=== PATIENT | male | born 1990 | race Caucasian/White ===

== ENCOUNTER 2017-11-30 13:38 | Emergency (ER) | payer SELFPAY ==
[2017-11-30 15:09] LABS: Bicarbonate 28 mEq/L (21-31); Glucose Level 90 mg/dL (65-120); Potassium 3.9 mEq/L (3.6-5.0); Sodium Level 139 mEq/L (135-145)
[2017-11-30 15:12] LABS: Protime INR 1.08
[2017-11-30 15:15] LABS: ALT/SGPT 19 IU/L (10-60); AST/SGOT 21 IU/L (10-42); Albumin 4.6 g/dL (3.2-5.5); Alkaline Phosphatase 84 IU/L (42-121); BUN Blood Urea Nitrogen 9 mg/dL (6-20); Bilirubin Direct 0.2 mg/dL (0-0.2); Bilirubin Total 0.8 mg/dL (0.3-1.2)
[2017-11-30 15:20] LABS: Absolute Lymphocytes (CBC) 2.3 K/uL (0.7-4.9); Absolute Monocytes 0.8 K/uL (0.1-1.3); Absolute Neutrophil 5.1 K/uL (1.8-8.0); Basophils % 0.8 % (0-1.3); Eosinophils % 0.9 % (0-4.4); Hematocrit 46.5 % (39.6-49.0); Lymphocytes % 27.8 % (15.3-44.8); MCH 30.9 pg (27.0-35.0); Monocytes % 9.4 % (3.3-12.3); RBC Red Blood Cell Count 5.11 M/uL (4.33-5.43)
[2017-11-30 15:26] LABS: Barbiturates NEGATIVE; Benzodiazepines NEGATIVE; Cocaine NEGATIVE; Opiates NEGATIVE; Phencyclidine NEGATIVE; THC Cannibis POSITIVE
[2017-11-30 15:27] LABS: METHAMPHETAM POSITIVE
[2017-11-30 15:27] LABS: Alcohol Serum/Plasma < 10 mg/dl; Salicylates Level < 4.0 mg/dl (<30)
[2017-11-30 15:34] LABS: Urine Blood NEGATIVE (NEG); Urine Glucose NEGATIVE (NEG); Urine Protein 1+ (NEG); Urine Specific Gravity 1.015 (1.005-1.030); Urine pH 7.5 (5.0-7.0)
--- NOTE | 2017-11-30 15:57 | EDPHYS ---
Physician Documentation [facility] Name: Kana Galdamez Age: 27 yrs Sex: Male : 1990 Arrival Date: 11/30/2017 Time: 13:42 Bed 18 Private MD: ED Physician Johnny Amaya HPI: 11/30 15:18 This 27 yrs old Male presents to ER via EMS with complaints of Suicidal pm1 Ideation. 15:18 The patient presents to the emergency department with depression, over work, inability pm1 to find a job, suicide ideation, but the patient has no formulated plan. Past psychiatric history: Prior diagnosis: bipolar disorder, ADD, Psychiatric medications include: unable to afford his medications for the past 3 months: Seroquel 400 mg PO BID , Adderall ? mg once daily, Trazodone 50 mg PO HS, Depakote ? mg PO BID, Primary psychiatric physician: the patient does not have a primary psychiatric physician, the patient has had a prior suicide gesture, Hanging attempt and found unresponsive 1 year ago, the patient has a previous inpatient psychiatric history. Associated signs and symptoms: Pertinent positives; depression, suicide ideation, Pertinent negatives: abdominal pain, chest pain, hallucinations, homicidal ideation, paranoia, substance abuse. The patient has experienced similar episodes in the past, multiple times. The patient has not recently seen a physician. Historical: - Allergies: 14:04 NKA; iw - PMHx: 14:04 ADD/ADHD; Asthma; Bipolar disorder; Depression; HEARING IMPAIRED; iw - PSHx: 12/01 02:17 Unable to obtain; ak1 - Immunization history:: Adult Immunizations unknown. - Social history:: Smoking status: Patient/guardian denies using tobacco. ROS: 11/30 16:00 Constitutional: Negative for fever, chills, and weight loss, Eyes: Negative for injury, pm1 pain, redness, and discharge, ENT: Negative for injury, pain, and discharge, Neck: Negative for injury, pain, and swelling, Cardiovascular: Negative for chest pain, palpitations, and edema, Respiratory: Negative for shortness of breath, cough, wheezing, and pleuritic chest pain, Abdomen/GI: Negative for abdominal pain, nausea, vomiting, diarrhea, and constipation, Back: Negative for injury and pain, : Negative for injury, bleeding, discharge, and swelling, MS/Extremity: Negative for injury and deformity, Skin: Negative for injury, rash, and discoloration, Neuro: Negative for headache, weakness, numbness, tingling, and seizure. Psych: Positive for depression, suicidal ideation, Negative for alcohol dependence, auditory hallucinations, visual hallucinations, homicidal ideation. Exam: 16:00 Constitutional: This is a well developed, well nourished patient who is awake, alert, pm1 and in no acute distress. Head/Face: Normocephalic, atraumatic. Eyes: Pupils equal round and reactive to light, extra-ocular motions intact. Lids and lashes normal. Conjunctiva and sclera are non-icteric and not injected. Cornea within normal limits. Periorbital areas with no swelling, redness, or edema. ENT: Nares patent. No nasal discharge, no septal abnormalities noted. Tympanic membranes are normal and external auditory canals are clear. Oropharynx with no redness, swelling, or masses, exudates, or evidence of obstruction, uvula midline. Mucous membranes moist. Neck: Trachea midline, no thyromegaly or masses palpated, and no cervical lymphadenopathy. Supple, full range of motion without nuchal rigidity, or vertebral point tenderness. No Meningismus. Chest/axilla: Normal chest wall appearance and motion. Nontender with no deformity. No lesions are appreciated. Cardiovascular: Regular rate and rhythm with a normal S1 and S2. No gallops, murmurs, or rubs. Normal PMI, no JVD. No pulse deficits. Respiratory: Lungs have equal breath sounds bilaterally, clear to auscultation and percussion. No rales, rhonchi or wheezes noted. No increased work of breathing, no retractions or nasal flaring. Abdomen/GI: Soft, non-tender, with normal bowel sounds. No distension or tympany. No guarding or rebound. No evidence of tenderness throughout. Back: No spinal tenderness. No costovertebral tenderness. Full range of motion. Skin: Warm, dry with normal turgor. Normal color with no rashes, no lesions, and no evidence of cellulitis. MS/ Extremity: Pulses equal, no cyanosis. Neurovascular intact. Full, normal range of motion. 16:00 Neuro: Orientation: is normal, Motor: is normal, moves all fours. 16:00 Psych: Behavior/mood is cooperative, depressed, Affect is animated, Oriented to person, place, time, Patient having thoughts of suicide. Denies suicidal plan. Delusions/hallucinations are not present. Vital Signs: 14:25 BP 128 / 73; Pulse 77; Resp 18; Temp 97.8(T); Pulse Ox 100% ; Pain 0/10; tt1 15:30 BP 118 / 69; Pulse 76; Resp 16; Pulse Ox 100% on R/A; kr2 16:27 BP 116 / 65; Pulse 82; Resp 16; Pulse Ox 100% on R/A; lk1 17:30 BP 107 / 64; Pulse 79; Resp 16; Pulse Ox 100% on R/A; lk1 18:28 BP 114 / 51; Pulse 69; Resp 18; Pulse Ox 100% on R/A; Pain 0/10; lk1 20:30 BP 111 / 62; Pulse 70; Resp 16; Pulse Ox 100% on R/A; lk1 12/01 00:21 BP 109 / 62; Pulse 67; Resp 16; Pulse Ox 99% on R/A; Pain 0/10; lk1 08:32 BP 112 / 68; Pulse 72; Resp 16 S; Pulse Ox 97% on R/A; jl7 13:16 BP 122 / 62; Pulse 70; Resp 14; Pulse Ox 100% on R/A; mh5 17:45 BP 118 / 78; Pulse 72; Resp 15; Pulse Ox 100% on R/A; mh5 21:31 BP 117 / 70; Pulse 67; Pulse Ox 100% ; fv 23:00 fv 12/02 04:25 fv 08:30 BP 111 / 66; Pulse 70; Resp 16; Pulse Ox 100% on R/A; rb1 12:30 BP 103 / 70; Pulse 78; Resp 16; Pulse Ox 100% on R/A; rb1 12/01 23:00 Patient sleeping fv 12/02 04:25 patient sleeping fv MDM: 11/30 13:52 Patient medically screened. pm1 15:55 Data reviewed: vital signs. Data interpreted: Pulse oximetry: on room air is 100 %. pm1 Interpretation: normal. Counseling: I had a detailed discussion with the patient and/or guardian regarding: the historical points, exam findings, and any diagnostic results supporting the discharge/admit diagnosis, the need to transfer to another facility, [facility] does not immediately have the required specialist. 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 While he has been in the ER he has been looking for a job through his friends and family. 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 Tomorrow he has a computer job that was secured through his brother that starts at 0630 tomorrow. The patient would like to be released so that he can go to work today. He was depressed that he did not have a job, but now that he has two jobs lined up, he is excited to go to work and make some money. He denies any current suicidal ideation and has no plans of hurting himself or others. 11/30 13:45 Order name: Acetaminophen; Complete Time: 15:38 pm11/30 13:45 Order name: Basic Metabolic Panel; Complete Time: 15:38 pm11/30 13:45 Order name: CBC with Diff; Complete Time: 16:32 pm11/30 13:45 Order name: ETOH Level; Complete Time: 15:38 pm11/30 13:45 Order name: Hepatic Function; Complete Time: 15:38 pm11/30 13:45 Order name: PT-INR; Complete Time: 15:38 pm11/30 13:45 Order name: Ptt, Activated; Complete Time: 15:38 pm11/30 13:45 Order name: Salicylate; Complete Time: 15:38 pm11/30 13:45 Order name: Urine Drug Screen; Complete Time: 15:38 pm11/30 13:45 Order name: EKG; Complete Time: 13:46 pm11/30 15:16 Order name: Urine Dipstick--Ancillary (enter results); Complete Time: 15:38 ag 12/01 07:47 Order name: Diet Regular; Complete Time: 07:48 rb1 11/30 13:45 Order name: EKG - Nurse/Tech; Complete Time: 14:45 pm11/30 13:45 Order name: IV Saline Lock; Complete Time: 02:23 pm11/30 13:45 Order name: Labs collected and sent; Complete Time: 14:45 pm11/30 13:45 Order name: Urine Dipstick-Ancillary (obtain specimen); Complete Time: 02:24 pm1 12/01 12:11 Order name: Diet Regular; Complete Time: 12:11 rb1 12/01 14:32 Order name: Diet Regular; Complete Time: 14:33 ss 12/01 17:42 Order name: Diet Regular; Complete Time: 17:42 rb1 12/02 07:27 Order name: Diet Regular; Complete Time: 07:28 rb1 12/02 11:28 Order name: Diet Regular; Complete Time: 11:28 rb1 Administered Medications: 12/01 15:45 Drug: hydrOXYzine 25 mg Route: PO; jl7 20:36 Follow up: Patient sleeping not in any distress fv 15:45 Drug: Nicotine 21 mg/24 hr 1 patches {Note: placed on left deltoid per pt request.} jl7 Route: Transdermal; Site: affected area; Disposition: 12/03 13:51 Co-signature as Attending Physician, Johnny Amaya MD I agree with the assessment and wa plan of care. Disposition: 12/02/17 14:52 Discharged to Home. Impression: Acute stress reaction. - Condition is Stable. - Discharge Instructions: No-harm Safety Contract. - Medication Reconciliation Form, Thank You Letter form. - Follow up: Emergency Department; When: As needed; Reason: Worsening of condition. Follow up: Private Physician; When: 2 - 3 days; Reason: Recheck today's complaints, Continuance of care, Re-evaluation by your physician. - Problem is new. - Symptoms have improved. Signatures: Dispatcher [employer] Katie Cartagena RN RN iw Krenek, Amber RN RN ak1 Akilah Camacho, RN RN rb1 Nader Reilly, ORDER DESK CLERK ORDER DESK CLERK pm1 Ora Sales RN RN jl7 Johnny Amaya MD MD wa Reaves, Karey, RN RN kr2 Sisi Crump Flomeliza RN fv Corrections: (The following items were deleted from the chart) 12/01 07:11/30 15:57 11/30/2017 15:57 Transfer ordered to Psych Facility. Diagnosis is Suicidal eb ideations. Reason for transfer: Higher level of care. Accepting physician is Psychiatrist . Condition is Stable. Problem is new. Symptoms have improved. pm1 12/02 14:51 12/01 07:27 11/30/2017 15:57 Transfer ordered to Psych Facility. Diagnosis is Suicidal pm1 ideations. Reason for transfer: Higher level of care. Accepting physician is Psychiatrist . Condition is Stable. Problem is new. Symptoms have improved. eb 12/02 14:52 14:52 12/02/2017 14:52 Discharged to Home. Impression: Major depressive disorder, pm1 recurrent, unspecified. Condition is Stable. Forms are Medication Reconciliation Form, Thank You Letter, Antibiotic Education, Prescription Opioid Use. Follow up: Emergency Department; When: As needed; Reason: Worsening of condition. Follow up: Private Physician; When: 2 - 3 days; Reason: Recheck today's complaints, Continuance of care, Re-evaluation by your physician. Problem is new. Symptoms have improved. pm1 15: 14:52 12/02/2017 14:52 Discharged to Home. Impression: Acute stress reaction. Condition rb1 is Stable. Forms are Medication Reconciliation Form, Thank You Letter, Antibiotic Education, Prescription Opioid Use. Follow up: Emergency Department; When: As needed; Reason: Worsening of condition. Follow up: Private Physician; When: 2 - 3 days; Reason: Recheck today's complaints, Continuance of care, Re-evaluation by your physician. Problem is new. Symptoms have improved. pm1
--- NOTE | 2017-11-30 15:57 | ER ---
Nurse's Notes [facility] Name: Kana Galdamez Age: 27 yrs Sex: Male : 1990 Arrival Date: 11/30/2017 Time: 13:42 Bed 18 Private MD: Diagnosis: Acute stress reaction Presentation: 11/30 13:42 Presenting complaint: Patient states: "I have no way to get a job, no one will hire me, iw I can't provide for myself, I just don't know what to do with myself, I feel like a piece of trash", when asked if pt has thoughts of killing himself, pt states "I don't know, I don't have any thoughts right now, I'm gonna do whatever makes me happy, whether it's killing myself or whatever I need to do" pt denies plan at this time, when asked f he has tried to kill himself in past pt states "I've tried to hang myself, I tried drinking bleach, I tried to use a gun and the bullet didn't go through, I tried taking pills, I can't even do that right". Transition of care: patient was not received from another setting of care. Onset of symptoms was November 30, 2017. Initial Sepsis Screen: Does the patient meet any 2 criteria? No. Patient's initial sepsis screen is negative. Does the patient have a suspected source of infection? No. Patient's initial sepsis screen is negative. Care prior to arrival: None. 13:42 Method Of Arrival: EMS 13:42 Acuity: RHETT 2 iw Historical: - Allergies: 14:04 NKA; iw - PMHx: 14:04 ADD/ADHD; Asthma; Bipolar disorder; Depression; HEARING IMPAIRED; iw - PSHx: 12/01 02:17 Unable to obtain; ak1 - Immunization history:: Adult Immunizations unknown. - Social history:: Smoking status: Patient/guardian denies using tobacco. Screenin/04 14:00 Abuse screen: Denies threats or abuse. Denies injuries from another. Nutritional kr2 screening: No deficits noted. Tuberculosis screening: No symptoms or risk factors identified. Fall Risk None identified. Assessment: 14:00 General: Appears in no apparent distress. comfortable, unkempt, well developed, well kr2 nourished, Behavior is cooperative, agitated, anxious. Pain: Denies pain. Neuro: Level of Consciousness is awake, alert, obeys commands, Oriented to person, place, time, situation. Cardiovascular: Capillary refill < 3 seconds in bilateral fingers Patient's skin is warm and dry. Respiratory: Airway is patent Respiratory effort is even, unlabored, Respiratory pattern is regular, symmetrical. GI: Abdomen is flat, non-distended. : No signs and/or symptoms were reported regarding the genitourinary system. EENT: Nares are clear Oral mucosa is moist. Derm: Skin is intact, is healthy with good turgor, Skin is pink, warm \\T\\ dry. Musculoskeletal: Circulation, motion, and sensation intact. 15:00 Reassessment: Patient and/or family updated on plan of care and expected duration. Pain lk1 level reassessed. Patient is alert, oriented x 3, equal unlabored respirations, skin warm/dry/pink. Patient states feeling better. General: Appears in no apparent distress. Behavior is calm, cooperative, appropriate for age. 16:34 Reassessment: [facility] reports there are no adult male discharges today but pt iw will remain on the wait list. 12/01 02:18 Reassessment: pt resting with eyes closed, resp even and unlabored, skin warm and dry. ak1 will continue to monitor. pt with sitter at bedside. 04:23 Reassessment: Patient appears in no apparent distress at this time. No changes from ak1 previously documented assessment. pt resting with eyes closed, sitter remains at bedside. 05:33 Reassessment: Patient appears in no apparent distress at this time. No changes from ak1 previously documented assessment. 06:30 Reassessment: Patient appears in no apparent distress at this time. No changes from ak1 previously documented assessment. sitter at bedside. pt resting with eyes closed, resp even and unlabored, skin warm and dry. will continue to monitor. 07:00 Reassessment: Patient appears in no apparent distress at this time. pt laying in bed jl7 with eyes closed, respiration even and unlabored, sitter remains at bedside. 08:00 Reassessment: No changes from previously documented assessment. jl7 12:00 Reassessment: pt sitting in bed watching TV, denies discomfort at this time. jl7 15:00 Reassessment: Pt requesting to smoke, provider notified, see MAR for orders. jl7 19:00 Reassessment: Patient appears in no apparent distress at this time. No changes from jd3 previously documented assessment. Patient and/or family updated on plan of care and expected duration. Pain level reassessed. Patient is alert, oriented x 3, equal unlabored respirations, skin warm/dry/pink. 21:09 Reassessment: No changes from previously documented assessment. General: appears to be fv sleeping prone postition. 21:33 Reassessment: Patient awake not in any distress, snacks served, stated need something fv to eat and drink.. 22:00 Reassessment: No changes from previously documented assessment. Respiratory: No fv deficits noted. 12/02 01:00 Reassessment: Patient not in any apparent distress sleeping most of the time. fv 03:00 Reassessment: No changes from previously documented assessment. fv 04:00 Reassessment: Patient sleeping not in any distress. fv 07:00 General: Appears in no apparent distress. comfortable, Behavior is calm, cooperative. rb1 Neuro: Level of Consciousness is awake, alert, obeys commands, Oriented to person, place, time, situation. Cardiovascular: Capillary refill < 3 seconds is brisk in bilateral fingers. Respiratory: Airway is patent Respiratory effort is even, unlabored, Respiratory pattern is regular, symmetrical. Derm: Skin is pink, warm \\T\\ dry. 08:00 Reassessment: pt. is resting with eyes closed, respirations even, unlabored. sitter at rb1 bedside. 09:00 Reassessment: Patient appears in no apparent distress at this time. Pt. is sitting on rb1 bedside eating breakfast. 09:18 Reassessment: Pt. ambulated to the restroom with supervision without incident. rb1 10:00 Reassessment: Patient appears in no apparent distress at this time. Patient and/or rb1 family updated on plan of care and expected duration. Pain level reassessed. Patient is alert, oriented x 3, equal unlabored respirations, skin warm/dry/pink. Patient denies pain at this time. 11:00 Reassessment: Patient appears in no apparent distress at this time. No changes from rb1 previously documented assessment. pt. is playing on his phone. 11:56 Reassessment: Patient appears in no apparent distress at this time. Patient and/or rb1 family updated on plan of care and expected duration. Pain level reassessed. Patient is alert, oriented x 3, equal unlabored respirations, skin warm/dry/pink. 12:50 Reassessment: Patient appears in no apparent distress at this time. No changes from rb1 previously documented assessment. pt. is eating lunch at the bedside. 13:45 Reassessment: Patient appears in no apparent distress at this time. Patient and/or rb1 family updated on plan of care and expected duration. Pain level reassessed. Patient is alert, oriented x 3, equal unlabored respirations, skin warm/dry/pink. 14:45 Reassessment: Patient appears in no apparent distress at this time. No changes from rb1 previously documented assessment. pt. is waiting to be discharged. Psych: 11/30 14:00 Subjective: Patient's mood is sad, irritable, hopeless, Delusions are denied, kr2 Hallucinations are denied Having thoughts of "doing whatever it takes to be happy. I have tried to kill myself before. I tried to hang myself, I tried taking drugs, I tried to shoot myself but the gun wouldn't fire.". Objective: Patient is irritable, Speech is rambling, Affect is inappropriate. Interventions: Removed personal items and placed in bag. Patient placed in hospital gown. Searched person for dangerous items. Suicide Risk Assessment: Sad Person Scale: Sex of patient: Male: Score 1 point. Age of patient: Score 1 point if patient 15-34. Depression: Score 1 point if signs of depression are present. Previous Attempt: Score 1 point if patient has previously attempted suicide. Substance Abuse: Score 1 point if patient abuses alcohol or drugs. Rational Thinking: Score 1 point if patient is lacking rational thinking. Social Support: Score 1 point if social support is lacking and/or unavailable. Organized Plan: Score 0 if patient did not have an organized plan in place. Relationship: Score 1 point if patient is , , , or for a single male Chronic Sickness: Score 0 point if patient does not have a chronic illness, debilitating, or severe disorder. Safety Checks: Personal items have been removed. Door is open. No visitors are present at this time. sitter present. Pt denies substance abuse. Vital Signs: 14:25 BP 128 / 73; Pulse 77; Resp 18; Temp 97.8(T); Pulse Ox 100% ; Pain 0/10; tt1 15:30 BP 118 / 69; Pulse 76; Resp 16; Pulse Ox 100% on R/A; kr2 16:27 BP 116 / 65; Pulse 82; Resp 16; Pulse Ox 100% on R/A; lk1 17:30 BP 107 / 64; Pulse 79; Resp 16; Pulse Ox 100% on R/A; lk1 18:28 BP 114 / 51; Pulse 69; Resp 18; Pulse Ox 100% on R/A; Pain 0/10; lk1 20:30 BP 111 / 62; Pulse 70; Resp 16; Pulse Ox 100% on R/A; lk1 12/01 00:21 BP 109 / 62; Pulse 67; Resp 16; Pulse Ox 99% on R/A; Pain 0/10; lk1 08:32 BP 112 / 68; Pulse 72; Resp 16 S; Pulse Ox 97% on R/A; jl7 13:16 BP 122 / 62; Pulse 70; Resp 14; Pulse Ox 100% on R/A; mh5 17:45 BP 118 / 78; Pulse 72; Resp 15; Pulse Ox 100% on R/A; mh5 21:31 BP 117 / 70; Pulse 67; Pulse Ox 100% ; fv 23:00 fv 12/02 04:25 fv 08:30 BP 111 / 66; Pulse 70; Resp 16; Pulse Ox 100% on R/A; rb1 12:30 BP 103 / 70; Pulse 78; Resp 16; Pulse Ox 100% on R/A; rb1 12/01 23:00 Patient sleeping fv 12/02 04:25 patient sleeping fv ED Course: 11/30 13:42 Patient arrived in ED. iw 13:43 Nader Reilly NP is PHCP. pm1 13:43 Johnny Amaya MD is Attending Physician. pm1 13:48 Triage completed. iw 13:55 Patient has correct armband on for positive identification. Placed in gown. Bed in low kr2 position. Valuables at nurses station. Sitter at bedside. 14:00 Safety Checks: Personal items have been removed The door is open or patient has been kr2 placed in a hallway bed/chair. There are no family/friend visitors at this time sitter at bedside. 14:00 Arm band placed on. kr2 14:15 Safety Checks: Personal items have been removed The door is open or patient has been kr2 placed in a hallway bed/chair. There are no family/friend visitors at this time Sitter at bedside. 14:26 EKG done, by electronic lab technician. reviewed by Johnny Amaya MD. at1 14:30 Safety Checks: Personal items have been removed The door is open or patient has been kr2 placed in a hallway bed/chair. There are no family/friend visitors at this time Sitter at bedside. 14:30 Missed attempt(s): 20 gauge in right antecubital area. Bleeding controlled, band aid tt1 applied, catheter tip intact. 14:45 Safety Checks: Personal items have been removed The door is open or patient has been kr2 placed in a hallway bed/chair. There are no family/friend visitors at this time. 14:45 Inserted saline lock: 22 gauge in left antecubital area, using aseptic technique. Blood kr2 collected. Patient states, "Sticking me for IV's hurts, next time I will not tell my friend or anybody what I am thinking I will just shoot myself." Patient demanded IV be removed, stating "it hurts too much." IV dc'd, tip intact, bleeding stopped, bandage applied. Provider notified of patient's statement. Sitter at bedside. 15:00 Safety Checks: Personal items have been removed The door is open or patient has been kr2 placed in a hallway bed/chair. There are no family/friend visitors at this time Sitter at bedside. 15:13 Marily Workman, GUSTABO is Primary Nurse. lk1 15:15 Safety Checks: Personal items have been removed The door is open or patient has been kr2 placed in a hallway bed/chair. There are no family/friend visitors at this time Sitter at bedside. 15:30 Safety Checks: Personal items have been removed The door is open or patient has been lk1 placed in a hallway bed/chair. There are no family/friend visitors at this time. 15:45 Safety Checks: Personal items have been removed The door is open or patient has been lk1 placed in a hallway bed/chair. There are no family/friend visitors at this time. 15:54 Patients demographics and results send out to all [facility] facilities. ag 16:00 Appears to be sleeping. Safety Checks: Personal items have been removed The door is lk1 open or patient has been placed in a hallway bed/chair. There are no family/friend visitors at this time. 16:00 per [facility] has no male beds and will have to put him on a wait list. eb 16:15 Appears to be sleeping. Safety Checks: Personal items have been removed The door is lk1 open or patient has been placed in a hallway bed/chair. There are no family/friend visitors at this time. 16:30 Appears to be sleeping. Safety Checks: Personal items have been removed The door is lk1 open or patient has been placed in a hallway bed/chair. There are no family/friend visitors at this time. 16:45 Safety Checks: Personal items have been removed The door is open or patient has been lk1 placed in a hallway bed/chair. There are no family/friend visitors at this time. 17:00 Safety Checks: Personal items have been removed The door is open or patient has been lk1 placed in a hallway bed/chair. There are no family/friend visitors at this time. 17:15 Appears to be sleeping. Safety Checks: Personal items have been removed The door is lk1 open or patient has been placed in a hallway bed/chair. There are no family/friend visitors at this time. 17:30 Safety Checks: Personal items have been removed The door is open or patient has been lk1 placed in a hallway bed/chair. There are no family/friend visitors at this time. 17:45 eating sandwich and chips. Safety Checks: Personal items have been removed The door is lk1 open or patient has been placed in a hallway bed/chair. There are no family/friend visitors at this time. 18:00 Appears to be sleeping. Safety Checks: Personal items have been removed The door is lk1 open or patient has been placed in a hallway bed/chair. There are no family/friend visitors at this time. 18:12 PHCP role handed off by Nader Reilly NP kb 18:12 Monisha Matute FNP-C is PHCP. kb 18:15 Appears to be sleeping. Safety Checks: Personal items have been removed The door is lk1 open or patient has been placed in a hallway bed/chair. There are no family/friend visitors at this time. 18:30 Appears to be sleeping. Safety Checks: Personal items have been removed The door is lk1 open or patient has been placed in a hallway bed/chair. There are no family/friend visitors at this time. 18:45 Appears to be sleeping. Safety Checks: Personal items have been removed The door is lk1 open or patient has been placed in a hallway bed/chair. There are no family/friend visitors at this time. 19:00 Appears to be sleeping. Safety Checks: Personal items have been removed The door is lk1 open or patient has been placed in a hallway bed/chair. There are no family/friend visitors at this time. 19:15 Appears to be sleeping. Safety Checks: Personal items have been removed The door is lk1 open or patient has been placed in a hallway bed/chair. There are no family/friend visitors at this time. 19:30 Appears to be sleeping. Safety Checks: Personal items have been removed The door is lk1 open or patient has been placed in a hallway bed/chair. There are no family/friend visitors at this time. 19:45 Appears to be sleeping. Safety Checks: Personal items have been removed The door is lk1 open or patient has been placed in a hallway bed/chair. There are no family/friend visitors at this time. 20:00 Appears to be sleeping. Safety Checks: Personal items have been removed The door is lk1 open or patient has been placed in a hallway bed/chair. There are no family/friend visitors at this time. 20:15 Appears to be sleeping. Safety Checks: Personal items have been removed The door is lk1 open or patient has been placed in a hallway bed/chair. There are no family/friend visitors at this time. 20:30 Appears to be sleeping. Safety Checks: Personal items have been removed The door is lk1 open or patient has been placed in a hallway bed/chair. There are no family/friend visitors at this time. 20:45 Appears to be sleeping. Safety Checks: Personal items have been removed The door is lk1 open or patient has been placed in a hallway bed/chair. There are no family/friend visitors at this time. 21:00 Appears to be sleeping. Safety Checks: Personal items have been removed The door is lk1 open or patient has been placed in a hallway bed/chair. There are no family/friend visitors at this time. 21:15 Appears to be sleeping. Safety Checks: Personal items have been removed The door is lk1 open or patient has been placed in a hallway bed/chair. There are no family/friend visitors at this time. 21:30 Appears to be sleeping. Safety Checks: Personal items have been removed The door is lk1 open or patient has been placed in a hallway bed/chair. There are no family/friend visitors at this time. 21:45 Appears to be sleeping. Safety Checks: Personal items have been removed The door is lk1 open or patient has been placed in a hallway bed/chair. There are no family/friend visitors at this time. 22:00 Appears to be sleeping. Safety Checks: Personal items have been removed The door is lk1 open or patient has been placed in a hallway bed/chair. There are no family/friend visitors at this time. 22:15 Appears to be sleeping. Safety Checks: Personal items have been removed The door is lk1 open or patient has been placed in a hallway bed/chair. There are no family/friend visitors at this time 1:1 sitter. 22:30 Appears to be sleeping. Safety Checks: Personal items have been removed The door is lk1 open or patient has been placed in a hallway bed/chair. There are no family/friend visitors at this time. 22:45 Appears to be sleeping. Safety Checks: Personal items have been removed The door is lk1 open or patient has been placed in a hallway bed/chair. There are no family/friend visitors at this time. 23:00 Appears to be sleeping. Safety Checks: Personal items have been removed The door is lk1 open or patient has been placed in a hallway bed/chair. There are no family/friend visitors at this time. 23:15 Appears to be sleeping. Safety Checks: Personal items have been removed The door is lk1 open or patient has been placed in a hallway bed/chair. There are no family/friend visitors at this time. 23:30 Appears to be sleeping. Safety Checks: Personal items have been removed The door is lk1 open or patient has been placed in a hallway bed/chair. There are no family/friend visitors at this time. 23:45 Appears to be sleeping. Safety Checks: Personal items have been removed The door is lk1 open or patient has been placed in a hallway bed/chair. There are no family/friend visitors at this time. 12/01 00:00 Appears to be sleeping. Safety Checks: Personal items have been removed The door is lk1 open or patient has been placed in a hallway bed/chair. There are no family/friend visitors at this time. 00:15 Appears to be sleeping. Safety Checks: Personal items have been removed The door is lk1 open or patient has been placed in a hallway bed/chair. There are no family/friend visitors at this time. 00:30 Appears to be sleeping. Safety Checks: Personal items have been removed The door is lk1 open or patient has been placed in a hallway bed/chair. There are no family/friend visitors at this time. 00:45 Appears to be sleeping. transfer approval from receiving facility. Safety Checks: lk1 Personal items have been removed The door is open or patient has been placed in a hallway bed/chair. There are no family/friend visitors at this time. 00:45 Safety Checks: Personal items have been removed The door is open or patient has been fv placed in a hallway bed/chair. There are no family/friend visitors at this time. 01:00 Appears to be sleeping. Safety Checks: Personal items have been removed The door is lk1 open or patient has been placed in a hallway bed/chair. There are no family/friend visitors at this time. 01:15 Appears to be sleeping. Safety Checks: Personal items have been removed The door is lk1 open or patient has been placed in a hallway bed/chair. There are no family/friend visitors at this time. 01:30 Safety Checks: Personal items have been removed The door is open or patient has been ak1 placed in a hallway bed/chair. There are no family/friend visitors at this time. 01:45 Safety Checks: Personal items have been removed The door is open or patient has been ak1 placed in a hallway bed/chair. There are no family/friend visitors at this time. 02:00 Safety Checks: Personal items have been removed The door is open or patient has been ak1 placed in a hallway bed/chair. There are no family/friend visitors at this time. 02:15 Safety Checks: Personal items have been removed The door is open or patient has been ak1 placed in a hallway bed/chair. There are no family/friend visitors at this time. 02:17 No provider procedures requiring assistance completed. Patient did not have IV access ak1 during this emergency room visit. 02:30 Safety Checks: Personal items have been removed The door is open or patient has been ak1 placed in a hallway bed/chair. There are no family/friend visitors at this time. 02:45 Appears to be sleeping. Safety Checks: Personal items have been removed The door is ak1 open or patient has been placed in a hallway bed/chair. There are no family/friend visitors at this time. 03:00 Safety Checks: Personal items have been removed The door is open or patient has been ak1 placed in a hallway bed/chair. There are no family/friend visitors at this time. 03:15 Safety Checks: Personal items have been removed The door is open or patient has been ak1 placed in a hallway bed/chair. There are no family/friend visitors at this time. 03:30 Safety Checks: Personal items have been removed The door is open or patient has been ak1 placed in a hallway bed/chair. There are no family/friend visitors at this time. 03:45 Safety Checks: Personal items have been removed The door is open or patient has been ak1 placed in a hallway bed/chair. There are no family/friend visitors at this time. 04:00 Safety Checks: Personal items have been removed The door is open or patient has been ak1 placed in a hallway bed/chair. There are no family/friend visitors at this time pt with sitter at bedside. 04:15 Appears to be sleeping. Safety Checks: Personal items have been removed The door is ak1 open or patient has been placed in a hallway bed/chair. There are no family/friend visitors at this time. 04:30 Safety Checks: Personal items have been removed The door is open or patient has been ak1 placed in a hallway bed/chair. There are no family/friend visitors at this time. 04:45 Safety Checks: Personal items have been removed The door is open or patient has been ak1 placed in a hallway bed/chair. There are no family/friend visitors at this time. 05:00 Appears to be sleeping. transfer. Safety Checks: Personal items have been removed The ak1 door is open or patient has been placed in a hallway bed/chair. There are no family/friend visitors at this time. 05:15 Safety Checks: Personal items have been removed The door is open or patient has been ak1 placed in a hallway bed/chair. There are no family/friend visitors at this time. 05:30 Safety Checks: Personal items have been removed The door is open or patient has been ak1 placed in a hallway bed/chair. There are no family/friend visitors at this time. 05:45 Safety Checks: Personal items have been removed The door is open or patient has been ak1 placed in a hallway bed/chair. There are no family/friend visitors at this time. 06:00 Appears to be sleeping. transfer. Safety Checks: Personal items have been removed The ak1 door is open or patient has been placed in a hallway bed/chair. There are no family/friend visitors at this time. 06:15 Safety Checks: Personal items have been removed The door is open or patient has been ak1 placed in a hallway bed/chair. There are no family/friend visitors at this time. 06:27 PHCP role handed off by Monisha Matute FNP-C pm1 06:27 Nader Reilly NP is PHCP. pm1 06:30 Appears to be sleeping. transfer. Safety Checks: Personal items have been removed The ak1 door is open or patient has been placed in a hallway bed/chair. There are no family/friend visitors at this time. 06:45 Appears to be sleeping. transfer. Safety Checks: Personal items have been removed The ak1 door is open or patient has been placed in a hallway bed/chair. There are no family/friend visitors at this time. 07:00 Safety Checks: Personal items have been removed The door is open or patient has been jl7 placed in a hallway bed/chair. There are no family/friend visitors at this time. 07:15 Safety Checks: Personal items have been removed The door is open or patient has been jl7 placed in a hallway bed/chair. There are no family/friend visitors at this time. 07:24 [facility] spoke to nAt who will be paging a industrial relations representative to come eb out and evaluate the patient. 07:30 Safety Checks: Personal items have been removed The door is open or patient has been jl7 placed in a hallway bed/chair. There are no family/friend visitors at this time. 07:45 Safety Checks: Personal items have been removed The door is open or patient has been jl7 placed in a hallway bed/chair. There are no family/friend visitors at this time. 08:00 Safety Checks: Personal items have been removed The door is open or patient has been jl7 placed in a hallway bed/chair. There are no family/friend visitors at this time. 08:15 Safety Checks: Personal items have been removed The door is open or patient has been jl7 placed in a hallway bed/chair. There are no family/friend visitors at this time. 08:30 Safety Checks: Personal items have been removed The door is open or patient has been jl7 placed in a hallway bed/chair. There are no family/friend visitors at this time. 08:45 Safety Checks: Personal items have been removed The door is open or patient has been jl7 placed in a hallway bed/chair. There are no family/friend visitors at this time. 09:00 Safety Checks: Personal items have been removed The door is open or patient has been jl7 placed in a hallway bed/chair. There are no family/friend visitors at this time. 09:11 Tonia from [facility] here to evaluate patient. eb 09:15 Safety Checks: Personal items have been removed The door is open or patient has been jl7 placed in a hallway bed/chair. There are no family/friend visitors at this time. 09:30 Safety Checks: Personal items have been removed The door is open or patient has been jl7 placed in a hallway bed/chair. There are no family/friend visitors at this time. 09:45 Primary Nurse role handed off by Marily Workman RN jl 09:45 Ora Sales RN is Primary Nurse. 09:45 Safety Checks: Personal items have been removed The door is open or patient has been jl7 placed in a hallway bed/chair. There are no family/friend visitors at this time. 10:00 Safety Checks: Personal items have been removed The door is open or patient has been jl7 placed in a hallway bed/chair. There are no family/friend visitors at this time. 10:15 Safety Checks: Personal items have been removed The door is open or patient has been jl7 placed in a hallway bed/chair. There are no family/friend visitors at this time. 10:30 Safety Checks: Personal items have been removed The door is open or patient has been jl7 placed in a hallway bed/chair. There are no family/friend visitors at this time. 10:45 Safety Checks: Personal items have been removed The door is open or patient has been jl7 placed in a hallway bed/chair. There are no family/friend visitors at this time. 11:00 Safety Checks: Personal items have been removed The door is open or patient has been jl7 placed in a hallway bed/chair. There are no family/friend visitors at this time. 11:15 Safety Checks: Personal items have been removed The door is open or patient has been jl7 placed in a hallway bed/chair. There are no family/friend visitors at this time. 11:30 Safety Checks: Personal items have been removed The door is open or patient has been jl7 placed in a hallway bed/chair. There are no family/friend visitors at this time. 11:45 Safety Checks: Personal items have been removed The door is open or patient has been jl7 placed in a hallway bed/chair. There are no family/friend visitors at this time. 12:00 Safety Checks: Personal items have been removed The door is open or patient has been jl7 placed in a hallway bed/chair. There are no family/friend visitors at this time. 12:15 Safety Checks: Personal items have been removed The door is open or patient has been jl7 placed in a hallway bed/chair. There are no family/friend visitors at this time. 12:30 Safety Checks: Personal items have been removed The door is open or patient has been jl7 placed in a hallway bed/chair. There are no family/friend visitors at this time. 12:45 Safety Checks: Personal items have been removed The door is open or patient has been jl7 placed in a hallway bed/chair. There are no family/friend visitors at this time. 13:00 Safety Checks: Personal items have been removed The door is open or patient has been jl7 placed in a hallway bed/chair. There are no family/friend visitors at this time. 13:15 Safety Checks: Personal items have been removed The door is open or patient has been jl7 placed in a hallway bed/chair. There are no family/friend visitors at this time. 13:30 Safety Checks: Personal items have been removed The door is open or patient has been jl7 placed in a hallway bed/chair. There are no family/friend visitors at this time. 13:45 Safety Checks: Personal items have been removed The door is open or patient has been jl7 placed in a hallway bed/chair. There are no family/friend visitors at this time. 14:00 Safety Checks: Personal items have been removed The door is open or patient has been jl7 placed in a hallway bed/chair. There are no family/friend visitors at this time. Safety Checks: Personal items have been removed. 14:15 Safety Checks: Personal items have been removed The door is open or patient has been jl7 placed in a hallway bed/chair. There are no family/friend visitors at this time. 14:30 Safety Checks: Personal items have been removed The door is open or patient has been jl7 placed in a hallway bed/chair. There are no family/friend visitors at this time. 14:45 Safety Checks: Personal items have been removed The door is open or patient has been jl7 placed in a hallway bed/chair. There are no family/friend visitors at this time. 15:00 Safety Checks: Personal items have been removed The door is open or patient has been jl7 placed in a hallway bed/chair. There are no family/friend visitors at this time. 15:15 Safety Checks: Personal items have been removed The door is open or patient has been jl7 placed in a hallway bed/chair. There are no family/friend visitors at this time. 15:30 Safety Checks: Personal items have been removed The door is open or patient has been jl7 placed in a hallway bed/chair. There are no family/friend visitors at this time. 15:45 Safety Checks: Personal items have been removed The door is open or patient has been jl7 placed in a hallway bed/chair. There are no family/friend visitors at this time. 16:00 Safety Checks: Personal items have been removed The door is open or patient has been jl7 placed in a hallway bed/chair. There are no family/friend visitors at this time. 16:15 Safety Checks: Personal items have been removed The door is open or patient has been jl7 placed in a hallway bed/chair. There are no family/friend visitors at this time. 16:30 Safety Checks: Personal items have been removed The door is open or patient has been jl7 placed in a hallway bed/chair. There are no family/friend visitors at this time. 16:45 Safety Checks: Personal items have been removed The door is open or patient has been jl7 placed in a hallway bed/chair. There are no family/friend visitors at this time. 17:00 Safety Checks: Personal items have been removed The door is open or patient has been jl7 placed in a hallway bed/chair. There are no family/friend visitors at this time. 17:15 Safety Checks: Personal items have been removed The door is open or patient has been jl7 placed in a hallway bed/chair. There are no family/friend visitors at this time. 17:30 Safety Checks: Personal items have been removed The door is open or patient has been jl7 placed in a hallway bed/chair. There are no family/friend visitors at this time. 17:45 Safety Checks: Personal items have been removed The door is open or patient has been jl7 placed in a hallway bed/chair. There are no family/friend visitors at this time. 18:00 Safety Checks: Personal items have been removed The door is open or patient has been jl7 placed in a hallway bed/chair. There are no family/friend visitors at this time. 18:15 Safety checks: Items removed: yes. Door open/sign placed on door: yes. Family/friend mh5 present: no. 18:30 Safety checks: Items removed: yes. Door open/sign placed on door: yes. Family/friend mh5 present: no. 18:58 Safety checks: Items removed: yes. Door open/sign placed on door: yes. Family/friend mh5 present: no. 19:03 Report given to GUSTABO [place]. jl7 19:05 Safety checks: Items removed: yes. Door open/sign placed on door: yes. Family/friend oe present: no. 19:15 Safety checks: Items removed: yes. Door open/sign placed on door: yes. Family/friend oe present: no. 19:30 Safety checks: Items removed: yes. Door open/sign placed on door: yes. Family/friend oe present: no. 19:45 Safety checks: Items removed: yes. Door open/sign placed on door: yes. Family/friend oe present: no. 20:00 Assumed care of patient, currently sleeping. fv 20:03 Door closed. Lights dimmed. fv 20:12 Safety Checks: Personal items have been removed The door is open or patient has been fv placed in a hallway bed/chair. There are no family/friend visitors at this time. 20:32 Safety Checks: Personal items have been removed The door is open or patient has been fv placed in a hallway bed/chair. There are no family/friend visitors at this time. 20:48 Safety Checks: Personal items have been removed The door is open or patient has been fv placed in a hallway bed/chair. There are no family/friend visitors at this time. 21:36 Safety Checks: Personal items have been removed The door is open or patient has been fv placed in a hallway bed/chair. There are no family/friend visitors at this time. 21:52 Safety Checks: Personal items have been removed The door is open or patient has been fv placed in a hallway bed/chair. There are no family/friend visitors at this time. 22:15 Safety Checks: Personal items have been removed The door is open or patient has been fv placed in a hallway bed/chair. There are no family/friend visitors at this time. 22:30 Safety Checks: Personal items have been removed The door is open or patient has been fv placed in a hallway bed/chair. There are no family/friend visitors at this time. 22:45 Safety Checks: Personal items have been removed The door is open or patient has been fv placed in a hallway bed/chair. There are no family/friend visitors at this time. 23:00 Safety Checks: Personal items have been removed The door is open or patient has been fv placed in a hallway bed/chair. There are no family/friend visitors at this time. 23:06 Patient awake at this time alert, oriented not in any distress. Diet: Patient given fv snack. 23:15 Safety Checks: Personal items have been removed The door is open or patient has been fv placed in a hallway bed/chair. There are no family/friend visitors at this time. 23:30 Patient sleeping not in any apparent distress. fv 23:45 Safety Checks: Personal items have been removed The door is open or patient has been fv placed in a hallway bed/chair. There are no family/friend visitors at this time. 05 00:24 Safety Checks: Personal items have been removed The door is open or patient has been fv placed in a hallway bed/chair. There are no family/friend visitors at this time. 00:45 Safety Checks: Personal items have been removed The door is open or patient has been fv placed in a hallway bed/chair. There are no family/friend visitors at this time. 01:00 Appears to be sleeping. Safety Checks: Personal items have been removed The door is fv open or patient has been placed in a hallway bed/chair. There are no family/friend visitors at this time. 01:00 No needs at this time patient sleeping. fv 01:15 Appears to be sleeping. Safety Checks: Personal items have been removed The door is fv open or patient has been placed in a hallway bed/chair. There are no family/friend visitors at this time. 01:30 Appears to be sleeping. Safety Checks: Personal items have been removed The door is fv open or patient has been placed in a hallway bed/chair. There are no family/friend visitors at this time. 02:00 Appears to be sleeping. Safety Checks: Personal items have been removed The door is fv open or patient has been placed in a hallway bed/chair. There are no family/friend visitors at this time. 02:15 Safety Checks: Personal items have been removed The door is open or patient has been fv placed in a hallway bed/chair. There are no family/friend visitors at this time. 02:47 Safety Checks: Personal items have been removed The door is open or patient has been fv placed in a hallway bed/chair. There are no family/friend visitors at this time. 03:00 Patient sleeping most of the shift. fv 03:29 Appears to be sleeping. Safety Checks: Personal items have been removed The door is fv open or patient has been placed in a hallway bed/chair. There are no family/friend visitors at this time. 03:45 Appears to be sleeping. Safety Checks: Personal items have been removed The door is fv open or patient has been placed in a hallway bed/chair. There are no family/friend visitors at this time. 04:00 Safety Checks: Personal items have been removed The door is open or patient has been fv placed in a hallway bed/chair. There are no family/friend visitors at this time. 04:15 Safety Checks: Personal items have been removed The door is open or patient has been fv placed in a hallway bed/chair. There are no family/friend visitors at this time. 04:30 Safety Checks: Personal items have been removed The door is open or patient has been fv placed in a hallway bed/chair. There are no family/friend visitors at this time. 04:45 Appears to be sleeping. Safety Checks: Personal items have been removed The door is fv open or patient has been placed in a hallway bed/chair. There are no family/friend visitors at this time. 05:00 Appears to be sleeping. Safety Checks: Personal items have been removed The door is fv open or patient has been placed in a hallway bed/chair. There are no family/friend visitors at this time. 05:15 Appears to be sleeping. Safety Checks: Personal items have been removed The door is fv open or patient has been placed in a hallway bed/chair. There are no family/friend visitors at this time. 05:30 Safety Checks: Personal items have been removed The door is open or patient has been fv placed in a hallway bed/chair. There are no family/friend visitors at this time. 05:45 Safety Checks: Personal items have been removed The door is open or patient has been fv placed in a hallway bed/chair. There are no family/friend visitors at this time. 06:00 Safety Checks: Personal items have been removed The door is open or patient has been fv placed in a hallway bed/chair. There are no family/friend visitors at this time. 06:10 Report given to Elana. fv 06:15 Safety Checks: Personal items have been removed The door is open or patient has been ea placed in a hallway bed/chair. There are no family/friend visitors at this time Pt resting with eyes closed, respirations even and unlabored, chest expansions even and symmetrical. No s/s of pain or discomfort noted at this time. 06:30 Safety Checks: Personal items have been removed The door is open or patient has been ea placed in a hallway bed/chair. There are no family/friend visitors at this time. 06:45 Safety Checks: Personal items have been removed The door is open or patient has been ea placed in a hallway bed/chair. There are no family/friend visitors at this time. 07:00 Safety Checks: Personal items have been removed The door is open or patient has been ea placed in a hallway bed/chair. There are no family/friend visitors at this time. 07:00 Akilah Camacho, RN is Primary Nurse. rb1 07:00 Safety Checks: Personal items have been removed The door is open or patient has been rb1 placed in a hallway bed/chair. There are no family/friend visitors at this time. 07:15 Safety Checks: Personal items have been removed The door is open or patient has been rb1 placed in a hallway bed/chair. There are no family/friend visitors at this time. 07:20 called [facility] to check on bed status of the transfer, per intake eb the patients will be on a wait list until potential discharges tomorrow. 07:30 Safety Checks: Personal items have been removed The door is open or patient has been rb1 placed in a hallway bed/chair. There are no family/friend visitors at this time. 07:45 Safety Checks: Personal items have been removed The door is open or patient has been rb1 placed in a hallway bed/chair. There are no family/friend visitors at this time. 07:57 Safety checks: Items removed: yes. Door open/sign placed on door: yes. Family/friend tt1 present: no. 08:00 Safety Checks: Personal items have been removed The door is open or patient has been rb1 placed in a hallway bed/chair. There are no family/friend visitors at this time. 08:15 Safety Checks: Personal items have been removed The door is open or patient has been rb1 placed in a hallway bed/chair. There are no family/friend visitors at this time. 08:30 Safety Checks: Personal items have been removed The door is open or patient has been rb1 placed in a hallway bed/chair. There are no family/friend visitors at this time. 08:32 Safety checks: Items removed: yes. Door open/sign placed on door: yes. Family/friend tt1 present: no. 08:45 Safety Checks: Personal items have been removed The door is open or patient has been rb1 placed in a hallway bed/chair. There are no family/friend visitors at this time. 09:00 Safety Checks: Personal items have been removed The door is open or patient has been rb1 placed in a hallway bed/chair. There are no family/friend visitors at this time. 09:15 Safety Checks: Personal items have been removed The door is open or patient has been rb1 placed in a hallway bed/chair. There are no family/friend visitors at this time. 09:30 Safety Checks: Personal items have been removed The door is open or patient has been rb1 placed in a hallway bed/chair. There are no family/friend visitors at this time. 09:45 Safety Checks: Personal items have been removed The door is open or patient has been rb1 placed in a hallway bed/chair. There are no family/friend visitors at this time. 10:00 Safety Checks: Personal items have been removed The door is open or patient has been rb1 placed in a hallway bed/chair. There are no family/friend visitors at this time. 10:15 Safety Checks: Personal items have been removed The door is open or patient has been rb1 placed in a hallway bed/chair. There are no family/friend visitors at this time. 10:30 Safety Checks: Personal items have been removed The door is open or patient has been rb1 placed in a hallway bed/chair. There are no family/friend visitors at this time. 10:45 Safety Checks: Personal items have been removed The door is open or patient has been rb1 placed in a hallway bed/chair. There are no family/friend visitors at this time. 11:00 Safety Checks: Personal items have been removed The door is open or patient has been rb1 placed in a hallway bed/chair. There are no family/friend visitors at this time. 11:15 Safety Checks: Personal items have been removed The door is open or patient has been rb1 placed in a hallway bed/chair. There are no family/friend visitors at this time. 11:30 Safety Checks: Personal items have been removed The door is open or patient has been rb1 placed in a hallway bed/chair. There are no family/friend visitors at this time. 11:45 Safety Checks: Personal items have been removed The door is open or patient has been rb1 placed in a hallway bed/chair. There are no family/friend visitors at this time. 12:00 Safety Checks: Personal items have been removed The door is open or patient has been rb1 placed in a hallway bed/chair. There are no family/friend visitors at this time. 12:15 Safety Checks: Personal items have been removed The door is open or patient has been rb1 placed in a hallway bed/chair. There are no family/friend visitors at this time. 12:30 Safety Checks: Personal items have been removed The door is open or patient has been rb1 placed in a hallway bed/chair. There are no family/friend visitors at this time. 12:45 Safety Checks: Personal items have been removed The door is open or patient has been rb1 placed in a hallway bed/chair. There are no family/friend visitors at this time. 13:00 Safety Checks: Personal items have been removed The door is open or patient has been rb1 placed in a hallway bed/chair. There are no family/friend visitors at this time. 13:15 Safety Checks: Personal items have been removed The door is open or patient has been rb1 placed in a hallway bed/chair. There are no family/friend visitors at this time. 13:30 Safety Checks: Personal items have been removed The door is open or patient has been rb1 placed in a hallway bed/chair. There are no family/friend visitors at this time. 13:45 Safety Checks: Personal items have been removed The door is open or patient has been rb1 placed in a hallway bed/chair. There are no family/friend visitors at this time. 14:00 Safety Checks: Personal items have been removed The door is open or patient has been rb1 placed in a hallway bed/chair. There are no family/friend visitors at this time. 14:15 Safety Checks: Personal items have been removed The door is open or patient has been rb1 placed in a hallway bed/chair. There are no family/friend visitors at this time. 14:30 Safety Checks: Personal items have been removed The door is open or patient has been rb1 placed in a hallway bed/chair. There are no family/friend visitors at this time. 14:45 Safety Checks: Personal items have been removed The door is open or patient has been rb1 placed in a hallway bed/chair. There are no family/friend visitors at this time. 15:00 Safety Checks: Personal items have been removed The door is open or patient has been rb1 placed in a hallway bed/chair. There are no family/friend visitors at this time. Administered Medications: 12/01 15:45 Drug: hydrOXYzine 25 mg Route: PO; jl7 20:36 Follow up: Patient sleeping not in any distress 15:45 Drug: Nicotine 21 mg/24 hr 1 patches {Note: placed on left deltoid per pt request.} jl7 Route: Transdermal; Site: affected area; Intake: Outcome: 11/30 15:57 ER care complete, transfer ordered by MD. pm1 12/02 14:52 Discharge ordered by MD. pm1 15:05 Patient left the ED. rb1 15:05 Discharged to home ambulatory, with friend. rb1 15:05 Condition: stable 15:05 Discharge instructions given to patient, Instructed on discharge instructions, follow up and referral plans. Demonstrated understanding of instructions, follow-up care, Prescriptions given X none Signatures: Monisha Matute, TEST ENGINE OPERATOR-C TEST ENGINE OPERATOR-Ckb Katie Patel RN RN iw Elidia cavazos, laundry routeman EKG Tat1 Eliana Li Amber, RN RN Adrianne Disla RN RN fv Thymes, Tracy tt1 Akilah Camacho RN RN rb1 Marily Workman RN RN lk1 Nader Reilly, COMMISSION ASSOCIATE COMMISSION ASSOCIATE pm1 Best Rudd Maria mh5 Ora Sales RN RN jl7 Elana Patel RN RN ea Davies, Jonathon, RN RN jd3 Reaves, Karey, RN RN kr2 Sisi Crump Maria 6 Corrections: (The following items were deleted from the chart) 12/01 19:16 19:08 Safety checks: Items removed: yes. Door open/sign placed on door: no. oe Family/friend present: no. oe 19:18 19:08 Safety checks: Items removed: yes. Door open/sign placed on door: yes. oe Family/friend present: no. oe 21:05 20:27 Safety Checks: Personal items have been removed The door is open or patient has fv been placed in a hallway bed/chair. There are no family/friend visitors at this time mh6 22:54 20:03 Sitter at bedside. fv fv 12/02 01:14 12/01 23:06 Patient awake at this time snacks given fv fv 12/02 01:16 05 23:06 Patient awake at this time snacks given fv fv 12/02 01:24 00:45 Safety Checks: Personal items have been removed The door is open or patient has fv been placed in a hallway bed/chair. There are no family/friend visitors at this time fv 02:46 02:42 Appears to be sleeping. fv fv 02:46 02:43 Safety Checks: Personal items have been removed The door is open or patient has fv been placed in a hallway bed/chair. Items have not been removed fv 02:46 02:00 Appears to be sleeping. fv fv 08:29 08:27 Akilah Camacho, RN is Primary Nurse. rb1 rb1 11:59 11:45 Safety Checks: Personal items have been removed The door is open or patient has rb1 been placed in a hallway bed/chair. There are no family/friend visitors at this time rb1
--- NOTE | 2017-11-30 17:41 | EKG ---
Test Date: 2017-11-30 Test Time: 14:07:41 Patient Transport Orderly: KAPIL MEASUREMENT RESULTS: Intervals: Rate: 77 NH: 148 QRSD: 92 QT: 356 QTc: 402 [place]: P: 70 NH: 148 QRS: 82 T: 71 INTERPRETIVE STATEMENTS: Normal sinus rhythm Normal ECG Compared to ECG 02/07/2017 04:54:39 Sinus arrhythmia no longer present Incomplete right bundle-branch block no longer present Prolonged QT interval no longer present Electronically Signed On 11-30-17 17:40:20 CDT by Monty Haynes
[2017-12-01] MEDS ORDERED: NICOTINE 21 MG/PAT TD ONE (15:42)
[2017-12-01] MEDS ORDERED: hydrOXYzine HCl 25 MG TAB ONE (15:42)
== END 2017-12-02 15:05 | disposition home or self-care (01) ==
LOC: ER 13:38
DX: F43.0 Acute stress reaction (principal); F32.9 Major depressive disorder, single episode, unspecified
CPT/HCPCS: 36415; 80048; 80076; 80307; 80320; 80329; 81003; 85025; 85610; 85730; 93005; 99285

== ENCOUNTER 2018-03-02 17:29 | Emergency (ER) | payer SELFPAY ==
--- OUTSIDE RECORDS SUMMARY | 2018-03-02 17:32 | XMS REPORT | Clinical Summary ---
:1990 Author Organization [facility] Address [address] [place] [address] Phone Care Team Providers Name Role Phone Unavailable Primary Care Provider Unavailable Allergies No Known Allergies Current Medications Prescription Sig. Disp. Refills Start Date End Date Status QUEtiapine (SEROQUEL) Take 1 tablet 30 tablet 0 02/14/2017 03/16/2017 100 MG tablet (100 mg total) by mouth nightly for 30 days. Active Problems Problem Noted Date Thrombophlebitis arm 02/12/2017 Acute hypoxemic respiratory failure (HCC) 02/12/2017 Methamphetamine use 02/12/2017 Anoxic encephalopathy (HCC) 02/08/2017 Social History Tobacco Use Types Packs/Day Years Used Date Never Assessed Sex Assigned at Date Recorded Not on file Last Filed Vital Signs Not on file Plan of Treatment Not on file Results RHYTHM STRIP - SCAN (05/02/2017 7:40 AM)EKG-SCANNED (04/06/2017 8:11 PM)after 03/01/2017
--- OUTSIDE RECORDS SUMMARY | 2018-03-02 17:32 | XMS REPORT | Clinical Summary ---
:1990 Author Organization [facility] Address [address] [place] [address] Care Team Providers Name Role Phone Asked, No Pcp Primary Care Provider Unavailable Allergies No Known Allergies Current Medications Prescription Sig. Disp. Refills Start Date End Date Status divalproex Take 1,000 mg 01/10/2018 Discontinued (DEPAKOTE) 500 MG by mouth 24 hr tablet daily. divalproex Take 800 mg by 01/10/2018 Discontinued (DEPAKOTE) 500 MG mouth nightly. 24 hr tablet QUEtiapine Take 400 mg by 01/10/2018 Discontinued (SEROquel) 200 MG mouth nightly. tablet QUEtiapine Take 250 mg by 01/10/2018 Discontinued (SEROquel) 100 MG mouth every tablet morning. hydrOXYzine Take 50 mg by 01/10/2018 Discontinued (ATARAX) 25 MG mouth 3 tablet (three) times a day as needed for anxiety. divalproex Take 2 tablets 60 tablet 0 01/09/2018 02/08/2018 (DEPAKOTE) 500 MG (1,000 mg EC total) by tabletIndications: mouth nightly Lillian associated for 30 days. with Bipolar Disorder divalproex Take 1 tablet 30 tablet 0 01/10/2018 02/09/2018 (DEPAKOTE) 500 MG (500 mg total) EC by mouth daily tabletIndications: for 30 days. Lillian associated with Bipolar Disorder hydrOXYzine Take 1 tablet 30 tablet 0 01/09/2018 02/08/2018 (ATARAX) 50 MG (50 mg total) tabletIndications: by mouth 3 Anxiety (three) times a day as needed for anxiety (mild anxiety) for up to 30 days. QUEtiapine Take 2 tablets 60 tablet 0 01/09/2018 02/08/2018 (SEROquel) 300 MG (600 mg total) tabletIndications: by mouth Lillian associated nightly for 30 with Bipolar days. Disorder traZODone (DESYREL) Take 1 tablet 30 tablet 0 01/09/2018 02/08/2018 100 MG (100 mg total) tabletIndications: by mouth insomnia associated nightly for 30 with depression days. nicotine (NICODERM Place 1 patch 30 patch 0 01/09/2018 02/08/2018 CQ) 21 mg/24 on the skin hrIndications: daily as Smoking Cessation needed (craving for nicotine) for up to 30 days. Active Problems Problem Noted Date Suicidal ideation 01/01/2018 Encounters Date Type Specialty Care Team Description 01/10/2018 - Emergency Emergency Medicine Dominguez, Homeless (Primary 01/11/2018 MD Abdelrahman Dx) 01/01/2018 - Hospital Encounter Psychiatry Gregg Dickerson 01/10/2018 MD Dangelo Rosalse James N., MD after 03/01/2017 Family History Medical History Relation Name Comments Depression Maternal Grandfather Relation Name Status Comments Maternal Grandfather Social History Tobacco Use Types Packs/Day Years Used Date Current Every Day Smoker Cigarettes 1 15 Smokeless Tobacco: Never Used Tobacco Cessation: Ready to Quit: No; Counseling Given: Yes Alcohol Use Drinks/Week oz/Week Comments No "I don't drink alcohol" Sex Assigned at Date Recorded Not on file Last Filed Vital Signs Vital Sign Reading Time Taken Blood Pressure 117/58 01/11/2018 9:00 AM CDT Pulse 80 01/11/2018 9:00 AM CDT Temperature 36.7 C (98.1 F) 01/10/2018 6:26 PM CDT Respiratory Rate 18 01/11/2018 9:00 AM CDT Oxygen Saturation 93% 01/11/2018 9:00 AM CDT Inhaled Oxygen Concentration - - Weight 90.7 kg (200 lb) 01/10/2018 6:24 PM CDT Height 172.7 cm (5' 8") 01/10/2018 6:24 PM CDT Body Mass Index 30.41 01/10/2018 6:24 PM CDT Plan of Treatment Not on file Procedures Procedure Name Priority Date/Time Associated Comments Diagnosis VALPROIC ACID LEVEL Routine 01/10/2018 6:00 Results for this AM CDT procedure are in the results section. VALPROIC ACID LEVEL Routine 01/05/2018 6:00 Results for this AM CDT procedure are in the results section. VALPROIC ACID LEVEL Routine 01/04/2018 6:00 Results for this AM CDT procedure are in the results section. ESTIMATED GFR Routine 01/01/2018 8:12 Results for this PM CDT procedure are in the results section. HEMOGLOBIN A1C Routine 01/01/2018 8:12 Results for this PM CDT procedure are in the results section. LIPID PANEL Routine 01/01/2018 8:12 Results for this PM CDT procedure are in the results section. COMPREHENSIVE Routine 01/01/2018 8:12 Results for this METABOLIC PANEL PM CDT procedure are in the results section. HC COMPLETE BLD COUNT Routine 01/01/2018 8:12 Results for this W/AUTO DIFF PM CDT procedure are in the results section. ECG 12-LEAD STAT 01/01/2018 8:51 Results for this AM CDT procedure are in the results section. after 03/01/2017 Results Valproic acid level (01/10/2018 6:00 AM)Only the most recent of3 resultswithin the time period is included. Valproic acid 69.9 50.0 - 100.0 ug/mL [facility] DEPART[facility] OF PATHOLOGY AND Comment: GENOMIC MEDICINE Therapeutic Range: 50 - 100 ug/mL Specimen Plasma specimen Performing Organization Address City/[facility] Hospital[facility] Phone Number [facility] OF PATHOLOGY AND [address] [place] [address] GENOMIC MEDICINE Estimated GFR (01/01/2018 8:12 PM) GFR Non Af Amer 79 mL/min/1.[address] [facility] DE[facility] OF PATHOLOGY AND GENOMIC MEDICINE GFR Af Amer >90 mL/min/1.[address] [facility]PART[facility] OF Comment: PATHOLOGY AND GENOMIC Chronic kidney disease: <60 mL/min/1.73m2 MEDICINE Kidney failure: <15 mL/min/1.73m2 The estimated GFR is calculated from the IDMS-traceable Modification of Diet in Renal Disease Equation. The accuracy of the calculation is poor when the creatinine is normal. Calculated values >90 mL/min/1.73m2 are not reported. This equation has not been validated in children (<18 years), women, the elderly (>70 years), or ethnic groups other than Caucasians and Americans. Specimen Plasma specimen Performing Organization Address City/State/Zipcode Phone Number [facility] DEPARTMENT OF PATHOLOGY AND [address] [place] [address] [facility] CBC with platelet and differential (01/01/2018 8:12 PM) WBC 7.53 4.50 - 11.00 k/uL [facility] DEPART[facility] OF PATHOLOGY AND GENOMIC MEDICINE RBC 4.71 4.40 - 6.00 m/uL [facility] OF PATHOLOGY AND GENOMIC MEDICINE HGB 14.7 14.0 - 18.0 g/dL [facility] OF PATHOLOGY AND GENOMIC MEDICINE HCT 42.2 41.0 - 51.0 % [facility] OF PATHOLOGY AND GENOMIC MEDICINE MCV 89.6 82.0 - 100.[address] [facility] OF PATHOLOGY AND GENOMIC MEDICINE MCH 31.2 27.0 - 34.[address] [facility] DE[facility] OF PATHOLOGY AND GENOMIC MEDICINE MCHC 34.8 31.0 - 37.0 g/dL [facility] OF PATHOLOGY AND GENOMIC MEDICINE RDW - SD 39.1 37.0 - 55.[address] [facility] OF PATHOLOGY AND GENOMIC MEDICINE MPV 9.9 8.8 - 13.[address] [facility] OF PATHOLOGY AND GENOMIC MEDICINE Platelet count 232 150 - 400 k/uL [facility] OF PATHOLOGY AND GENOMIC MEDICINE Nucleated RBC 0.00 /[address] [facility] OF PATHOLOGY AND GENOMIC MEDICINE Neutrophils 45.8 39.0 - 69.0 % [facility] OF PATHOLOGY AND GENOMIC MEDICINE Lymphocytes 43.0 25.0 - 45.0 % [facility] OF PATHOLOGY AND GENOMIC MEDICINE Monocytes 7.7 0.0 - 10.0 % [facility] OF PATHOLOGY AND GENOMIC MEDICINE Eosinophils 2.3 0.0 - 5.0 % [facility] OF PATHOLOGY AND GENOMIC MEDICINE Basophils 0.8 0.0 - 1.0 % [facility] OF PATHOLOGY AND GENOMIC MEDICINE Immature granulocytes 0.4Comment: 0.0 - 1.0 % [facility] DEPART[facility] OF "Immature PATHOLOGY AND GENOMIC granulocytes" MEDICINE (promyelocytes, myelocytes, metamyelocytes) Specimen Blood Performing Organization Address City/State/Zipcode Phone Number [facility] DEPARTMENT OF PATHOLOGY AND [address] [place] [address] [employer] [facility] Hemoglobin A1c (01/01/2018 8:12 PM) Hemoglobin A1C 5.2 4.0 - 5.6 % [facility] DEPARTMENT OF PATHOLOGY Comment: AND GENOMIC MEDICINE HbA1c cutoffs for diagnosing diabetes: 4.0% - 5.6%=normal 5.7% - 6.4%=increased risk for diabetes (prediabetes) >=6.5%=diabetes Goals for glycemic control (ADA 2016) < 7.0%Target for non adults with diabetes. More or less stringent targets may be appropriate for individual patients. <7.5% Target for Children and adolescents with type 1 diabetes. Specimen Blood Performing Organization Address [facility] Hospitalcode Phone Number [facility] DEPARTMENT OF PATHOLOGY AND [address] [place] [id number] [employer] MEDICINE Lipid panel (01/01/2018 8:12 PM) Cholesterol 144 <200 mg/dL [facility] DEPART[facility] OF PATHOLOGY AND GENOMIC MEDICINE Triglycerides 250 (H) <150 mg/dL [facility] OF PATHOLOGY AND GENOMIC MEDICINE HDL cholesterol 34 (L) >40 mg/dL [facility] OF PATHOLOGY AND GENOMIC MEDICINE LDL cholesterol 84Comment: Result <100 mg/dL [facility] DE[facility] OF obtained by direct LDL PATHOLOGY AND GENOMIC measurement MEDICINE Lipid panel interpretation SeeBelow [facility] OF Comment: PATHOLOGY AND GENOMIC Total Cholesterol (mg/dL) MEDICINE <200 Desirable [id number] >=240High Triglycerides (mg/dL) <150 Normal [id number] 200-499High >=500Very high HDL Cholesterol (mg/dL) <40Low (male) <40Low (female) LDL Cholesterol (mg/dL) <100 Optimal 100-129Near or above optimal [id number] 160-189High >=190Very high Risk Catergories that modify LDL goals. Risk CatergoriesLDL goal (mg/dL) CHD and CHD risk equivalent<100 (10-year risk >20%) Multiple (2+) risk factors <130 (10-year risk=<20%) 0-1 risk factors <160 (<10-year risk) Defining levels of lipids in metabolic syndrome Triglycerides>=150 mg/dL HDL Cholesterol Men<40 mg/dL Women<40 mg/dL Non-HDL cholesterol is a second target for therapy in persons with high triglycerides (>=200 mg/dL) Specimen Plasma specimen Performing Organization Address City/State/Zipcode Phone Number [facility] DEPARTMENT OF PATHOLOGY AND [address] [place] [address] [facility] [employer] Comprehensive metabolic panel (01/01/2018 8:12 PM) Sodium 142 135 - 148 mEq/L [facility] DEPARTMENT OF PATHOLOGY AND GENOMIC MEDICINE Potassium 4.2 3.5 - 5.0 mEq/L [facility] DEPART[facility] OF PATHOLOGY AND GENOMIC MEDICINE Chloride 101 98 - 112 mEq/L [facility] DE[facility] OF PATHOLOGY AND GENOMIC MEDICINE CO2 24 24 - 31 mEq/L [facility] OF PATHOLOGY AND GENOMIC MEDICINE Anion gap 17@ANIO (H) 7 - 15 mEq/L [facility] DEPART[facility] OF PATHOLOGY AND GENOMIC MEDICINE BUN 15 6 - 20 mg/dL [facility] OF PATHOLOGY AND GENOMIC MEDICINE Creatinine 1.1 0.7 - 1.2 mg/dL [facility] DE[facility] OF PATHOLOGY AND GENOMIC MEDICINE Glucose 103 (H) 65 - 99 mg/dL [facility] OF PATHOLOGY AND GENOMIC MEDICINE Calcium 9.3 8.3 - 10.2 mg/dL [facility] DE[facility] OF PATHOLOGY AND GENOMIC MEDICINE Protein 6.9 6.3 - 8.3 g/dL [facility] DEPART[facility] OF Comment: PATHOLOGY AND GENOMIC 4.6-7.0 g/dL MEDICINE 1 week 4.4-7.6 g/dL 7 months-1year5.1-7.3 g/dL 1-2 years5.6-7.5 g/dL >3 years6.0-8.0 g/dL 18-150 6.3-8.3 g/dL Albumin 3.5 3.5 - 5.0 g/dL [facility] DEPART[facility] OF PATHOLOGY AND GENOMIC MEDICINE A/G ratio 1.0 0.7 - 3.8 [facility] OF PATHOLOGY AND GENOMIC MEDICINE Alkaline phosphatase 90 40 - 129 U/L [facility] OF PATHOLOGY AND GENOMIC MEDICINE AST 13 10 - 50 U/L [facility] DEPART[facility] OF PATHOLOGY AND GENOMIC MEDICINE ALT 21 5 - 50 U/L [facility] DEPARTMENT OF PATHOLOGY AND GENOMIC MEDICINE Total bilirubin <0.2 0.0 - 1.2 mg/dL [facility] DEPART[facility] OF PATHOLOGY AND GENOMIC MEDICINE Specimen Plasma specimen Performing Organization Address City/State/Zipcode Phone Number [facility] DEPARTMENT OF PATHOLOGY AND [address] [place] [address] [facility] MEDICINE ECG 12 lead (01/01/2018 8:51 AM) Ventricular rate 66 [facility] Atrial rate 66 [facility] WA interval 148 [facility] QRSD interval 102 [facility] QT interval 382 [facility] QTC interval 400 [facility] P axis 1 55 [facility] QRS axis 1 68 [facility] T wave axis 57 [facility] MUSE EKG impression Normal sinus rhythm-Normal ECG-No previous [facility] ECGs available- Performing Organization Address City/State/Zipcode Phone Number [facility] [address] [place] [address] after 03/01/2017 Insurance Payer Benefit Plan / Group Subscriber ID Type Phone Address PENDING MEDICAID PENDING DISABILITY MEDICAID xxxxxxxxx Medicaid COVERAGE Home: [id number] [facility] [phone] [place] [id number]
--- OUTSIDE RECORDS SUMMARY | 2018-03-02 17:33 | XMS REPORT ---
:1990 [facility] [address] [place] [address] Care Team Providers Name Role Phone UNKNOWN, REFFERING Primary Care Provider Unavailable JUJU HOLDEN M.D. Unavailable Unavailable HIMA VILLELA Unavailable Unavailable Problems This patient has no known problems. Allergies, Adverse Reactions, Alerts This patient has no known allergies or adverse reactions. Medications This patient has no known medications. Encounters Start End Encounter Admission Attending Care Care Encounter Date/Time Date/Time Type Type Clinicians Facility Department ID 2015-12-01 Inpatient E [facility] [id number] 04:15:00 2017-10-09 2017-10-17 Inpatient E [facility] [id number] 18:48:00 13:28:00 [facility] Results Test Description Test Time Test Comments Text Results Atomic Results Result Comments RPR, Qual 2017-10-10 20:48:00 Test Item Value Reference Range Comments RPR (test code=RPR) Non-Reactive Non-Reactive Thyroid Stimulating Hormone (TSH)2017-10-10 09:47:00 Test Item Value Reference Range Comments TSH (test code=TSH) 1.78 mIU/mL 0.270-4.200 Lipid [id number] 09:39:00 Test Item Value Reference Range Comments Cholesterol (test 145 mg/dL 0-200 code=CHOL) Triglycerides (test 110 mg/dL 9-200 code=TRIG) HDL (test code=HDL) 46 mg/dL 40-60 Chol/HDL (test 3.2 Ratio 0.0-5.0 code=CHOLPHDL) LDL, Calculated (test 77 0-130 (NOTE)RISK OF HEART code=LDLC) DISEASEPublished by [place]od[place] Heart AssociationAnalyte Optimal Boderline Increased RiskCHOL <200 200-239 >240TRIG <150 150-199 >200HDL Male: >60 <40HDL Female: >60 <50LDL <100 130-159 >160LDL NEAR OPTIMAL IS 100-129 VLDL (test code=VLDL) 22 mg/dL 5-40 LDL/HDL (test code=LDLPHDL) 2 Alcohol/Ethanol, [id number] 19:40:00 Test Item Value Reference Range Comments Alcohol, Ethyl (test <0.01 g/dL 0.00-0.01 Intoxicated 0.080 g/dL or code=ETOH) more Comprehensive Metabolic [id number] 12:38:00 Test Item Value Reference Range Comments Sodium (test code=NA) 140 mmol/L 135-145 Potassium (test code=K) 4.7 mmol/L 3.5-5.1 Chloride (test code=CL) 99 mmol/L 98-105 Carbon Dioxide (test 26 mmol/L 22-29 code=CO2) Glucose (test code=GLU) 91 mg/dL 70-115 Blood Urea Nitrogen 7 mg/dL 6-20 (test code=BUN) Creatinine (test 0.7 mg/dL 0.7-1.2 code=CREAT) Calcium (test code=CA) 9.6 mg/dL 8.3-10.5 Prot Total (test 7.9 g/dL 6.4-8.3 code=TP) Albumin (test code=ALB) 4.7 g/dL 3.5-5.2 A/G Ratio (test 1.5 Ratio code=AGRATIO) Globulin (test 3.2 2.9-3.1 code=GLOB) Bili Total (test 0.2 mg/dL 0.1-0.9 code=TBIL) Alk Phos (test 115 U/L 40-129 code=APHOS) AST (test code=AST) 13 U/L 1-40 ALT (test code=ALT) 14 U/L 1-41 BUN/Creatinine Ratio 10.0 (test code=BCRATIO) Anion Gap (test 15 mmol/L 7-16 code=AGAP) Estimated GFR (test >60 mL/min/1.73m2 eGFR (estimated Glomerular code=GFR) Filtration Rate) is an estimated value,calculated from the patient's serum creatinine using the MDRD equation.It is NOT the patient's actual GFR. The eGFR provides a more clinicallyuseful measure of kidney disease than serum creatinine alone.This calculation takes sex and race into account, if the informationis provided. If the race is not provided, and the patient isAfrican-Camb[place]ian, multiply by 1.212. If sex is not provided, and thepatient is female, multiply by 0.742. Results for patients <18 years ofage have not been validated by the MDRD study and should be interpretedwith caution.eGFR Result Interpretation:eGFR > or=60 is in the Normal RangeeGFR < 60 may mean kidney diseaseeGFR < 15 may mean kidney failureRanges recommended by the National Kidney Foundation,http://nkdep.nih .gov CBC with [id number] 12:12:00 Test Item Value Reference Range Comments WBC (test code=WBC) 9.3 K/cumm 4.4-10.5 RBC (test code=RBC) 5.15 M/cumm 4.10-5.70 Hemoglobin (test code=HGB) 15.7 gm/dL 13.4-17.4 Hematocrit (test code=HCT) 49.2 % 38.7-52.0 MCV (test code=MCV) 95.6 fL 80-100 MCH (test code=MCH) 30.5 pg 27.0-32.5 MCHC (test code=MCHC) 31.9 g/dL 32.0-37.5 RDW (test code=RDW) 13.0 % 11.5-14.5 Platelet Count (test code=PLTCT) 307 K/cumm 140-440 MPV (test code=MPV) 9.2 fL Diff Method (test code=DIFFM) Auto Neutrophil (test code=NEUT) 68.8 % 36-70 Lymphocyte (test code=LYMPH) 24.9 % 12-44 Monocyte (test code=MONO) 3.7 % 0-11 Eosinophil (test code=EOS) 2.2 % 0-7 Basophil (test code=BASO) 0.5 % 0-2 Neutro Abs (test code=ANEUT) 6.4 K/cumm 1.6-7.4 Lymph Abs (test code=ALYMPH) 2.3 K/cumm 0.5-4.6 [place] Abs (test code=AMONO) 0.3 K/cumm 0.0-1.2 Eos Abs (test code=AEOS) 0.20 K/cumm 0.00-0.74 Baso Abs (test code=ABASO) 0.0 K/cumm 0.00-0.21 [id number] 12:12:00 Test Item Value Reference Range Comments Amphetamine (test code=AMPH) POSITIVE Negative For diagnostic purposes only, positive results should always be assessedin conjunctionwith the patient's medical history,clinical examination and otherfindings.To fulfill legal requirements, a more specific alternate chemical methodmust be used inorder to obtain a Confirmed analytical result. GC/MS is the preferred confirmatory method. Barbiturates (test code=NASIR) Negative Negative Benzodiazepine (test Negative Negative code=EVETTE) Cocaine (test code=COCA) Negative Negative Methadone (test code=MTHD) Negative Negative Opiates (test code=OPIA) Negative Negative PCP (test code=PCP) Negative Negative Propoxyphene (test Negative Negative code=PROPOX) THC (test code=THC) POSITIVE Negative Urinalysis [id number] 11:46:00 Test Item Value Reference Range Comments Color (test code=COLOR) Yellow Yellow,Straw,Pl yellow Clarity (test code=CLAR) Clear Clear Specific [place] (test code=SPGR) 1.020 1.001-1.035 pH (test code=PH) 6.5 5.0-9.0 Ketone (test code=KET) Negative mg/dL Negative Glucose (test code=GLUCUR) Negative mg/dL Negative Protein (test code=PROT) Negative mg/dL Negative Bilirubin (test code=BILI) Negative mg/dL Negative Occult Blood (test code=UDOB) Negative Negative Urobilinogen (test code=UROB) 0.2 mg/dL 0.2-1.0 Nitrite (test code=NIT) Negative Negative Leuk Esterase (test code=LEUK) Negative Negative Micros Exam (test code=MEXAM) Not indicated TOXICOLOGY SCREEN, [id number] 06:39:00 Test Item Value Reference Range Comments SCAN RESULT (test ycuo=[id number]) SPUTUM CULTURE + GRAM [id number] 09:47:00 Test Item Value Reference Range Comments CULTURE (BEAKER) (test STREPTOCOCCUS 4+ Streptococcus hjqg=1928) PNEUMONIAE pneumoniae Amoxicillin + Susceptible 0-2 , Clavulanate (test Resistant <0 or >2 code=21) Ceftriaxone (test Susceptible 0-1 , code=52) Intermediate <0 or >1 , Resistant >2 Clindamycin (test Susceptible 0-0.25 , code=10) Resistant <0 or >.25 Erythromycin (test Susceptible 0-0.25 , code=4) Resistant <0 or >.25 Levofloxacin (test Susceptible 0-2 , code=22) Resistant <0 or >2 Penicillin G (test Susceptible 0-0.06 , code=3) Intermediate <0 or >.06 , Resistant >1 Trimethoprim + Susceptible 0-0.5 , Sulfamethoxazole (test Resistant <0 or >.5 code=47) Vancomycin (test code=13) GRAM STAIN RESULT 2+ WBCs (BEAKER) (test bgps=0534) GRAM STAIN RESULT 0-5 epithelial cells (BEAKER) (test fhyj=148275) GRAM STAIN RESULT 2+ gram negative rods (BEAKER) (test pxeu=008414) GRAM STAIN RESULT 2+ gram positive (BEAKER) (test cocci in pairs qgsy=725283) GRAM STAIN RESULT 2+ gram variable (BEAKER) (test coccobacilli czey=977351) 4+ Normal respiratory [facility] [id number] 06:45:00 Test Item Value Reference Range Comments SODIUM (BEAKER) (test 138 meq/L 136-145 qzlg=933) POTASSIUM (BEAKER) (test 3.9 meq/L 3.5-5.1 agbv=313) CHLORIDE (BEAKER) (test 104 meq/L 98-107 aurh=943) CO2 (BEAKER) (test 22 meq/L 22-29 xnrv=875) BLOOD UREA NITROGEN 12 mg/dL 7-21 (BEAKER) (test brrw=373) CREATININE (BEAKER) (test 0.71 mg/dL 0.57-1.25 gtet=535) GLUCOSE RANDOM (BEAKER) 88 mg/dL 70-105 (test xgrw=991) CALCIUM (BEAKER) (test 9.2 mg/dL 8.4-10.2 rykh=782) EGFR (BEAKER) (test 132 mL/min/1.73 sq m ESTIMATED GFR IS NOT vech=2391) ACCURATE CREATININE CLEARANCE IN PREDICTING GLOMERULAR FILTRATION RATE. ESTIMATED GFR IS NOT APPLICABLE FOR DIALYSIS PATIENTS. CBC W/PLT COUNT & AUTO [id number] 06:27:00 Test Item Value Reference Range Comments WHITE BLOOD CELL COUNT (BEAKER) (test urcw=797) 6.6 K/ L 4.0-10.0 RED BLOOD CELL COUNT (BEAKER) (test kikd=482) 4.38 M/ L 4.20-5.80 HEMOGLOBIN (BEAKER) (test vyxv=596) 13.6 GM/DL 13.0-16.8 HEMATOCRIT (BEAKER) (test ikzx=831) 40.3 % 40.0-50.0 MEAN CORPUSCULAR VOLUME (BEAKER) (test btbi=364) 92.1 fL 82.0-98.0 MEAN CORPUSCULAR HEMOGLOBIN (BEAKER) (test 31.1 pg 27.0-33.0 gtda=048) MEAN CORPUSCULAR HEMOGLOBIN CONC (BEAKER) (test 33.8 GM/DL 32.0-36.0 wlcu=447) RED CELL DISTRIBUTION WIDTH (BEAKER) (test 13.6 % 10.3-14.2 zfmb=189) PLATELET COUNT (BEAKER) (test hsus=628) 358 K/CU MM 150-430 MEAN PLATELET VOLUME (BEAKER) (test hmpj=658) 6.7 fL 6.5-10.5 NUCLEATED RED BLOOD CELLS (BEAKER) (test 0 /100 WBC 0-0 mawr=138) NEUTROPHILS RELATIVE PERCENT (BEAKER) (test 51 % judl=892) LYMPHOCYTES RELATIVE PERCENT (BEAKER) (test 36 % xesu=108) MONOCYTES RELATIVE PERCENT (BEAKER) (test 8 % ggoi=119) EOSINOPHILS RELATIVE PERCENT (BEAKER) (test 4 % cigd=626) BASOPHILS RELATIVE PERCENT (BEAKER) (test 1 % mbxl=179) NEUTROPHILS ABSOLUTE COUNT (BEAKER) (test 3.33 K/ L 1.80-8.00 qgbd=431) LYMPHOCYTES ABSOLUTE COUNT (BEAKER) (test 2.33 K/ L 1.48-4.50 lrjx=842) MONOCYTES ABSOLUTE COUNT (BEAKER) (test 0.53 K/ L 0.00-1.30 dsvx=802) EOSINOPHILS ABSOLUTE COUNT (BEAKER) (test 0.29 K/ L 0.00-0.50 pqlm=017) BASOPHILS ABSOLUTE COUNT (BEAKER) (test 0.06 K/ L 0.00-0.20 xlnf=558) 0.00CBC W/PLT COUNT & AUTO [id number] 06:45:00 Test Item Value Reference Range Comments WHITE BLOOD CELL COUNT (BEAKER) (test osrb=598) 6.0 K/ L 4.0-10.0 RED BLOOD CELL COUNT (BEAKER) (test uzwn=092) 4.29 M/ L 4.20-5.80 HEMOGLOBIN (BEAKER) (test osmw=030) 13.4 GM/DL 13.0-16.8 HEMATOCRIT (BEAKER) (test erss=824) 40.1 % 40.0-50.0 MEAN CORPUSCULAR VOLUME (BEAKER) (test lqcd=521) 93.5 fL 82.0-98.0 MEAN CORPUSCULAR HEMOGLOBIN (BEAKER) (test 31.1 pg 27.0-33.0 sjzd=567) MEAN CORPUSCULAR HEMOGLOBIN CONC (BEAKER) (test 33.3 GM/DL 32.0-36.0 njwm=650) RED CELL DISTRIBUTION WIDTH (BEAKER) (test 12.2 % 10.3-14.2 opvf=055) PLATELET COUNT (BEAKER) (test yvru=596) 296 K/CU MM 150-430 MEAN PLATELET VOLUME (BEAKER) (test hpyy=098) 6.6 fL 6.5-10.5 NUCLEATED RED BLOOD CELLS (BEAKER) (test 0 /100 WBC 0-0 nvjb=428) NEUTROPHILS RELATIVE PERCENT (BEAKER) (test 53 % iecz=589) LYMPHOCYTES RELATIVE PERCENT (BEAKER) (test 33 % zvtn=520) MONOCYTES RELATIVE PERCENT (BEAKER) (test 8 % gtjg=681) EOSINOPHILS RELATIVE PERCENT (BEAKER) (test 6 % mjsb=727) BASOPHILS RELATIVE PERCENT (BEAKER) (test 1 % kolj=688) NEUTROPHILS ABSOLUTE COUNT (BEAKER) (test 3.15 K/ L 1.80-8.00 lojj=431) LYMPHOCYTES ABSOLUTE COUNT (BEAKER) (test 1.95 K/ L 1.48-4.50 zkwn=152) MONOCYTES ABSOLUTE COUNT (BEAKER) (test 0.51 K/ L 0.00-1.30 kwww=999) EOSINOPHILS ABSOLUTE COUNT (BEAKER) (test 0.34 K/ L 0.00-0.50 prjo=829) BASOPHILS ABSOLUTE COUNT (BEAKER) (test 0.05 K/ L 0.00-0.20 buup=080) 0.00BASIC METABOLIC [id number] 06:34:00 Test Item Value Reference Range Comments SODIUM (BEAKER) (test 141 meq/L 136-145 mpah=159) POTASSIUM (BEAKER) (test 4.1 meq/L 3.5-5.1 nhaf=564) CHLORIDE (BEAKER) (test 107 meq/L 98-107 cxto=210) CO2 (BEAKER) (test 24 meq/L 22-29 hjov=170) BLOOD UREA NITROGEN 7 mg/dL 7-21 (BEAKER) (test aaff=052) CREATININE (BEAKER) (test 0.67 mg/dL 0.57-1.25 tipr=643) GLUCOSE RANDOM (BEAKER) 92 mg/dL 70-105 (test yvdw=793) CALCIUM (BEAKER) (test 9.5 mg/dL 8.4-10.2 ontk=625) EGFR (BEAKER) (test 141 mL/min/1.73 sq m ESTIMATED GFR IS NOT nhmu=8628) ACCURATE CREATININE CLEARANCE IN PREDICTING GLOMERULAR FILTRATION RATE. ESTIMATED GFR IS NOT APPLICABLE FOR DIALYSIS PATIENTS. CBC W/PLT COUNT & AUTO [id number] 08:13:00 Test Item Value Reference Range Comments WHITE BLOOD CELL COUNT (BEAKER) (test gkoh=292) 5.7 K/ L 4.0-10.0 RED BLOOD CELL COUNT (BEAKER) (test gjgi=272) 4.23 M/ L 4.20-5.80 HEMOGLOBIN (BEAKER) (test cfqv=995) 12.9 GM/DL 13.0-16.8 HEMATOCRIT (BEAKER) (test lcng=840) 39.5 % 40.0-50.0 MEAN CORPUSCULAR VOLUME (BEAKER) (test cegs=449) 93.5 fL 82.0-98.0 MEAN CORPUSCULAR HEMOGLOBIN (BEAKER) (test 30.5 pg 27.0-33.0 ymei=072) MEAN CORPUSCULAR HEMOGLOBIN CONC (BEAKER) (test 32.6 GM/DL 32.0-36.0 frno=151) RED CELL DISTRIBUTION WIDTH (BEAKER) (test 12.1 % 10.3-14.2 fzpb=070) PLATELET COUNT (BEAKER) (test hvdg=429) 269 K/CU MM 150-430 MEAN PLATELET VOLUME (BEAKER) (test jgsp=059) 6.9 fL 6.5-10.5 NUCLEATED RED BLOOD CELLS (BEAKER) (test 0 /100 WBC 0-0 zmbz=832) NEUTROPHILS RELATIVE PERCENT (BEAKER) (test 56 % shfb=694) LYMPHOCYTES RELATIVE PERCENT (BEAKER) (test 31 % dcor=000) MONOCYTES RELATIVE PERCENT (BEAKER) (test 8 % xdus=687) EOSINOPHILS RELATIVE PERCENT (BEAKER) (test 5 % zklz=179) BASOPHILS RELATIVE PERCENT (BEAKER) (test 1 % gdbq=986) NEUTROPHILS ABSOLUTE COUNT (BEAKER) (test 3.18 K/ L 1.80-8.00 faoa=596) LYMPHOCYTES ABSOLUTE COUNT (BEAKER) (test 1.79 K/ L 1.48-4.50 wldo=924) MONOCYTES ABSOLUTE COUNT (BEAKER) (test 0.46 K/ L 0.00-1.30 sfpp=453) EOSINOPHILS ABSOLUTE COUNT (BEAKER) (test 0.26 K/ L 0.00-0.50 nclh=380) BASOPHILS ABSOLUTE COUNT (BEAKER) (test 0.03 K/ L 0.00-0.20 ifjh=838) 0.00BASI METABOLIC [id number] 07:25:00 Test Item Value Reference Range Comments SODIUM (BEAKER) (test 140 meq/L 136-145 wvww=872) POTASSIUM (BEAKER) (test 3.7 meq/L 3.5-5.1 uepx=051) CHLORIDE (BEAKER) (test 107 meq/L 98-107 bjja=779) CO2 (BEAKER) (test 21 meq/L 22-29 kmwr=241) BLOOD UREA NITROGEN 6 mg/dL 7-21 (BEAKER) (test bmkb=597) CREATININE (BEAKER) (test 0.63 mg/dL 0.57-1.25 beac=349) GLUCOSE RANDOM (BEAKER) 95 mg/dL 70-105 (test xjlu=827) CALCIUM (BEAKER) (test 9.3 mg/dL 8.4-10.2 pmid=463) EGFR (BEAKER) (test 152 mL/min/1.73 sq m ESTIMATED GFR IS NOT yupp=5783) ACCURATE CREATININE CLEARANCE IN PREDICTING GLOMERULAR FILTRATION RATE. ESTIMATED GFR IS NOT APPLICABLE FOR DIALYSIS PATIENTS. POCT-GLUCOSE [id number] 09:26:00 Test Item Value Reference Range Comments POC-GLUCOSE METER (BEAKER) 125 mg/dL 70-[address] [facility] [address] (test dckk=2890) [facility] [address] BASIC METABOLIC [id number] 07:05:00 Test Item Value Reference Range Comments SODIUM (BEAKER) (test 143 meq/L 136-145 jfnk=937) POTASSIUM (BEAKER) (test 3.9 meq/L 3.5-5.1 xbsm=206) CHLORIDE (BEAKER) (test 110 meq/L 98-107 qcnu=905) CO2 (BEAKER) (test 23 meq/L 22-29 qeoq=258) BLOOD UREA NITROGEN 3 mg/dL 7-21 (BEAKER) (test mwkt=775) CREATININE (BEAKER) (test 0.68 mg/dL 0.57-1.25 hxbu=063) GLUCOSE RANDOM (BEAKER) 107 mg/dL 70-105 (test ivcu=828) CALCIUM (BEAKER) (test 9.4 mg/dL 8.4-10.2 ygxf=574) EGFR (BEAKER) (test 139 mL/min/1.73 sq m ESTIMATED GFR IS NOT ojzr=6382) ACCURATE CREATININE CLEARANCE IN PREDICTING GLOMERULAR FILTRATION RATE. ESTIMATED GFR IS NOT APPLICABLE FOR DIALYSIS PATIENTS. CBC W/PLT COUNT & AUTO [id number] 06:21:00 Test Item Value Reference Range Comments WHITE BLOOD CELL COUNT (BEAKER) (test ekbn=957) 6.5 K/ L 4.0-10.0 RED BLOOD CELL COUNT (BEAKER) (test iiwd=478) 4.13 M/ L 4.20-5.80 HEMOGLOBIN (BEAKER) (test gbdn=439) 12.7 GM/DL 13.0-16.8 HEMATOCRIT (BEAKER) (test wamw=251) 38.3 % 40.0-50.0 MEAN CORPUSCULAR VOLUME (BEAKER) (test ujdn=199) 92.8 fL 82.0-98.0 MEAN CORPUSCULAR HEMOGLOBIN (BEAKER) (test 30.6 pg 27.0-33.0 frlk=298) MEAN CORPUSCULAR HEMOGLOBIN CONC (BEAKER) (test 33.0 GM/DL 32.0-36.0 ssbp=543) RED CELL DISTRIBUTION WIDTH (BEAKER) (test 12.0 % 10.3-14.2 hken=145) PLATELET COUNT (BEAKER) (test pegd=918) 239 K/CU MM 150-430 MEAN PLATELET VOLUME (BEAKER) (test keoi=784) 6.7 fL 6.5-10.5 NUCLEATED RED BLOOD CELLS (BEAKER) (test 0 /100 WBC 0-0 pdcx=716) NEUTROPHILS RELATIVE PERCENT (BEAKER) (test 65 % cvgi=959) LYMPHOCYTES RELATIVE PERCENT (BEAKER) (test 26 % kysr=416) MONOCYTES RELATIVE PERCENT (BEAKER) (test 6 % bljp=133) EOSINOPHILS RELATIVE PERCENT (BEAKER) (test 3 % sqjt=197) BASOPHILS RELATIVE PERCENT (BEAKER) (test 0 % kurv=888) NEUTROPHILS ABSOLUTE COUNT (BEAKER) (test 4.21 K/ L 1.80-8.00 lgha=976) LYMPHOCYTES ABSOLUTE COUNT (BEAKER) (test 1.67 K/ L 1.48-4.50 bohb=064) MONOCYTES ABSOLUTE COUNT (BEAKER) (test 0.42 K/ L 0.00-1.30 cdtw=572) EOSINOPHILS ABSOLUTE COUNT (BEAKER) (test 0.19 K/ L 0.00-0.50 nxex=507) BASOPHILS ABSOLUTE COUNT (BEAKER) (test 0.02 K/ L 0.00-0.20 hkuy=235) 0.00POCT-GLUCOSE [id number] 00:32:00 Test Item Value Reference Range Comments POC-GLUCOSE METER (BEAKER) 130 mg/dL 70-110 TESTED AT [address] (test sugg=0944) [place] [address] [id number] 19:09:00 Test Item Value Reference Range Comments POTASSIUM (BEAKER) (test ogqn=893) 4.0 meq/L 3.5-5.1 8 hours after PO replacement completedPOCT-GLUCOSE [id number] 18:30:00 Test Item Value Reference Range Comments POC-GLUCOSE METER (BEAKER) 98 mg/dL 70-110 TESTED AT [address] (test qdnq=3192) [place] [id number] POCT-GLUCOSE [id number] 12:24:00 Test Item Value Reference Range Comments POC-GLUCOSE METER (BEAKER) 181 mg/dL 70-[address] [facility] [address] [facility] (test gfhu=3983) [facility] [address] POCT-GLUCOSE [id number] 12:15:00 Test Item Value Reference Range Comments POC-GLUCOSE METER (BEAKER) 87 mg/dL 70-110 TESTED AT [address] (test hkes=7324) [facility] [address] POCT-GLUCOSE [id number] 06:34:00 Test Item Value Reference Range Comments POC-GLUCOSE METER (BEAKER) 88 mg/dL 70-110 TESTED AT [address] (test xijb=2182) [facility] [address] BASIC METABOLIC [id number] 05:55:00 Test Item Value Reference Range Comments SODIUM (BEAKER) (test 140 meq/L 136-145 mtgc=901) POTASSIUM (BEAKER) (test 3.3 meq/L 3.5-5.1 ncnv=698) CHLORIDE (BEAKER) (test 106 meq/L 98-107 hfcw=967) CO2 (BEAKER) (test 26 meq/L 22-29 bulu=995) BLOOD UREA NITROGEN 5 mg/dL 7-21 (BEAKER) (test pote=163) CREATININE (BEAKER) (test 0.60 mg/dL 0.57-1.25 upjt=636) GLUCOSE RANDOM (BEAKER) 90 mg/dL 70-105 (test tefq=084) CALCIUM (BEAKER) (test 8.6 mg/dL 8.4-10.2 cnvr=228) EGFR (BEAKER) (test 160 mL/min/1.73 sq m ESTIMATED GFR IS NOT zacx=0107) ACCURATE CREATININE CLEARANCE IN PREDICTING GLOMERULAR FILTRATION RATE. ESTIMATED GFR IS NOT APPLICABLE FOR DIALYSIS PATIENTS. BLOOD GAS, [id number] 05:41:00 Test Item Value Reference Range Comments PH ARTERIAL (BEAKER) (test xejs=237) 7.42 7.35-7.45 PCO2 ARTERIAL (BEAKER) (test jcpp=535) 43 mmHg 35-45 PO2 ARTERIAL (BEAKER) (test nmpi=659) 168 mmHg 80-90 O2 SATURATION ARTERIAL (BEAKER) (test rbie=786) 99.1 % 96.0-97.0 HCO3 ARTERIAL (BEAKER) (test tuji=483) 27 mmol/L 21-29 BASE EXCESS ARTERIAL (BEAKER) (test bzgn=560) 2.4 mmol/L -2.0-3.0 PATIENT TEMPERATURE (BEAKER) (test ffmf=6984) 37.5 C FIO2 (BEAKER) (test blbf=6566) 50.0 % CBC W/PLT COUNT & AUTO [id number] 05:13:00 Test Item Value Reference Range Comments WHITE BLOOD CELL COUNT (BEAKER) (test msrq=154) 7.4 K/ L 4.0-10.0 RED BLOOD CELL COUNT (BEAKER) (test yxbv=656) 3.32 M/ L 4.20-5.80 HEMOGLOBIN (BEAKER) (test gsvt=426) 10.3 GM/DL 13.0-16.8 HEMATOCRIT (BEAKER) (test evif=427) 30.8 % 40.0-50.0 MEAN CORPUSCULAR VOLUME (BEAKER) (test dkpn=756) 92.8 fL 82.0-98.0 MEAN CORPUSCULAR HEMOGLOBIN (BEAKER) (test 31.1 pg 27.0-33.0 ptnw=142) MEAN CORPUSCULAR HEMOGLOBIN CONC (BEAKER) (test 33.5 GM/DL 32.0-36.0 zkic=293) RED CELL DISTRIBUTION WIDTH (BEAKER) (test 11.9 % 10.3-14.2 xhhg=125) PLATELET COUNT (BEAKER) (test ftbq=007) 182 K/CU MM 150-430 MEAN PLATELET VOLUME (BEAKER) (test wegf=139) 6.8 fL 6.5-10.5 NUCLEATED RED BLOOD CELLS (BEAKER) (test 0 /100 WBC 0-0 unpw=511) NEUTROPHILS RELATIVE PERCENT (BEAKER) (test 72 % qfqt=716) LYMPHOCYTES RELATIVE PERCENT (BEAKER) (test 18 % zpcq=678) MONOCYTES RELATIVE PERCENT (BEAKER) (test 7 % fihk=377) EOSINOPHILS RELATIVE PERCENT (BEAKER) (test 3 % ytbt=704) BASOPHILS RELATIVE PERCENT (BEAKER) (test 0 % imty=078) NEUTROPHILS ABSOLUTE COUNT (BEAKER) (test 5.31 K/ L 1.80-8.00 zmho=553) LYMPHOCYTES ABSOLUTE COUNT (BEAKER) (test 1.30 K/ L 1.48-4.50 gixu=128) MONOCYTES ABSOLUTE COUNT (BEAKER) (test 0.53 K/ L 0.00-1.30 bvba=382) EOSINOPHILS ABSOLUTE COUNT (BEAKER) (test 0.23 K/ L 0.00-0.50 ddbq=737) BASOPHILS ABSOLUTE COUNT (BEAKER) (test 0.03 K/ L 0.00-0.20 susb=693) POCT-GLUCOSE [id number] 17:58:00 Test Item Value Reference Range Comments POC-GLUCOSE METER (BEAKER) 76 mg/dL 70-110 TESTED AT [address] (test wdrh=2472) [facility] [id number] POCT-GLUCOSE [id number] 17:46:00 Test Item Value Reference Range Comments POC-GLUCOSE METER (BEAKER) 69 mg/dL 70-110 TESTED AT [address] (test wxyz=0065) [facility] [id number] POCT-GLUCOSE [id number] 12:14:00 Test Item Value Reference Range Comments POC-GLUCOSE METER (BEAKER) 87 mg/dL 70-110 TESTED AT [address] (test rvsa=2320) [facility] [id number] CBC W/PLT COUNT & AUTO [id number] 08:49:00 Test Item Value Reference Range Comments WHITE BLOOD CELL COUNT (BEAKER) (test lsak=255) 7.8 K/ L 4.0-10.0 RED BLOOD CELL COUNT (BEAKER) (test zfwa=958) 3.39 M/ L 4.20-5.80 HEMOGLOBIN (BEAKER) (test miwr=362) 10.8 GM/DL 13.0-16.8 HEMATOCRIT (BEAKER) (test kvdq=919) 31.8 % 40.0-50.0 MEAN CORPUSCULAR VOLUME (BEAKER) (test eyvb=972) 93.9 fL 82.0-98.0 MEAN CORPUSCULAR HEMOGLOBIN (BEAKER) (test 32.0 pg 27.0-33.0 xnfr=627) MEAN CORPUSCULAR HEMOGLOBIN CONC (BEAKER) (test 34.1 GM/DL 32.0-36.0 ylsb=523) RED CELL DISTRIBUTION WIDTH (BEAKER) (test 13.5 % 10.3-14.2 oxic=630) PLATELET COUNT (BEAKER) (test sgbb=590) 182 K/CU MM 150-430 MEAN PLATELET VOLUME (BEAKER) (test wvkk=965) 7.7 fL 6.5-10.5 NUCLEATED RED BLOOD CELLS (BEAKER) (test 0 /100 WBC 0-0 lixo=262) NEUTROPHILS RELATIVE PERCENT (BEAKER) (test 65 % nxwm=069) LYMPHOCYTES RELATIVE PERCENT (BEAKER) (test 25 % xxxv=843) MONOCYTES RELATIVE PERCENT (BEAKER) (test 7 % clbp=173) EOSINOPHILS RELATIVE PERCENT (BEAKER) (test 3 % xyrs=458) BASOPHILS RELATIVE PERCENT (BEAKER) (test 0 % oymt=512) NEUTROPHILS ABSOLUTE COUNT (BEAKER) (test 5.06 K/ L 1.80-8.00 caav=045) LYMPHOCYTES ABSOLUTE COUNT (BEAKER) (test 1.93 K/ L 1.48-4.50 eqrg=235) MONOCYTES ABSOLUTE COUNT (BEAKER) (test 0.52 K/ L 0.00-1.30 wtdu=374) EOSINOPHILS ABSOLUTE COUNT (BEAKER) (test 0.26 K/ L 0.00-0.50 dztf=888) BASOPHILS ABSOLUTE COUNT (BEAKER) (test 0.03 K/ L 0.00-0.20 pgrp=637) 0.00BASIC METABOLIC [id number] 07:39:00 Test Item Value Reference Range Comments SODIUM (BEAKER) (test 139 meq/L 136-145 duzs=085) POTASSIUM (BEAKER) (test 3.8 meq/L 3.5-5.1 dslx=664) CHLORIDE (BEAKER) (test 109 meq/L 98-107 jirm=347) CO2 (BEAKER) (test 23 meq/L 22-29 pmwn=004) BLOOD UREA NITROGEN 4 mg/dL 7-21 (BEAKER) (test kzac=694) CREATININE (BEAKER) (test 0.67 mg/dL 0.57-1.25 kjso=513) GLUCOSE RANDOM (BEAKER) 86 mg/dL 70-105 (test luun=442) CALCIUM (BEAKER) (test 8.4 mg/dL 8.4-10.2 lmic=196) EGFR (BEAKER) (test 141 mL/min/1.73 sq m ESTIMATED GFR IS NOT irvi=5628) ACCURATE CREATININE CLEARANCE IN PREDICTING GLOMERULAR FILTRATION RATE. ESTIMATED GFR IS NOT APPLICABLE FOR DIALYSIS PATIENTS. BLOOD GAS, [id number] 07:13:00 Test Item Value Reference Range Comments PH ARTERIAL (BEAKER) (test ixyf=585) 7.40 7.35-7.45 PCO2 ARTERIAL (BEAKER) (test kopy=080) 42 mmHg 35-45 PO2 ARTERIAL (BEAKER) (test imzo=492) 90 mmHg 80-90 O2 SATURATION ARTERIAL (BEAKER) (test ntcj=502) 97.0 % 96.0-97.0 HCO3 ARTERIAL (BEAKER) (test dxxp=792) 26 mmol/L 21-29 BASE EXCESS ARTERIAL (BEAKER) (test llrr=727) 0.6 mmol/L -2.0-3.0 PATIENT TEMPERATURE (BEAKER) (test wjgc=6545) 36.6 C FIO2 (BEAKER) (test txff=6008) 40.0 % POCT-GLUCOSE [id number] 00:57:00 Test Item Value Reference Range Comments POC-GLUCOSE METER (BEAKER) 84 mg/dL 70-110 TESTED AT [address] (test nsqa=8810) [place] [address] POCT-GLUCOSE [id number] 18:15:00 Test Item Value Reference Range Comments POC-GLUCOSE METER (BEAKER) 81 mg/dL 70-110 TESTED AT [address] (test jwoo=2563) [place] [address] [id number] 12:57:00 Test Item Value Reference Range Comments POTASSIUM (BEAKER) (test lckp=115) 3.8 meq/L 3.5-5.1 Check Serum Potassium level 2 hours after oral potassium replacement completed or 30 min after intravenous potassium replacement.POCT-GLUCOSE [id number] 12:17:00 Test Item Value Reference Range Comments POC-GLUCOSE METER (BEAKER) 85 mg/dL 70-110 TESTED AT [address] (test zjyj=6153) [place] [address] URINALYSIS W/ [id number] 10:13:00 Test Item Value Reference Range Comments COLOR (BEAKER) (test ugsu=375) Wiley CLARITY (BEAKER) (test pikw=691) Cloudy SPECIFIC GRAVITY UA (BEAKER) (test kagg=356) 1.020 1.001-1.035 PH UA (BEAKER) (test nsif=296) 7.0 5.0-8.0 PROTEIN UA (BEAKER) (test ukfe=213) 70 mg/dL Negative GLUCOSE UA (BEAKER) (test oujm=897) Negative Negative KETONES UA (BEAKER) (test uwxc=999) 40 mg/dL Negative BILIRUBIN UA (BEAKER) (test vwxx=640) Negative Negative BLOOD UA (BEAKER) (test qrkl=558) Large Negative NITRITE UA (BEAKER) (test zpph=748) Negative Negative LEUKOCYTE ESTERASE UA (BEAKER) (test rczn=753) Small Negative UROBILINOGEN UA (BEAKER) (test iqfr=026) 0.2 mg/dL 0.2-1.0 RBC UA (BEAKER) (test pxzz=023) > /HPF WBC UA (BEAKER) (test hfqx=900) 23 /HPF MUCUS (BEAKER) (test qulu=1345) Rare AMORPHOUS CRYSTALS (BEAKER) (test bpco=5828) Many SOURCE(BEAKER) (test ywbd=7438) Urine, [place] CREATINE KINASE (CK)2017-02-08 08:58:00 Test Item Value Reference Range Comments CREATINE KINASE TOTAL (BEAKER) (test pwgq=019) 146 U/L 29-200 CBC W/PLT COUNT & AUTO [id number] 06:20:00 Test Item Value Reference Range Comments WHITE BLOOD CELL COUNT (BEAKER) (test ezwg=604) 11.8 K/ L 4.0-10.0 RED BLOOD CELL COUNT (BEAKER) (test dzvt=296) 3.71 M/ L 4.20-5.80 HEMOGLOBIN (BEAKER) (test lzti=886) 12.0 GM/DL 13.0-16.8 HEMATOCRIT (BEAKER) (test ztxh=992) 34.8 % 40.0-50.0 MEAN CORPUSCULAR VOLUME (BEAKER) (test nsog=528) 93.7 fL 82.0-98.0 MEAN CORPUSCULAR HEMOGLOBIN (BEAKER) (test 32.2 pg 27.0-33.0 urws=585) MEAN CORPUSCULAR HEMOGLOBIN CONC (BEAKER) (test 34.4 GM/DL 32.0-36.0 ieoi=966) RED CELL DISTRIBUTION WIDTH (BEAKER) (test 13.5 % 10.3-14.2 blry=505) PLATELET COUNT (BEAKER) (test zbgr=805) 205 K/CU MM 150-430 MEAN PLATELET VOLUME (BEAKER) (test spnj=014) 7.7 fL 6.5-10.5 NUCLEATED RED BLOOD CELLS (BEAKER) (test 0 /100 WBC 0-0 xpmc=643) NEUTROPHILS RELATIVE PERCENT (BEAKER) (test 81 % qsom=941) LYMPHOCYTES RELATIVE PERCENT (BEAKER) (test 13 % rwng=595) MONOCYTES RELATIVE PERCENT (BEAKER) (test 5 % krwq=169) EOSINOPHILS RELATIVE PERCENT (BEAKER) (test 0 % ibmr=024) BASOPHILS RELATIVE PERCENT (BEAKER) (test 0 % wosq=174) NEUTROPHILS ABSOLUTE COUNT (BEAKER) (test 9.54 K/ L 1.80-8.00 hvjp=845) LYMPHOCYTES ABSOLUTE COUNT (BEAKER) (test 1.53 K/ L 1.48-4.50 lrkj=356) MONOCYTES ABSOLUTE COUNT (BEAKER) (test 0.63 K/ L 0.00-1.30 mwib=085) EOSINOPHILS ABSOLUTE COUNT (BEAKER) (test 0.06 K/ L 0.00-0.50 yozl=823) BASOPHILS ABSOLUTE COUNT (BEAKER) (test 0.01 K/ L 0.00-0.20 odit=486) 0.00POCT-GLUCOSE [id number] 06:13:00 Test Item Value Reference Range Comments POC-GLUCOSE METER (BEAKER) 105 mg/dL 70-[address] [facility] [address] [facility] (test okbe=3805) [facility] [address] BASIC METABOLIC [id number] 05:10:00 Test Item Value Reference Range Comments SODIUM (BEAKER) (test 142 meq/L 136-145 aaor=077) POTASSIUM (BEAKER) (test 3.4 meq/L 3.5-5.1 hhmi=307) CHLORIDE (BEAKER) (test 111 meq/L 98-107 hctq=613) CO2 (BEAKER) (test 24 meq/L 22-29 zgle=269) BLOOD UREA NITROGEN 7 mg/dL 7-21 (BEAKER) (test opux=918) CREATININE (BEAKER) (test 0.65 mg/dL 0.57-1.25 vhxt=924) GLUCOSE RANDOM (BEAKER) 104 mg/dL 70-105 (test jzgg=848) CALCIUM (BEAKER) (test 8.6 mg/dL 8.4-10.2 ihcs=950) EGFR (BEAKER) (test 146 mL/min/1.73 sq m ESTIMATED GFR IS NOT ddjr=3985) ACCURATE CREATININE CLEARANCE IN PREDICTING GLOMERULAR FILTRATION RATE. ESTIMATED GFR IS NOT APPLICABLE FOR DIALYSIS PATIENTS. BLOOD GAS, [id number] 04:50:00 Test Item Value Reference Range Comments PH ARTERIAL (BEAKER) (test lmww=992) 7.43 7.35-7.45 PCO2 ARTERIAL (BEAKER) (test rcce=974) 39 mmHg 35-45 PO2 ARTERIAL (BEAKER) (test iqcl=100) 214 mmHg 80-90 O2 SATURATION ARTERIAL (BEAKER) (test iuqj=820) 99.5 % 96.0-97.0 HCO3 ARTERIAL (BEAKER) (test bvbf=079) 25 mmol/L 21-29 BASE EXCESS ARTERIAL (BEAKER) (test hulz=161) 0.7 mmol/L -2.0-3.0 PATIENT TEMPERATURE (BEAKER) (test moiw=7769) 37.0 C FIO2 (BEAKER) (test hglv=6613) 60.0 % POCT-GLUCOSE [id number] 00:02:00 Test Item Value Reference Range Comments POC-GLUCOSE METER (BEAKER) 94 mg/dL 70-110 TESTED AT [address] (test kvml=6097) [facility] [address] POCT-GLUCOSE [id number] 18:26:00 Test Item Value Reference Range Comments POC-GLUCOSE METER (BEAKER) 108 mg/dL 70-110 TESTED AT [address] (test ouga=5481) [place] [id number] RAPID DRUG SCREEN, [id number] 14:43:00 Test Item Value Reference Range Comments BARBITURATE URINE (BEAKER) (test jwvb=250) Negative Negative BENZODIAZEPINE SCREEN URINE (BEAKER) (test Positive Negative ugui=361) COCAINE (METAB.) SCREEN (BEAKER) (test hxya=9427) Negative Negative METHADONE SCREEN (BEAKER) (test fyyr=9958) Negative Negative OPIATE SCREEN URINE (BEAKER) (test vegg=818) Negative Negative CANNABINOID SCREEN URINE (BEAKER) (test xgwn=649) Positive Negative AMPH/METHAMPH SCREEN (BEAKER) (test qwch=4504) Positive Negative PHENCYCLIDINE SCREEN URINE (BEAKER) (test jgju=105) Negative Negative OXYCODONE SCREEN URINE (BEAKER) (test xosq=6163) Negative Negative DRUG CUTOFF CONC.Cocaine 300 ng/mL Cannabinoid 50 ng/mL Benzodiazepine 200 ng/mLBarbiturate 200 ng/ mLPhencyclidine 25 ng/mLOpiate 300 ng/mLMethadone 300 ng/mLAmphetamine/ 1000 ng/mL MethamphetamineOxycodone 300 ng/mLThis assay provides an unconfirmed qualitative test result for the clinical management of patients in emergency situations. Chain of custody not maintained. Some gvyc-bkw-eyffzya medications, as well as adulterants, may cause inaccurate results. Clinical correlation should be applied. A more comprehensive drug screen or confirmation of a detected drug may be performed upon request.URINALYSIS W/ [id number] 14:29:00 Test Item Value Reference Range Comments COLOR (BEAKER) (test peel=580) Yellow CLARITY (BEAKER) (test kuad=943) Clear SPECIFIC GRAVITY UA (BEAKER) (test wvku=565) 1.022 1.001-1.035 PH UA (BEAKER) (test xhsc=993) 5.5 5.0-8.0 PROTEIN UA (BEAKER) (test oxih=338) 10 mg/dL Negative GLUCOSE UA (BEAKER) (test ulgm=672) Negative Negative KETONES UA (BEAKER) (test zoxd=753) Negative Negative BILIRUBIN UA (BEAKER) (test ftji=868) Negative Negative BLOOD UA (BEAKER) (test jwli=208) Moderate Negative NITRITE UA (BEAKER) (test zpep=286) Negative Negative LEUKOCYTE ESTERASE UA (BEAKER) (test quwf=562) Moderate Negative UROBILINOGEN UA (BEAKER) (test nqbn=564) 0.2 mg/dL 0.2-1.0 RBC UA (BEAKER) (test opya=352) 2 /HPF WBC UA (BEAKER) (test xqzq=210) 8 /HPF URIC ACID CRYSTALS (BEAKER) (test tvqj=2923) Rare SOURCE(BEAKER) (test qjlv=7847) COMPREHENSIVE METABOLIC [id number] 12:27:00 Test Item Value Reference Range Comments TOTAL PROTEIN (BEAKER) 6.4 gm/dL 6.0-8.3 (test jrjx=592) ALBUMIN (BEAKER) (test 3.6 g/dL 3.5-5.0 hfqp=0805) ALKALINE PHOSPHATASE 68 U/L 40-150 (BEAKER) (test uucm=993) BILIRUBIN TOTAL (BEAKER) 0.8 mg/dL 0.2-1.2 (test bbcm=184) SODIUM (BEAKER) (test 145 meq/L 136-145 dzrl=068) POTASSIUM (BEAKER) (test 3.6 meq/L 3.5-5.1 crxr=541) CHLORIDE (BEAKER) (test 114 meq/L 98-107 dtuq=972) CO2 (BEAKER) (test 24 meq/L 22-29 rtys=459) BLOOD UREA NITROGEN 8 mg/dL 7-21 (BEAKER) (test sgln=653) CREATININE (BEAKER) (test 0.74 mg/dL 0.57-1.25 zxap=102) GLUCOSE RANDOM (BEAKER) 106 mg/dL 70-105 (test xdap=907) CALCIUM (BEAKER) (test 8.5 mg/dL 8.4-10.2 stzs=467) AST (SGOT) (BEAKER) (test 27 U/L 5-34 motq=148) ALT (SGPT) (BEAKER) (test 18 U/L 6-55 ybnq=579) EGFR (BEAKER) (test 126 mL/min/1.73 sq ESTIMATED GFR IS NOT yudy=4260) m ACCURATE CREATININE CLEARANCE IN PREDICTING GLOMERULAR FILTRATION RATE. ESTIMATED GFR IS NOT APPLICABLE FOR DIALYSIS PATIENTS. BLOOD GAS, [id number] 12:18:00 Test Item Value Reference Range Comments PH ARTERIAL (BEAKER) (test dpwd=091) 7.38 7.35-7.45 PCO2 ARTERIAL (BEAKER) (test yejh=103) 42 mmHg 35-45 PO2 ARTERIAL (BEAKER) (test jvtj=290) 106 mmHg 80-90 O2 SATURATION ARTERIAL (BEAKER) (test fqsx=661) 97.8 % 96.0-97.0 HCO3 ARTERIAL (BEAKER) (test hhxi=579) 24 mmol/L 21-29 BASE EXCESS ARTERIAL (BEAKER) (test saxa=388) -0.8 mmol/L -2.0-3.0 PATIENT TEMPERATURE (BEAKER) (test eewa=4413) 37.0 C FIO2 (BEAKER) (test yzbv=5220) 60.0 % CBC W/PLT COUNT & AUTO [id number] 12:14:00 Test Item Value Reference Range Comments WHITE BLOOD CELL COUNT (BEAKER) (test snux=629) 13.0 K/ L 4.0-10.0 RED BLOOD CELL COUNT (BEAKER) (test ujeu=363) 3.99 M/ L 4.20-5.80 HEMOGLOBIN (BEAKER) (test msxr=597) 12.7 GM/DL 13.0-16.8 HEMATOCRIT (BEAKER) (test jorl=174) 37.4 % 40.0-50.0 MEAN CORPUSCULAR VOLUME (BEAKER) (test mqnz=831) 93.7 fL 82.0-98.0 MEAN CORPUSCULAR HEMOGLOBIN (BEAKER) (test 31.8 pg 27.0-33.0 xori=783) MEAN CORPUSCULAR HEMOGLOBIN CONC (BEAKER) (test 33.9 GM/DL 32.0-36.0 izpg=728) RED CELL DISTRIBUTION WIDTH (BEAKER) (test 12.4 % 10.3-14.2 gibo=677) PLATELET COUNT (BEAKER) (test bxcp=076) 238 K/CU MM 150-430 MEAN PLATELET VOLUME (BEAKER) (test wsgu=602) 7.2 fL 6.5-10.5 NUCLEATED RED BLOOD CELLS (BEAKER) (test 0 /100 WBC 0-0 nffd=248) NEUTROPHILS RELATIVE PERCENT (BEAKER) (test 81 % xred=908) LYMPHOCYTES RELATIVE PERCENT (BEAKER) (test 12 % fjht=221) MONOCYTES RELATIVE PERCENT (BEAKER) (test 6 % lvoo=644) EOSINOPHILS RELATIVE PERCENT (BEAKER) (test 0 % gyei=259) BASOPHILS RELATIVE PERCENT (BEAKER) (test 0 % ilmg=226) NEUTROPHILS ABSOLUTE COUNT (BEAKER) (test 10.60 K/ L 1.80-8.00 smex=895) LYMPHOCYTES ABSOLUTE COUNT (BEAKER) (test 1.61 K/ L 1.48-4.50 wqso=332) MONOCYTES ABSOLUTE COUNT (BEAKER) (test 0.77 K/ L 0.00-1.30 qduv=494) EOSINOPHILS ABSOLUTE COUNT (BEAKER) (test 0.03 K/ L 0.00-0.50 mree=349) BASOPHILS ABSOLUTE COUNT (BEAKER) (test 0.01 K/ L 0.00-0.20 uzvf=695) 0.00
[2018-03-02] MEDS ORDERED: NA CHLORIDE 0.9% 1,000 ML ONE (18:01)
[2018-03-02 18:38] LABS: Absolute Lymphocytes (CBC) 2.4 K/uL (0.7-4.9); Absolute Monocytes 0.4 K/uL (0.1-1.3); Absolute Neutrophil 3.6 K/uL (1.8-8.0); Basophils % 0.2 % (0-1.3); Hematocrit 38.2 % (39.6-49.0); MCH 32.3 pg (27.0-35.0); MCV 92.5 fL (80-100); MPV 8.7 fL (7.6-11.3); Monocytes % 5.5 % (3.3-12.3); RBC Red Blood Cell Count 4.13 M/uL (4.33-5.43)
[2018-03-02 18:41] LABS: Protime INR 1.08
[2018-03-02 19:12] LABS: ALT/SGPT 17 U/L (12-78); AST/SGOT 9 U/L (15-37); Albumin 3.7 g/dL (3.4-5.0); Alkaline Phosphatase 65 U/L (45-117); BUN Blood Urea Nitrogen 5 mg/dL (7-18); Bicarbonate 28 mmol/L (21-32); Bilirubin Direct 0.2 mg/dL (0-0.2); Bilirubin Total 0.5 mg/dL (0.2-1.0); Glucose Level 84 mg/dL (74-106); Potassium 3.7 mmol/L (3.5-5.1); Protein, Total 6.6 g/dL (6.4-8.2); Sodium Level 144 mmol/L (136-145)
[2018-03-02 19:13] LABS: Alcohol Serum/Plasma 5 mg/dL (<3)
[2018-03-02 19:36] LABS: Barbiturates NEGATIVE (NEGATIVE); Benzodiazepines NEGATIVE (NEGATIVE); Cocaine NEGATIVE (NEGATIVE); METHAMPHETAM NEGATIVE (NEGATIVE); Methadone NEGATIVE (NEGATIVE); Opiates NEGATIVE (NEGATIVE); Phencyclidine NEGATIVE (NEGATIVE); THC Cannibis POSITIVE (NEGATIVE)
[2018-03-02 20:04] LABS: Urine Blood NEGATIVE (NEG); Urine Glucose NEGATIVE (NEG); Urine Protein 1+ (NEG); Urine Specific Gravity >1.030 (1.005-1.030); Urine pH 5.5 (5.0-7.0)
--- NOTE | 2018-03-02 20:08 | ER ---
Nurse's Notes [facility] Name: Kana Galdamez Age: 27 yrs Sex: Male : 1990 Arrival Date: 03/02/2018 Time: 17:41 Bed 6 Private MD: Diagnosis: Drug use;Patient's other noncompliance with medication regimen Presentation: 03/02 17:41 Presenting complaint: EMS states: toned out by pd for a male sleeping on the side walk, ch responded to verbal stimuli only. pt was found with synthetic marajuana and drug paraphernalia around him. pt states he is [place]. pt states he has not eaten in days. bgl 90. Transition of care: patient was not received from another setting of care. Onset of symptoms was March 02, 2018. Risk Assessment:. Initial Sepsis Screen: Does the patient meet any 2 criteria? No. Patient's initial sepsis screen is negative. Does the patient have a suspected source of infection? No. Patient's initial sepsis screen is negative. Care prior to arrival: None. 17:41 [facility] Of [facility] 17:41 Acuity: RHETT 3 ch Triage Assessment: 17:46 General: Appears in no apparent distress. comfortable, Behavior is calm, cooperative, ch listless, pt is lethargic in room. General: Smells of alcohol, pt smells strongly of body odor. Pain: Denies pain. Neuro: Level of Consciousness is obeys commands, lethargic, Oriented to person, Ground Support Equipment Assembler are equal bilaterally Moves all extremities. Full function Gait is unsteady, Speech is slurred, Facial symmetry appears normal, Facial symmetry: tongue is midline, Pupils are sluggish, dilated. Cardiovascular: Heart tones S1 S2 present Capillary refill < 3 seconds in bilateral fingers toes. Respiratory: Airway is patent Respiratory effort is even, unlabored. Derm: Skin is pink, warm \T\ dry. Historical: - Allergies: 17:46 NKA; ch - Home Meds: 17:46 pt states he is out of all of them and does not rember what he is supposed to take ch [Active]; trazodone possible [Active]; - PMHx: 17:46 ADD/ADHD; Asthma; Bipolar disorder; Depression; HEARING IMPAIRED; suicidal ch attempts-multiple; homeless; drug abuse; suicidal ideation; - PSHx: 17:46 Unable to obtain; - Immunization history:: Adult Immunizations not up to date. - Social history:: Smoking status: Patient/guardian denies using tobacco. - Ebola Screening: : Patient negative for fever greater than or equal to 101.5 degrees Fahrenheit, and additional compatible Ebola Virus Disease symptoms Patient denies exposure to infectious person Patient denies travel to an Ebola-affected area in the 21 days before illness onset No symptoms or risks identified at this time. Screenin:49 Abuse screen: Denies threats or abuse. Denies injuries from another. Nutritional ch screening: No deficits noted. Tuberculosis screening: No symptoms or risk factors identified. Fall Risk None identified. Assessment: 18:27 General: Appears in no apparent distress. comfortable, Behavior is calm, cooperative, ch appropriate for age, quiet. Pain: Denies pain. Neuro: Level of Consciousness is pt responds to verbal stimuli, otherwise is sleeping. pt aaox4 after re orientation . Respiratory: Airway is patent Respiratory effort is even, unlabored. 18:30 Reassessment: Patient appears in no apparent distress at this time. Patient and/or family updated on plan of care and expected duration. Pain level reassessed. Patient is alert, oriented x 3, equal unlabored respirations, skin warm/dry/pink. 18:51 Reassessment: Patient appears in no apparent distress at this time. No changes from previously documented assessment. Patient and/or family updated on plan of care and expected duration. Pain level reassessed. Patient is alert, oriented x 3, equal unlabored respirations, skin warm/dry/pink. pt urinating in urinal then we will feed pt. Patient states feeling better. Patient states symptoms have improved. 19:18 Reassessment: Patient appears in no apparent distress at this time. Patient and/or ch family updated on plan of care and expected duration. Pain level reassessed. Patient is alert, oriented x 3, equal unlabored respirations, skin warm/dry/pink. pt stands to urinate, steady on his feet without assistance. pt eats crackers, peanut butter, drinks juice, and water. pt then returns to sleep. no s/s of distress. pt is more alert, responds appropriately to verbal stimuli Patient states feeling better. Patient states symptoms have improved. 20:30 Reassessment: Patient appears in no apparent distress at this time. Patient is alert, aa1 oriented x 3, equal unlabored respirations, skin warm/dry/pink. Discussed d/c \T\ f/u instructions with pt; denies questions or concerns at this time Patient denies pain at this time. Vital Signs: 17:46 BP 90 / 42; Pulse 58; Resp 10; Temp 99; Pulse Ox 94% on R/A; Weight 81.65 kg; Height 5 ch ft. 8 in. (172.72 cm); Pain 0/10; 18:27 BP 97 / 54; Pulse 54; Resp 12; Pulse Ox 96% on R/A; Pain 0/10; ch 18:51 BP 101 / 54; Pulse 62; Resp 14; Temp 98.8; Pulse Ox 98% on R/A; Pain 0/10; ch 20:30 BP 111 / 61; Pulse 65; Resp 16; Pulse Ox 99% on R/A; Pain 0/10; aa1 17:46 Body Mass Index 27.37 (81.65 kg, 172.72 cm) ED Course: 17:41 Patient arrived in ED. ch 17:43 Rika Em FNP-C [facility]. snw 17:43 Amilcar Singer MD is Attending Physician. snw 17:44 Triage completed. ch 17:46 Arm band placed on left wrist. Patient placed in an exam room, on a stretcher, on pulse oximetry. 17:49 No apparent distress. ch 17:49 Patient has correct armband on for positive identification. Bed in low position. Call light in reach. Side rails up X2. Pulse ox on. NIBP on. Warm blanket given. 17:49 No provider procedures requiring assistance completed. ch 18:00 Inserted saline lock: 18 gauge in right upper arm, using aseptic technique. Blood ch collected. 18:27 Rebekah Matthew, GUSTABO is Primary Nurse. ch 18:29 No apparent distress. Appears to be sleeping. ch 20:30 IV discontinued, intact, bleeding controlled, No redness/swelling at site. Pressure aa1 dressing applied. Administered Medications: 18:15 Drug: NS 0.9% 1000 ml Route: IV; Rate: 1000 ml; Site: right upper arm; 18:43 Follow up: IV Status: Completed infusion; IV Intake: 1000ml ch Intake: 18:43 IV: 1000ml; Total: 1000ml. Outcome: 20:08 Discharge ordered by . caio 20:30 Discharged to home ambulatory. aa1 20:30 Condition: good 20:30 Discharge instructions given to patient, Instructed on discharge instructions, follow up and referral plans. Demonstrated understanding of instructions, follow-up care. 20:33 Patient left the ED. aa1 Signatures: Rebekah Matthew RN RN Rupal Patel RN RN aa1 Rika Em, REFINERY SUPERINTENDENT-C REFINERY SUPERINTENDENT-Csnw
--- NOTE | 2018-03-02 20:08 | EDPHYS ---
Physician Documentation [facility] Name: Kana Galdamez Age: 27 yrs Sex: Male : 1990 Arrival Date: 03/02/2018 Time: 17:41 Bed 6 Private MD: ED Physician Amilcar Singer HPI: 03/02 18:34 This 27 yrs old Male presents to ER via EMS with complaints of Drug Abuse. snw 18:34 Smoked synthetic marijuana and passed out. Onset: The symptoms/episode began/occurred snw acutely. Severity of symptoms: At their worst the symptoms were moderate. It is unknown whether or not the patient has had similar symptoms in the past. The patient has not recently seen a physician. Historical: - Allergies: 17:46 NKA; ch - Home Meds: 17:46 pt states he is out of all of them and does not rember what he is supposed to take ch [Active]; trazodone possible [Active]; - PMHx: 17:46 ADD/ADHD; Asthma; Bipolar disorder; Depression; HEARING IMPAIRED; suicidal ch attempts-multiple; homeless; drug abuse; suicidal ideation; - PSHx: 17:46 Unable to obtain; ch - Immunization history:: Adult Immunizations not up to date. - Social history:: Smoking status: Patient/guardian denies using tobacco. - Ebola Screening: : Patient negative for fever greater than or equal to 101.5 degrees Fahrenheit, and additional compatible Ebola Virus Disease symptoms Patient denies exposure to infectious person Patient denies travel to an Ebola-affected area in the 21 days before illness onset No symptoms or risks identified at this time. ROS: 18:32 Constitutional: Negative for fever, chills, and weight loss, Eyes: Negative for injury, snw pain, redness, and discharge, ENT: Negative for injury, pain, and discharge, Neck: Negative for injury, pain, and swelling, Cardiovascular: Negative for chest pain, palpitations, and edema, Respiratory: Negative for shortness of breath, cough, wheezing, and pleuritic chest pain, Abdomen/GI: Negative for abdominal pain, nausea, vomiting, diarrhea, and constipation, Back: Negative for injury and pain, : Negative for injury, bleeding, discharge, and swelling, MS/Extremity: Negative for injury and deformity, Skin: Negative for injury, rash, and discoloration, Neuro: Negative for headache, weakness, numbness, tingling, and seizure. 18:32 Neuro: Positive for "I smoked some synthetic marijuana and passed out", police told pt [place]. Pt usually gets his meds from [facility] but has not filled his meds for bipolar disorder in 3 months. Exam: 17:55 Constitutional: This is a well developed, well nourished patient who is awake, drowsy, snw and in no acute distress. Head/Face: Normocephalic, atraumatic. Eyes: Pupils equal round and reactive to light, extra-ocular motions intact. Lids and lashes normal. Conjunctiva and sclera are non-icteric and not injected. Cornea within normal limits. Periorbital areas with no swelling, redness, or edema. ENT: Nares patent. No nasal discharge, no septal abnormalities noted. Tympanic membranes are normal and external auditory canals are clear. Oropharynx with no redness, swelling, or masses, exudates, or evidence of obstruction, uvula midline. Mucous membranes moist. Neck: Trachea midline, no thyromegaly or masses palpated, and no cervical lymphadenopathy. Supple, full range of motion without nuchal rigidity, or vertebral point tenderness. No Meningismus. Chest/axilla: Normal chest wall appearance and motion. Nontender with no deformity. No lesions are appreciated. Cardiovascular: Regular rate and rhythm with a normal S1 and S2. No gallops, murmurs, or rubs. Normal PMI, no JVD. No pulse deficits. Respiratory: Lungs have equal breath sounds bilaterally, clear to auscultation and percussion. No rales, rhonchi or wheezes noted. No increased work of breathing, no retractions or nasal flaring. Abdomen/GI: Soft, non-tender, with normal bowel sounds. No distension or tympany. No guarding or rebound. No evidence of tenderness throughout. Back: No spinal tenderness. No costovertebral tenderness. Full range of motion. Skin: Warm, dry with normal turgor. Normal color with no rashes, no lesions, and no evidence of cellulitis. MS/ Extremity: Pulses equal, no cyanosis. Neurovascular intact. Full, normal range of motion. Neuro: Awake and alert, GCS 15, oriented to person, place, time, and situation. Cranial nerves II-XII grossly intact. Motor strength 5/5 in all extremities. Sensory grossly intact. Cerebellar exam normal. Normal gait. 17:55 Psych: Behavior/mood is drowsy. Affect is flat, Oriented to person, place, Patient has no thoughts/intents to harm self or others. Judgement / Insight is impaired. 2nd to recent drug use. Vital Signs: 17:46 BP 90 / 42; Pulse 58; Resp 10; Temp 99; Pulse Ox 94% on R/A; Weight 81.65 kg; Height 5 ch ft. 8 in. (172.72 cm); Pain 0/10; 18:27 BP 97 / 54; Pulse 54; Resp 12; Pulse Ox 96% on R/A; Pain 0/10; ch 18:51 BP 101 / 54; Pulse 62; Resp 14; Temp 98.8; Pulse Ox 98% on R/A; Pain 0/10; ch 20:30 BP 111 / 61; Pulse 65; Resp 16; Pulse Ox 99% on R/A; Pain 0/10; aa1 17:46 Body Mass Index 27.37 (81.65 kg, 172.72 cm) ch MDM: 17:43 Patient medically screened. snw 23:26 Data reviewed: vital signs, nurses notes. Data interpreted: Pulse oximetry: on room air snw is 99 %. Interpretation: normal. Counseling: I had a detailed discussion with the patient and/or guardian regarding: the historical points, exam findings, and any diagnostic results supporting the discharge/admit diagnosis, lab results, radiology results, the need for outpatient follow up, to return to the emergency department if symptoms worsen or persist or if there are any questions or concerns that arise at home. Special discussion: Based on the history and exam findings, there is no indication for further emergent testing or inpatient evaluation. I discussed with the patient/guardian the need to see the primary care provider for further evaluation of the symptoms. 03/02 17:54 Order name: Acetaminophen; Complete Time: 19:17 snw 03/02 17:54 Order name: Basic Metabolic Panel; Complete Time: 19:17 snw 03/02 17:54 Order name: CBC with Diff; Complete Time: 18:45 snw 03/02 17:54 Order name: ETOH Level; Complete Time: 19:17 snw 03/02 17:54 Order name: Hepatic Function; Complete Time: 19:17 snw 04 17:54 Order name: PT-INR; Complete Time: 18:45 snw 04 17:54 Order name: Ptt, Activated; Complete Time: 18:45 snw 04 17:54 Order name: Salicylate; Complete Time: 18:45 snw 04 17:54 Order name: Urine Drug Screen; Complete Time: 19:51 snw 03/02 17:54 Order name: EKG; Complete Time: 17:55 snw 03/02 17:54 Order name: EKG - Nurse/Tech; Complete Time: 18:30 snw 03/02 17:54 Order name: IV Saline Lock; Complete Time: 18:29 snw 04 19:09 Order name: Urine Dipstick--Ancillary (enter results); Complete Time: 20:05 cc 03/02 17:54 Order name: Labs collected and sent; Complete Time: 18:30 snw 03/02 17:54 Order name: Urine Dipstick-Ancillary (obtain specimen); Complete Time: 19:08 snw Administered Medications: 18:15 Drug: NS 0.9% 1000 ml Route: IV; Rate: 1000 ml; Site: right upper arm; 18:43 Follow up: IV Status: Completed infusion; IV Intake: 1000ml Disposition: 03/02/18 20:08 Discharged to Home. Impression: Drug use, Patient's other noncompliance with medication regimen. - Condition is Stable. - Discharge Instructions: What You Need To Know About Illegal Drug Use and Dependence, Youth. - Medication Reconciliation Form, Thank You Letter, Antibiotic Education, Prescription Opioid Use form. - Follow up: Private Physician; When: 2 - 3 days; Reason: Recheck today's complaints, Continuance of care, Re-evaluation by your physician. Follow up: Emergency Department; When: As needed; Reason: Worsening of condition. - Problem is an acute exacerbation. - Symptoms have improved. Addendum: 03/04/2018 13:51 Co-signature as Attending Physician, Amilcar Singer MD I agree with the assessment and c hirsch plan of care. Signatures: Dispatcher [employer] Rebekah Russell RN RN Rupal Patel RN RN aa1 Amilcar Singer MD MD cha Therrien, Shelly, GROCERY STORE MANAGER-C GROCERY STORE MANAGER-Csnw Corrections: (The following items were deleted from the chart) 03/02 20:33 20:08 03/02/2018 20:08 Discharged to Home. Impression: Drug use; Patient's other aa1 noncompliance with medication regimen. Condition is Stable. Forms are Medication Reconciliation Form, Thank You Letter, Antibiotic Education, Prescription Opioid Use. Follow up: Private Physician; When: 2 - 3 days; Reason: Recheck today's complaints, Continuance of care, Re-evaluation by your physician. Follow up: Emergency Department; When: As needed; Reason: Worsening of condition. Problem is an acute exacerbation. Symptoms have improved. snw
--- NOTE | 2018-03-03 10:37 | EKG ---
Test Date: 2018-03-02 Test Time: 18:29:37 Bull Bucker: CATIE MEASUREMENT RESULTS: Intervals: Rate: 58 LA: 150 QRSD: 94 QT: 414 QTc: 406 [place]: P: 41 LA: 150 QRS: 70 T: 60 INTERPRETIVE STATEMENTS: Sinus bradycardia Otherwise normal ECG Compared to ECG 11/30/2017 14:07:41 Sinus rhythm no longer present Electronically Signed On 03-03-18 10:36:45 CDT by Monty Haynes
== END 2018-03-02 20:33 | disposition home or self-care (01) ==
LOC: ER 17:29
DX: F12.129 Cannabis abuse with intoxication, unspecified (principal); Z91.14 Patient's other noncompliance with medication regimen
CPT/HCPCS: 36415; 80048; 80076; 80307; 80320; 80329; 81003; 85025; 85610; 85730; 93005; 99284; J7030

== ENCOUNTER 2021-04-06 09:39 | Emergency (ER) | payer OTHER ==
[2021-04-06] MEDS ORDERED: LIDOCAINE 1% MPF 5 ML VIAL ONE (10:49)
[2021-04-06] MEDS ORDERED: TETANUS & DIPHTHERIA TOX,ADULT 0.5 ML VIAL ONE (10:49)
--- OUTSIDE RECORDS SUMMARY | 2021-04-06 10:49 | XMS REPORT | Continuity of Care Document ---
:1990 Author Organization [facility] t Address [address] [place] [address] Care Team Providers Name Role Phone UNKNOWN Primary Care Physician Unavailable JUJU HOLDEN M.D. Attending Clinician Unavailable JUJU HOLDEN M.D. Admitting Clinician Unavailable Problems Condition Condition Condition Status Onset Resolution Last Treating Co mments Source Name Details Category Date Date Treatment Clinician Date Suicidal Suicidal Disease Active [facility] ideation ideation [facility] l Allergies, Adverse Reactions, Alerts This patient has no known allergies or adverse reactions. Family History Family Member Diagnosis Comments Start Date Stop Date Source Maternal grandfather Depression [facility] Social History Social Habit Start Date Stop Date Quantity Comments Source History of tobacco Cigarette Smoker [facility] Cigarettes smoked 2018-01-01 2018-01-[address] current (pack per 00:00:00 00:00:00 Hospita l day) - Reported Cigarette 2018-01-01 2018-01-01 [facility]00 [facility] Tobacco use and 2018-01-01 2018-01-01 Never used [facility] exposure 00:[facility]00 Hospital Alcohol intake 2018-01-01 2018-01-01 Current [facility] 00:[facility]:00 [facility]:00:00 non-drinker of Hospital alcohol (finding) Alcohol Comment 2018-01-01 2018-01-01 "I don't drink [facility] 00:00:00 00:00:00 alcohol" Hospital Sex Assigned At [birth year] [facility] 00[facility] Smoking Status Start Date Stop Date Source Current every day smoker 2018-01-01 00:00:00 Met [facility] Medications This patient has no known medications. Procedures This patient has no known procedures. Encounters Start End Encounter Admission Attending Care Care Encounter Source Date/Time Date/Time Type Type Clinicians Facility Department ID 2015-12-01 Inpatient E [facility] [id number] [facility] 04:15:00 [facility] 2017-10-09 2017-10-17 Inpatient E [facility] [id number] St. 18:48:00 13:28:00 Bill MATUTE [facility] Results Test Description Test Time Test Comments Results Result Comments Source RPR, Qual 2017-10-10 20:48:00 Test Item Value Reference Range Interpretation Comme nts RPR (test code = RPR) Non-Reactive Non-Reactive N Thyroid Stimulating Hormone (TSH)2017-10-10 09:47:00 Test Item Value Reference Range Interpretation Comments TSH (test code = TSH) 1.78 mIU/mL 0.270-4.200 N Lipid [id number] 09:39:00 Test Item Value Reference Range Interpretation Comments Cholesterol (test 145 mg/dL 0-200 N code = CHOL) Triglycerides (test 110 mg/dL 9-200 N code = TRIG) HDL (test code = 46 mg/dL 40-60 N HDL) Chol/HDL (test code 3.2 Ratio 0.0-5.0 N = CHOLPHDL) LDL, Calculated 77 0-130 N (NOTE)RISK O F HEART (test code = LDLC) DISEASEPu blished by [place] Heart AssociationAnal yte Optim al Boderline Increased RiskC HOL <200 200-239 >240TRI G <150 150-199 >200HDL Male: >60 <40HDL Female: >60 <50 LDL < 100 130-15 9 >160 LDL NEAR OPTIMAL IS 100- 129 VLDL (test code = 22 mg/dL 5-40 N VLDL) LDL/HDL (test code = 2 LDLPHDL) Alcohol/Ethanol, [id number] 19:40:00 Test Item Value Reference Range Interpretation Comments Alcohol, Ethyl <0.01 g/dL 0.00-0.01 N Intoxicated 0.080 (test code = ETOH) g/dL or m ore Comprehensive Metabolic [id number] 12:38:00 Test Item Value Reference Range Interpretation Comments Sodium (test code = 140 mmol/L 135-145 N NA) Potassium (test 4.7 mmol/L 3.5-5.1 N code = K) Chloride (test code 99 mmol/L 98-105 N = CL) Carbon Dioxide 26 mmol/L 22-29 N (test code = CO2) Glucose (test code 91 mg/dL 70-115 N = GLU) Blood Urea Nitrogen 7 mg/dL 6-20 N (test code = BUN) Creatinine (test 0.7 mg/dL 0.7-1.2 N code = CREAT) Calcium (test code 9.6 mg/dL 8.3-10.5 N = CA) Prot Total (test 7.9 g/dL 6.4-8.3 N code = TP) Albumin (test code 4.7 g/dL 3.5-5.2 N = ALB) A/G Ratio (test 1.5 Ratio code = AGRATIO) Globulin (test code 3.2 2.9-3.1 H = GLOB) Bili Total (test 0.2 mg/dL 0.1-0.9 N code = TBIL) Alk Phos (test code 115 U/L 40-129 N = APHOS) AST (test code = 13 U/L 1-40 N AST) ALT (test code = 14 U/L 1-41 N ALT) BUN/Creatinine 10.0 Ratio (test code = BCRATIO) Anion Gap (test 15 mmol/L 7-16 N code = AGAP) Estimated GFR (test >60 eGFR (es timated code = GFR) mL/min/1.73m2 Glomerular Martínez tration Rate) is an est imated value,calculate d from the patient's s elma creatinine usin g the MDRD equation.I t is NOT the patient 's actual GFR. The eGFR provides a more clinicallyusefu l measure of kidn ey disease than se rum creatinine alone.This calculation kelle es sex and race into account, if the informationis provided. If th e race is not provided , and the patient isAfrican-Ameri can, multiply by 1.2 12. If sex is not prov ided, and thepatient is female, multipl y by 0.742. Results for patients <18 ye ars ofage have not been validated by th e MDRD study and mata d be interpretedwith caution.eGFR Re sult Interpretation: eGFR > or = 60 is in t he Normal RangeeGF R < 60 may mean kidney diseaseeGFR < 1 5 may mean kidney failureRange s recommended by the National Kidney Foundation,http ://nkd ep.nih.gov CBC with [id number] 12:12:00 Test Item Value Reference Range Interpretation Comments WBC (test code = WBC) 9.3 K/cumm 4.4-10.5 N RBC (test code = RBC) 5.15 M/cumm 4.10-5.70 N Hemoglobin (test code = HGB) 15.7 gm/dL 13.4-17.4 N Hematocrit (test code = HCT) 49.2 % 38.7-52.0 N MCV (test code = MCV) 95.6 fL 80-100 N MCH (test code = MCH) 30.5 pg 27.0-32.5 N MCHC (test code = MCHC) 31.9 g/dL 32.0-37.5 L RDW (test code = RDW) 13.0 % 11.5-14.5 N Platelet Count (test code = 307 K/cumm 140-440 N PLTCT) MPV (test code = MPV) 9.2 fL Diff Method (test code = DIFFM) Auto Neutrophil (test code = NEUT) 68.8 % 36-70 N Lymphocyte (test code = LYMPH) 24.9 % 12-44 N Monocyte (test code = MONO) 3.7 % 0-11 N Eosinophil (test code = EOS) 2.2 % 0-7 N Basophil (test code = BASO) 0.5 % 0-2 N Neutro Abs (test code = ANEUT) 6.4 K/cumm 1.6-7.4 N Lymph Abs (test code = ALYMPH) 2.3 K/cumm 0.5-4.6 N [place] Abs (test code = AMONO) 0.3 K/cumm 0.0-1.2 N Eos Abs (test code = AEOS) 0.20 K/cumm 0.00-0.74 N Baso Abs (test code = ABASO) 0.0 K/cumm 0.00-0.21 N [id number] 12:12:00 Test Item Value Reference Range Interpretation Comments Amphetamine (test code POSITIVE Negative A For d iagnostic purposes = AMPH) only, positive results should always b e assessedin conjunctionwith the patient's medic al history,clinica l examination and otherfindings.T o fulfill legal requirements, a more specific altern ate chemical method must be used inorder to obtain a Confirmed matty lytical result. GC/MS i s the preferred confi rmatory method. Barbiturates (test Negative Negative N code = NASIR) Benzodiazepine (test Negative Negative N code = EVETTE) Cocaine (test code = Negative Negative N COCA) Methadone (test code = Negative Negative N MTHD) Opiates (test code = Negative Negative N OPIA) PCP (test code = PCP) Negative Negative N Propoxyphene (test Negative Negative N code = PROPOX) THC (test code = THC) POSITIVE Negative A Urinalysis [id number] 11:46:00 Test Item Value Reference Range Interpretation Comments Color (test code = COLOR) Yellow Yellow,Straw,Pl N yellow Clarity (test code = Clear Clear N CLAR) Specific Alexander (test 1.020 1.001-1.035 N code = SPGR) pH (test code = PH) 6.5 5.0-9.0 N Ketone (test code = KET) Negative mg/dL Negative N Glucose (test code = Negative mg/dL Negative N GLUCUR) Protein (test code = Negative mg/dL Negative N PROT) Bilirubin (test code = Negative mg/dL Negative N BILI) Occult Blood (test code = Negative Negative N UDOB) Urobilinogen (test code = 0.2 mg/dL 0.2-1.0 N UROB) Nitrite (test code = NIT) Negative Negative N Leuk Esterase (test code Negative Negative N = LEUK) Micros Exam (test code = Not indicated MEXAM)
--- NOTE | 2021-04-06 11:18 | RAD REPORT ---
EXAM DESCRIPTION: RAD - Hand Right 3 View - 04/06/2021 11:10 am CLINICAL HISTORY: Right hand pain status post injury FINDINGS: No acute fracture is seen. Old fracture fifth metacarpal Posterior subluxation of the fifth distal phalanx.
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
[2021-04-06 11:51] VITALS: BP 128/73; TEMP 98.2; O2SAT 100
== END 2021-04-06 11:45 | disposition home or self-care (01) ==
LOC: ER 09:39
DX: S61.212A Laceration without foreign body of right middle finger without damage to nail, initial encounter (principal); S61.210A Laceration without foreign body of right index finger without damage to nail, initial encounter; S61.214A Laceration without foreign body of right ring finger without damage to nail, initial encounter; W26.0XXA Contact with knife, initial encounter; Y93.9 Activity, unspecified; Y92.009 Unspecified place in unspecified non-institutional (private) residence as the place of occurrence of the external cause; Z23 Encounter for immunization; Z59.0 Homelessness; F15.90 Other stimulant use, unspecified, uncomplicated
CPT/HCPCS: 90471; 90714; 99283

== ENCOUNTER → 2023-09-22 | Emergency (ER) | payer OTHER ==
[~2023-09-22] MED LIST: CEFTRIAXONE 1000 MG/VIAL ONE; LIDOCAINE 1% MPF 2 ML AMPULE ONE; dexAMETHasone 10 MG/ML VIAL ONE
--- NOTE | 2023-09-22 04:26 | EDPHYS ---
Physician Documentation [facility] Name: Kana Galdamez Age: 32 yrs Sex: Male : 1990 Arrival Date: 09/22/2023 Time: 02:03 Bed 11 Private MD: NEELAM Physician Amilcar Singer HPI: 09/22 03:00 This 32 yrs old Male presents to ER via Ambulatory with complaints of Swollen Glands, cp Fever. 03:00 The patient presents with sore throat. The patient describes throat pain as constant. cp Onset: The symptoms/episode began/occurred yesterday, and became worse today. 03:00 Severity of symptoms: in the emergency department the symptoms are unchanged, despite cp home interventions. Associated signs and symptoms: Pertinent positives: fever, Pertinent negatives cough, flu-like symptoms, vomiting. Historical: - Allergies: 02:49 OPIATES; vc1 - PMHx: 02:49 ADD/ADHD; Asthma; Bipolar disorder; Depression; drug abuse; HEARING IMPAIRED; homeless; vc1 suicidal attempts-multiple; suicidal ideation; - PSHx: 02:49 None; vc1 - Immunization history:: Client reports having NOT received the Covid vaccine. Flu vaccine is not up to date. - Social history:: Smoking status: Reported history of juuling and/or vaping. Patient/guardian denies using street drugs. ROS: 03:05 Constitutional: Negative for body aches, chills, fever, poor PO intake, cp 03:05 Eyes: Negative for injury, pain, redness, and discharge, cp 03:05 ENT: Positive for sore throat, Negative for drainage from ear(s), ear pain, difficulty swallowing, difficulty handling secretions, 03:05 Respiratory: Negative for cough, shortness of breath, wheezing, 03:05 Abdomen/GI: Negative for abdominal pain, vomiting, diarrhea, constipation, 03:05 Skin: Negative for rash, 03:05 Neuro: Negative for altered mental status, dizziness, headache, weakness, 03:05 All other systems are negative, Exam: 03:10 Constitutional: The patient appears in no acute distress, alert, awake, non-toxic, well cp developed, well nourished, 03:10 Head/Face: Normocephalic, atraumatic. cp 03:10 Eyes: Periorbital structures: appear normal, Conjunctiva: normal, no exudate, no injection, Sclera: no appreciated abnormality, Lids and lashes: appear normal, bilaterally, 03:10 ENT: External ear(s): are unremarkable, Ear canal(s): are normal, clear, TM's: dullness, bilaterally, Nose: is normal, Mouth: Lips: moist, Oral mucosa: pink and intact, moist, Posterior pharynx: Airway: no evidence of obstruction, patent, Tonsils: bilaterally enlarged, with erythema, with exudate, left worse than right, Uvula: midline, non-edematous, erythema, that is moderate, exudate, that is moderate, Voice: is normal, 03:10 Neck: ROM/movement: Meningeal signs: are not present, Lymph nodes: lymphadenopathy is appreciated, anterior cervical nodes, 03:10 Chest/axilla: Inspection: normal, 03:10 Cardiovascular: Rate: tachycardic, 03:10 Respiratory: the patient does not display signs of respiratory distress, Respirations: normal, no use of accessory muscles, no retractions, labored breathing, is not present, Breath sounds: are clear throughout, no decreased breath sounds, no stridor, no wheezing, 03:10 Abdomen/GI: Exam negative for discomfort, distension, guarding, Inspection: abdomen appears normal, Vital Signs: 03:00 BP 132 / 74; Pulse 102; Resp 16; Temp 98.8; Pulse Ox 100% ; vc1 MDM: 02:50 Patient medically screened. 03:00 Differential diagnosis: apthous stomatitis, group A strep tonsillitis, mononucleosis, cp peritonsillar abscess pharyngitis, retropharyngeal abcess. 04:25 Data reviewed: vital signs, nurses notes, lab test result(s), and as a result, I will cp discharge patient. 04:25 I considered the following discharge prescriptions or medication management in the emergency department Medications were administered in the Emergency Department. See MAR. Counseling: I had a detailed discussion with the patient and/or guardian regarding the historical points, exam findings, and any diagnostic results supporting the discharge/admit diagnosis, lab results, to return to the emergency department if symptoms worsen or persist or if there are any questions or concerns that arise at home. Response to treatment: the patient's symptoms have mildly improved after treatment, and as a result, I will discharge patient. 09/22 02:51 Order name: Strep cp 09/22 03:23 Order name: Throat Culture EDMS Administered Medications: No medications were administered Disposition Summary: 09/22/23 04:26 Discharge Ordered Notes: Location: Home cp Problem: new cp Symptoms: have improved cp Condition: Stable cp Diagnosis - Acute tonsillitis, unspecified cp Followup: cp - With: Private Physician - When: 2 - 3 days - Reason: Worsening of condition Discharge Instructions: - Discharge Summary Sheet cp - Tonsillitis cp Forms: - Medication Reconciliation Form cp - Thank You Letter cp - Antibiotic Education cp - Prescription Opioid Use cp - Patient Portal Instructions cp - Leadership Thank You Letter cp Prescriptions: - Clindamycin HCl 300 mg Oral Capsule - take 1 capsule ORAL route every 6 hours for 10 days; 40 capsule; Refills: 0, cp Product Selection Permitted - Ibuprofen 800 mg Oral Tablet - take 1 tablet ORAL route every 8 hours As needed take with food; 30 tablet; cp Refills: 0, Product Selection Permitted Signatures: Dispatcher [employer] EDMS Amilcar Grimaldo PA PA cp Calcote, Vanessa, RN RN vc1
--- NOTE | 2023-09-22 04:26 | ER ---
Nurse's Notes [facility] Name: Kana Galdamez Age: 32 yrs Sex: Male : 1990 Arrival Date: 09/22/2023 Time: 02:03 Bed 11 Private MD: Diagnosis: Acute tonsillitis, unspecified Presentation: 09/22 02:47 Chief complaint: Spouse and/or significant other states: swollen tonsil left. Fever vc1 yesterday, no cough. Coronavirus screen: Vaccine status: Patient reports being unvaccinated. Client denies travel out of the [place] in the last 14 days. fever, sore throat, Client presents with at least one sign or symptom that may indicate coronavirus-19. Ebola Screen: Patient negative for fever greater than or equal to 101.5 degrees Fahrenheit, and additional compatible Ebola Virus Disease symptoms Patient denies exposure to infectious person. Patient denies travel to an Ebola-affected area in the 21 days before illness onset. No symptoms or risks identified at this time. Initial Sepsis Screen: Does the patient have a suspected source of infection? No. Patient's initial sepsis screen is negative. Risk Assessment: Do you want to hurt yourself or someone else? Patient reports no desire to harm self or others. Onset of symptoms was September 20, 2023. 02:47 Method Of Arrival: Ambulatory vc1 02:47 Acuity: RHETT 4 vc1 04:58 Initial Sepsis Screen: Does the patient meet any 2 criteria? No. Patient's initial vc1 sepsis screen is negative. Triage Assessment: 05:02 General: Appears in no apparent distress. uncomfortable, ill, slender, Behavior is vc1 calm, cooperative, appropriate for age. Pain: Complains of pain in left aspect of posterior pharynx Pain does not radiate. Pain currently is 10 out of 10 on a pain scale. Quality of pain is described as sharp, Aggravated by eating, drinking, Noted to be grimacing. EENT: Throat has patchy exudate has enlarged tonsils on left with gag reflex present, Reports pain when swallowing. EENT: Reports hearing impaired with cochlear implant. Neuro: Level of Consciousness is awake, alert, obeys commands, Oriented to person, place, time, situation, Appropriate for age. Cardiovascular: No deficits noted. Respiratory: Airway is patent Respiratory effort is even, unlabored, Respiratory pattern is regular, symmetrical. GI: No deficits noted. No signs and/or symptoms were reported involving the gastrointestinal system. : No deficits noted. No signs and/or symptoms were reported regarding the genitourinary system. Derm: No deficits noted. No signs and/or symptoms reported regarding the dermatologic system. Musculoskeletal: No deficits noted. No signs and/or symptoms reported regarding the musculoskeletal system. Historical: - Allergies: 02:49 OPIATES; vc1 - PMHx: 02:49 ADD/ADHD; Asthma; Bipolar disorder; Depression; drug abuse; HEARING IMPAIRED; homeless; vc1 suicidal attempts-multiple; suicidal ideation; - PSHx: 02:49 None; vc1 - Immunization history:: Client reports having NOT received the Covid vaccine. Flu vaccine is not up to date. - Social history:: Smoking status: Reported history of juuling and/or vaping. Patient/guardian denies using street drugs. Screenin:50 [facility] ED Fall Risk Assessment (Adult) History of falling in the last 3 months, vc1 including since admission No falls in past 3 months (0 pts) Confusion or Disorientation No (0 pts) Intoxicated or Sedated No (0 pts) Impaired Gait No (0 pts) Mobility Assist Device Used No (0 pt) Altered Elimination No (0 pt) Score/Fall Risk Level 0 - 2 = Low Risk Oriented to surroundings, Maintained a safe environment, Educated pt \T\ family on fall prevention, incl call for assistance when getting out of bed. Abuse screen: Denies threats or abuse. Nutritional screening: No deficits noted. Tuberculosis screening: No symptoms or risk factors identified. Vital Signs: 03:00 BP 132 / 74; Pulse 102; Resp 16; Temp 98.8; Pulse Ox 100% ; vc1 ED Course: 02:08 Patient arrived in ED. gm2 02:14 Amilcar Grimaldo PA is PHCP. cp 02:14 Amilcar Singer MD is Attending Physician. cp 02:49 Triage completed. vc1 02:50 Arm band placed on right wrist. vc1 04:58 Patient has correct armband on for positive identification. Bed in low position. Pulse vc1 ox on. NIBP on. 04:58 No provider procedures requiring assistance completed. Patient did not have IV access vc1 during this emergency room visit. Administered Medications: No medications were administered Medication: 05:01 VIS not applicable for this client. vc1 Outcome: 04:26 Discharge ordered by . eduardo 05:03 Discharged to home ambulatory, with significant other, vc1 05:03 Condition: good 05:03 Discharge instructions given to patient, Instructed on discharge instructions, follow up and referral plans. medication usage, Demonstrated understanding of instructions, follow-up care, medications, Prescriptions given X 2, 05:04 Patient left the ED. vc1 Signatures: Amilcar Grimaldo PA PA cp Calcote, Vanessa RN RN vc1 Christina Daniel 2
[2023-09-22 05:25] VITALS: BP 132/74; TEMP 98.8; O2SAT 100
== END ==
LOC: ER 02:03
DX: J03.90 Acute tonsillitis, unspecified (principal); Z59.00 Homelessness unspecified; Z88.5 Allergy status to narcotic agent; Z28.310 Unvaccinated for COVID-19
CPT/HCPCS: 87070; 87081; J1100; J0696; 99283

== ENCOUNTER 2024-01-02 13:04 | Emergency (ER) | payer OTHER ==
[2024-01-02 14:15] LABS: Absolute Eosinophils 0.2 K/uL (0-0.5); Absolute Lymphocytes (CBC) 1.8 K/uL (0.7-4.9); Absolute Monocytes 0.3 K/uL (0.1-1.3); Absolute Neutrophil 1.8 K/uL (1.8-8.0); Basophils % 1.1 % (0-1.3); Eosinophils % 5.2 % (0-4.4); Hematocrit 43.9 % (39.6-49.0); Lymphocytes % 43.9 % (15.3-44.8); MCH 30.6 pg (27.0-35.0); MCHC 34.1 g/dL (32.0-36.0); MCV 89.6 fL (80-100); MPV 8.3 fL (7.6-11.3); Monocytes % 6.2 % (3.3-12.3); Neutrophils % 43.6 % (41.7-73.7); Platelets 277 thou/uL (152-406); Red Cell Distribution Width 13.1 % (12.1-15.2)
--- NOTE | 2024-01-02 14:59 | EDPHYS ---
Physician Documentation [facility] Name: Kana Galdamez Age: 33 yrs Sex: Male : 1990 Arrival Date: 01/02/2024 Time: 13:04 Bed 25 Private MD: ED Physician Amilcar Singer HPI: 01/01 15:00 This 33 yrs old Male presents to ER via Ambulatory with complaints of Skin Problem. kb 15:00 Pt is a 33 year old male who presents for possible parasites. States he has noticed kb white worms on his skin and some parasites that nacho under his skin. Came in today because he pulled a white worm from his cat so he believes that is where he is getting the parasites. Complains of itching. Also reports blood in his stool for 2 years. . Historical: - Allergies: 13:26 OPIATES; ap3 13:26 ACETAMINOPHEN; ap3 - PMHx: 13:26 ADD/ADHD; Asthma; Bipolar disorder; Depression; drug abuse; HEARING IMPAIRED; homeless; ap3 suicidal attempts-multiple; suicidal ideation; - Immunization history:: Client reports having NOT received the Covid vaccine. - Infectious Disease History:: Denies. - Social history:: Smoking status: Reported history of juuling and/or vaping. ROS: 14:58 Constitutional: As per HPI kb Exam: 14:58 Constitutional: This is a well developed, well nourished patient who is awake, alert, kb and in no acute distress. Head/Face: Normocephalic, atraumatic. ENT: Moist Mucous membranes Cardiovascular: Regular rate Respiratory: Respirations even and unlabored. No increased work of breathing. Talking in full sentences Abdomen/GI: Soft, non-tender. No distention Skin: Warm, dry with normal turgor. Normal color. MS/ Extremity: Pulses equal, no cyanosis. Neurovascular intact. Full, normal range of motion. Neuro: Awake and alert, GCS 15, oriented to person, place, time, and situation. Moves all extremities. Normal gait. Vital Signs: 13:24 BP 142 / 87; Pulse 85; Resp 18; Temp 98.4; Pulse Ox 100% ; Weight 68.04 kg; ap3 MDM: 13:09 Patient medically screened. kb 14:59 Differential diagnosis: scabies, parasite, gi bleed. Data reviewed: vital signs, nurses kb notes. Consideration of Admission/Observation Escalation of care including admission/observation considered. admission considered but pt reports he has had blood in stool for 2 years and has no abd pain or tenderness. Pt educated to follow up with GI for further evaluation. Test considered but Not performed: CT: ct considered but pt has no abd pain or tenderness. Historians other than the Patient: Spouse/Significant Other: significant other. Counseling: I had a detailed discussion with the patient and/or guardian regarding the historical points, exam findings, and any diagnostic results supporting the discharge/admit diagnosis, lab results, the need for outpatient follow up, a spanish linguist, to return to the emergency department if symptoms worsen or persist or if there are any questions or concerns that arise at home. 15:03 ED course: Pt brought in "white worm" that was pulled from cat today. Appears to be a kb white string. . 01/01 13:27 Order name: CBC with Diff; Complete Time: 14:26 kb Administered Medications: No medications were administered Disposition Summary: 01/02/24 14:57 Discharge Ordered Notes: Location: Home kb Condition: Stable kb Diagnosis - GI Bleed/ Gastrointestinal hemorrhage, unspecified kb Followup: kb - With: Emergency Department - When: As needed - Reason: Worsening of condition Followup: kb - With: Private Physician - When: 2 - 3 days - Reason: Recheck today's complaints, Continuance of care, Re-evaluation by your physician Discharge Instructions: - Discharge Summary Sheet kb - Rectal Bleeding, [id number] kb - Scabies, Adult kb Forms: - Medication Reconciliation Form kb - Antibiotic Education kb - Prescription Opioid Use kb - Patient Portal Instructions kb - Leadership Thank You Letter kb Prescriptions: - Elimite 5 % Topical Cream - apply 1 application TOPICAL route one time Wash after 12 hours.; 60 gram; kb Refills: 0, Product Selection Permitted Signatures: Dispatcher [employer] Monisha Lanza FNP-C FNP-Nighat Ramsay Amanda, RN RN ap3 Corrections: (The following items were deleted from the chart) 13:27 13:27 CBC+H.LAB.BRZ ordered. EDMS EDMS 13:27 13:27 COMPREHENSIVE METABOLIC PANEL+C.LAB.BRZ ordered. EDMS EDMS 15:00 14:20 Labs - recollect needed ordered. bd cm10
--- NOTE | 2024-01-02 14:59 | ER ---
Nurse's Notes [facility] Name: Kana Galdamez Age: 33 yrs Sex: Male : 1990 Arrival Date: 01/02/2024 Time: 13:04 Bed 25 Private MD: Diagnosis: GI Bleed/ Gastrointestinal hemorrhage, unspecified Presentation: 01/01 13:24 Chief complaint: Patient states: he has a parasite problem and has found worms in his ap3 body under his skin. patient also reports blood stool for approx 2 years. Coronavirus screen: At this time, the client does not indicate any symptoms associated with coronavirus-19. Ebola Screen: No symptoms or risks identified at this time. Initial Sepsis Screen: Does the patient meet any 2 criteria? No. Patient's initial sepsis screen is negative. Does the patient have a suspected source of infection? No. Patient's initial sepsis screen is negative. Risk Assessment: Do you want to hurt yourself or someone else? Patient reports no desire to harm self or others. Onset of symptoms is unknown. 13:24 Method Of Arrival: Ambulatory ap3 13:24 Acuity: RHETT 3 ap3 Triage Assessment: 13:26 General: Appears in no apparent distress. Behavior is appropriate for age. Pain: Denies ap3 pain. Neuro: Level of Consciousness is awake, alert, obeys commands, Oriented to person, place, time, situation. Cardiovascular: Patient's skin is warm and dry. Respiratory: Airway is patent Respiratory effort is even, unlabored, Respiratory pattern is regular, symmetrical. GI: Reports rectal bleeding, bloody stool. Derm: Reports parasite in skin. Historical: - Allergies: 13:26 OPIATES; ap3 13:26 ACETAMINOPHEN; ap3 - PMHx: 13:26 ADD/ADHD; Asthma; Bipolar disorder; Depression; drug abuse; HEARING IMPAIRED; homeless; ap3 suicidal attempts-multiple; suicidal ideation; - Immunization history:: Client reports having NOT received the Covid vaccine. - Infectious Disease History:: Denies. - Social history:: Smoking status: Reported history of juuling and/or vaping. Screenin:27 Abuse screen: Denies threats or abuse. Nutritional screening: No deficits noted. ap3 Tuberculosis screening: No symptoms or risk factors identified. 15:07 [facility] ED Fall Risk Assessment (Adult) History of falling in the last 3 months, cm10 including since admission No falls in past 3 months (0 pts) Confusion or Disorientation No (0 pts) Intoxicated or Sedated No (0 pts) Impaired Gait No (0 pts) Mobility Assist Device Used No (0 pt) Altered Elimination No (0 pt) Score/Fall Risk Level 0 - 2 = Low Risk Oriented to surroundings, Maintained a safe environment, Hourly rounding (assess needs \T\ fall precautionary measures) done. Vital Signs: 13:24 BP 142 / 87; Pulse 85; Resp 18; Temp 98.4; Pulse Ox 100% ; Weight 68.04 kg; ap3 ED Course: 13:06 Patient arrived in ED. mr 13:09 [facility]C [facility] kb 13:09 Amilcar Singer MD is Attending Physician. kb 13:26 Triage completed. ap3 13:27 Arm band placed on left wrist. ap3 14:02 CMP Sent. jg11 14:02 CBC with Diff Sent. jg11 14:02 Initial lab(s) drawn, by me, sent to lab. Missed attempt(s): 22 gauge in left jg11 antecubital area. Bleeding controlled, band aid applied, catheter tip intact. 15:00 Tricia Mix, GUSTABO is Primary Nurse. cm10 15:07 Patient has correct armband on for positive identification. Provided Education on: cm10 Follow-up instructions. 15:08 No provider procedures requiring assistance completed. Pt called to come back to have cm10 IV removed and patient states that no IV was left in his arm. Administered Medications: No medications were administered Medication: 15:07 VIS not applicable for this client. cm10 Outcome: 14:57 Discharge ordered by . alina 15:11 Discharged to home ambulatory, with friend, cmYunier 15:11 Condition: good 15:11 Discharge instructions given to patient, Instructed on discharge instructions, follow up and referral plans. medication usage, Demonstrated understanding of instructions, follow-up care, medications, Prescriptions given X 1, 15:12 Patient left the ED. cm10 Signatures: Monisha Matute FNP-C FNP-Elisabeth Chan, Reg Reg mr Elidia Levi RN RN ap3 Tricia Mix, GUSTABO MONTEJO cm10 Hood Hernandez jg11
[2024-01-02 16:07] VITALS: BP 142/87; TEMP 98.4; O2SAT 100
== END 2024-01-02 15:12 | disposition home or self-care (01) ==
LOC: ER 13:04
DX: K92.2 Gastrointestinal hemorrhage, unspecified (principal)
CPT/HCPCS: 85025; 99283

== ENCOUNTER 2024-01-24 03:15 | Emergency (ER) | payer OTHER ==
[2024-01-24 04:04] LABS: SARS-CoV-2 Antigen CONTROL BLUE LINE VIS/BG OK; SARS-CoV-2 Antigen Rapid Res Negative (Negative)
--- NOTE | 2024-01-24 04:12 | EDPHYS ---
Physician Documentation [facility] Name: Kana Galdamez Age: 33 yrs Sex: Male : 1990 Arrival Date: 01/24/2024 Time: 03:15 Bed 6 Private MD: ED Physician Chrissy Clancy HPI: 01/23 03:41 This 33 yrs old Male presents to ER via Ambulatory with complaints of Sore Throat, sp3 Mouth Problem. 03:41 33-year-old male with a history of bipolar disease, drug abuse, depression, ADHD, sp3 asthma now presents to the ED with chief complaint mouth sores, sore throat and "white hairs that are growing out of my skin that look like cotton". Patient denies any fever, headache, chest pain, shortness of breath, cough, abdominal pain, vomiting, diarrhea, or any other signs or symptoms on ROS at this time.. Historical: - Allergies: 03:25 ACETAMINOPHEN; ss 03:25 OPIATES; ss - PMHx: 03:25 ADD/ADHD; Asthma; Bipolar disorder; Depression; drug abuse; HEARING IMPAIRED; homeless; ss suicidal attempts-multiple; suicidal ideation; - Immunization history:: Client reports having NOT received the Covid vaccine. - Infectious Disease History:: Denies. - Social history:: Smoking status: Patient denies any tobacco usage or history of. ROS: 03:42 Constitutional: Negative for fever, chills, and weight loss, Eyes: Negative for injury, sp3 pain, redness, and discharge, Neck: Negative for injury, pain, and swelling, Cardiovascular: Negative for chest pain, palpitations, and edema, Respiratory: Negative for shortness of breath, cough, wheezing, and pleuritic chest pain, Abdomen/GI: Negative for abdominal pain, nausea, vomiting, diarrhea, and constipation, Back: Negative for injury and pain, MS/Extremity: Negative for injury and deformity, Neuro: Negative for headache, weakness, numbness, tingling, and seizure, Psych: Negative for depression, anxiety, suicide ideation, homicidal ideation, and hallucinations, Allergy/Immunology: Negative for hives, rash, and allergies, Endocrine: Negative for neck swelling, polydipsia, polyuria, polyphagia, and marked weight changes, Hematologic/Lymphatic: Negative for swollen nodes, abnormal bleeding, and unusual bruising, 03:42 All other systems are negative, Exam: 03:42 Constitutional: This is a well developed, well nourished patient who is awake, alert, sp3 and in no acute distress. Head/Face: Normocephalic, atraumatic. Eyes: Pupils equal round and reactive to light, extra-ocular motions intact. Lids and lashes normal. Conjunctiva and sclera are non-icteric and not injected. Cornea within normal limits. Periorbital areas with no swelling, redness, or edema. Neck: Trachea midline, no thyromegaly or masses palpated, and no cervical lymphadenopathy. Supple, full range of motion without nuchal rigidity, or vertebral point tenderness. No Meningismus. Chest/axilla: Normal chest wall appearance and motion. Nontender with no deformity. No lesions are appreciated. Cardiovascular: Regular rate and rhythm with a normal S1 and S2. No gallops, murmurs, or rubs. Normal PMI, no JVD. No pulse deficits. Respiratory: Lungs have equal breath sounds bilaterally, clear to auscultation and percussion. No rales, rhonchi or wheezes noted. No increased work of breathing, no retractions or nasal flaring. Abdomen/GI: Soft, non-tender, with normal bowel sounds. No distension or tympany. No guarding or rebound. No evidence of tenderness throughout. Back: No spinal tenderness. No costovertebral tenderness. Full range of motion. Skin: Warm, dry with normal turgor. Normal color with no rashes, no lesions, and no evidence of cellulitis. MS/ Extremity: Pulses equal, no cyanosis. Neurovascular intact. Full, normal range of motion. Neuro: Awake and alert, GCS 15, oriented to person, place, time, and situation. Cranial nerves II-XII grossly intact. Motor strength 5/5 in all extremities. Sensory grossly intact. Cerebellar exam normal. Normal gait. 03:42 ENT: Patient with mild erythema in the posterior oropharynx and multiple vesicles in the mouth consistent with possible coxsackie versus other viral illness.. Vital Signs: 03:23 Weight 61.23 kg; Height 5 ft. 8 in. ; Pain 3/10; ss 03:24 BP 139 / 92; Pulse 81; Resp 17 S; Temp 98.1(O); Pulse Ox 100% on R/A; ha1 04:18 BP 133 / 91; Pulse 84; Resp 17; Pulse Ox 99% on R/A; ha1 03:23 Body Mass Index 20.53 (61.23 kg, 172.72 cm) ss 03:23 Pain Scale: Adult ss MDM: 03:31 Patient medically screened. sp3 03:42 Data reviewed: vital signs, nurses notes, lab test result(s). ED course: 33-year-old sp3 male with PMH above now with sore throat and vague symptoms. Differential diagnosis includes strep pharyngitis, other viral process including influenza, COVID-19, coxsackievirus, side effects of drug use, among others. Patient is not septic and in no acute distress. Workup will include swabs and if negative discharge patient home with general precautions and PCP follow-up. . 04:11 ED course: All swabs are negative. We will discharge patient home with viral illness sp3 diagnosis.. 01/23 03:32 Order name: Strep sp3 01/23 03:32 Order name: Flu; Complete Time: 04:11 sp3 01/23 03:32 Order name: SARS RAPID; Complete Time: 04:11 sp3 01/23 04:01 Order name: Throat Culture EDMS Administered Medications: No medications were administered Disposition Summary: 01/24/24 04:12 Discharge Ordered Notes: Location: Home sp3 Condition: Stable sp3 Diagnosis - Viral illness, mouth sores sp3 Followup: sp3 - With: Private Physician - When: Upon discharge from the Emergency Department - Reason: Continuance of care Discharge Instructions: - Discharge Summary Sheet sp3 - Viral Illness, Adult sp3 Forms: - Medication Reconciliation Form sp3 - Antibiotic Education sp3 - Prescription Opioid Use sp3 - Patient Portal Instructions sp3 - Leadership Thank You Letter sp3 Signatures: Dispatcher [employer] EDMS Kadie Cooper RN RN Chrissy Duke MD MD sp3 Corrections: (The following items were deleted from the chart) 03:32 03:32 Group A Streptococcus Rapid Sc+BA.LAB.BRZ ordered. EDMS EDMS 03:32 03:32 Influenza Screen (A \\T\\ B)+BA.LAB.BRZ ordered. EDMS EDMS 03:32 03:32 SARS-COV-2 Antigen Rapid+I.LAB.BRZ ordered. EDMS EDMS
--- NOTE | 2024-01-24 04:12 | ER ---
Nurse's Notes [facility] Name: Kana Galdamez Age: 33 yrs Sex: Male : 1990 Arrival Date: 01/24/2024 Time: 03:15 Bed 6 Private MD: Diagnosis: Viral illness, mouth sores Presentation: 01/23 03:23 Chief complaint: Patient states: Sore throat, sores on corner of mouth and "little ss white hairs that comes straight out of skin that are like cotton", since yesterday. Coronavirus screen: Client denies travel out of the [place] in the last 14 days. Ebola Screen: Patient denies exposure to infectious person. Patient denies travel to an Ebola-affected area in the 21 days before illness onset. Initial Sepsis Screen: Does the patient meet any 2 criteria? No. Patient's initial sepsis screen is negative. Does the patient have a suspected source of infection? No. Patient's initial sepsis screen is negative. Risk Assessment: Do you want to hurt yourself or someone else? Patient reports no desire to harm self or others. Onset of symptoms was January 21, 2024. 03:23 Method Of Arrival: Ambulatory ss 03:23 Acuity: RHETT 4 ss Triage Assessment: 03:25 General: Appears in no apparent distress. comfortable, Behavior is calm, cooperative. ss Neuro: Level of Consciousness is awake, alert, obeys commands, Oriented to person, place, time, situation. Derm: Skin is pink, warm \\T\\ dry. Historical: - Allergies: 03:25 ACETAMINOPHEN; ss 03:25 OPIATES; ss - PMHx: 03:25 ADD/ADHD; Asthma; Bipolar disorder; Depression; drug abuse; HEARING IMPAIRED; homeless; ss suicidal attempts-multiple; suicidal ideation; - Immunization history:: Client reports having NOT received the Covid vaccine. - Infectious Disease History:: Denies. - Social history:: Smoking status: Patient denies any tobacco usage or history of. Screenin:24 [facility] ED Fall Risk Assessment (Adult) History of falling in the last 3 months, ha1 including since admission No falls in past 3 months (0 pts) Confusion or Disorientation No (0 pts) Intoxicated or Sedated No (0 pts) Impaired Gait No (0 pts) Mobility Assist Device Used No (0 pt) Altered Elimination No (0 pt) Score/Fall Risk Level 0 - 2 = Low Risk Oriented to surroundings, Maintained a safe environment, Educated pt \\T\\ family on fall prevention, incl call for assistance when getting out of bed, Hourly rounding (assess needs \\T\\ fall precautionary measures) done. Abuse screen: Denies threats or abuse. Denies injuries from another. Nutritional screening: No deficits noted. Tuberculosis screening: No symptoms or risk factors identified. Assessment: 03:18 General: Appears comfortable, Behavior is cooperative. Pain: Complains of pain in sore ha1 throat Pain does not radiate. Pain currently is 3 out of 10 on a pain scale. Quality of pain is described as burning, aching. Neuro: Level of Consciousness is awake, alert, obeys commands, Oriented to person, place, time, situation. Cardiovascular: Capillary refill < 3 seconds Patient's skin is warm and dry. Respiratory: Airway is patent Respiratory effort is even, unlabored, Respiratory pattern is regular, symmetrical. GI: No signs and/or symptoms were reported involving the gastrointestinal system. EENT: Throat is reddened Reports sore throat . Derm: Skin is pink, warm \\T\\ dry. Musculoskeletal: Circulation, motion, and sensation intact. Range of motion: intact in all extremities. 04:18 Reassessment: Patient and/or family updated on plan of care and expected duration. Pain ha1 level reassessed. Patient is alert, oriented x 3, equal unlabored respirations, skin warm/dry/pink. Vital Signs: 03:23 Weight 61.23 kg; Height 5 ft. 8 in. ; Pain 3/10; ss 03:24 BP 139 / 92; Pulse 81; Resp 17 S; Temp 98.1(O); Pulse Ox 100% on R/A; ha1 04:18 BP 133 / 91; Pulse 84; Resp 17; Pulse Ox 99% on R/A; ha1 03:23 Body Mass Index 20.53 (61.23 kg, 172.72 cm) ss 03:23 Pain Scale: Adult ss ED Course: 03:17 Patient arrived in ED. gm2 03:18 Patient has correct armband on for positive identification. Bed in low position. Call ha1 light in reach. Side rails up X 1. 03:22 Chrissy Clancy MD is Attending Physician. sp3 03:25 Triage completed. ss 03:25 Arm band placed on right wrist. 04:23 Provided Education on: discharge instructions.. jb4 04:23 No provider procedures requiring assistance completed. Patient did not have IV access jb4 during this emergency room visit. Administered Medications: No medications were administered Medication: 04:19 VIS not applicable for this client. ha1 Outcome: 04:12 Discharge ordered by . sp3 04:23 Discharged to home ambulatory, jb4 04:23 Condition: stable 04:23 Discharge instructions given to patient, Instructed on discharge instructions, follow up and referral plans. Demonstrated understanding of instructions, follow-up care, 04:23 Patient left the ED. jb4 Signatures: Kadie Cooper RN RN Pavan Calderón RN RN jb4 Chrissy Clancy MD MD sp3 Priscilla Kolb RN RN ha1 Christina Daniel 2
[2024-01-24 04:37] VITALS: BP 133/91; TEMP 98.1; O2SAT 99
== END 2024-01-24 04:23 | disposition home or self-care (01) ==
LOC: ER 03:15
DX: B34.9 Viral infection, unspecified (principal); K13.79 Other lesions of oral mucosa; J45.909 Unspecified asthma, uncomplicated; F31.9 Bipolar disorder, unspecified; F90.9 Attention-deficit hyperactivity disorder, unspecified type; Z59.00 Homelessness unspecified; Z88.5 Allergy status to narcotic agent; Z88.8 Allergy status to other drugs, medicaments and biological substances
CPT/HCPCS: 36415; 87070; 87081; 87804; 87811; 99282

== ENCOUNTER 2024-07-23 01:59 | Emergency (ER) | payer OTHER ==
[2024-07-23] MEDS ORDERED: IBUPROFEN 400 MG TAB ONE (02:35)
--- NOTE | 2024-07-23 02:51 | ER ---
Nurse's Notes [facility] Name: Kana Galdamez Age: 33 yrs Sex: Male : 1990 Arrival Date: 07/23/2024 Time: 01:59 Bed 6 Private MD: Diagnosis: Acute maxillary sinusitis, unspecified;Acute frontal sinusitis, unspecified Presentation: 07/23 02:25 Chief complaint: Patient states: c/o nasal congestion, sinus drainage, headache, neck al5 pain, back pain, and memory fog x1 week, progressively worse in past 3 days. Coronavirus screen: congestion, cough unrelated to allergies, headache, runny nose, sinus drainage. Ebola Screen: No symptoms or risks identified at this time. Initial Sepsis Screen: Does the patient meet any 2 criteria? No. Patient's initial sepsis screen is negative. Does the patient have a suspected source of infection? No. Patient's initial sepsis screen is negative. Risk Assessment: Do you want to hurt yourself or someone else? Patient reports no desire to harm self or others. Onset of symptoms was July 16, 2024. 02:25 Method Of Arrival: Ambulatory al5 02:25 Acuity: RHETT 4 al5 Triage Assessment: 02:28 General: Appears in no apparent distress. uncomfortable, Behavior is calm, cooperative. al5 Pain: Complains of pain in head, neck and back. EENT: Reports nasal congestion nasal discharge headache, sinus drainage, neck pain, back pain, memory fog. Neuro: Level of Consciousness is awake, alert, obeys commands, Oriented to person, place, time, situation. Cardiovascular: Capillary refill < 3 seconds Patient's skin is warm and dry. Respiratory: Airway is patent Respiratory effort is even, unlabored, Respiratory pattern is regular, symmetrical. GI: No signs and/or symptoms were reported involving the gastrointestinal system. : No signs and/or symptoms were reported regarding the genitourinary system. Derm: Skin is intact, is healthy with good turgor, Skin is pink, warm \T\ dry. normal. Musculoskeletal: No signs and/or symptoms reported regarding the musculoskeletal system. Historical: - Allergies: 02:27 ACETAMINOPHEN; al5 02:27 OPIATES; al5 - PMHx: 02:27 ADD/ADHD; Asthma; Bipolar disorder; Depression; drug abuse; HEARING IMPAIRED; homeless; al5 suicidal attempts-multiple; suicidal ideation; - PSHx: 02:27 cochlear implant (2022); al5 - Immunization history:: Adult Immunizations up to date. - Infectious Disease History:: Denies. - Social history:: Smoking status: unknown. - Family history:: not pertinent. Screenin:30 [facility] ED Fall Risk Assessment (Adult) History of falling in the last 3 months, al5 including since admission No falls in past 3 months (0 pts) Confusion or Disorientation No (0 pts) Intoxicated or Sedated No (0 pts) Impaired Gait No (0 pts) Mobility Assist Device Used No (0 pt) Altered Elimination No (0 pt) Score/Fall Risk Level 0 - 2 = Low Risk Oriented to surroundings, Maintained a safe environment, Hourly rounding (assess needs \T\ fall precautionary measures) done. Abuse screen: Denies threats or abuse. Denies injuries from another. Nutritional screening: No deficits noted. Tuberculosis screening: No symptoms or risk factors identified. Assessment: 02:30 Reassessment: see triage assessment. al5 Vital Signs: 02:25 BP 134 / 87; Pulse 90; Resp 18; Temp 98.1; Pulse Ox 100% on R/A; Weight 70.76 kg; al5 Height 5 ft. 8 in. ; 03:08 BP 104 / 86; Pulse 90 MON; Resp 20 S; Pulse Ox 99% on R/A; aa10 02:25 Body Mass Index 23.72 (70.76 kg, 172.72 cm) al5 03:08 Normal Sinus Rhythm aa10 ED Course: 02:01 Patient arrived in ED. jj6 02:14 Sylvester Garner MD is Attending Physician. vk 02:25 Elidia Murrieta RN is Primary Nurse. al5 02:27 Triage completed. al5 02:30 Arm band placed on right wrist. Patient placed in the treatment room, in view of staff al5 members, on pulse oximetry. 02:30 Patient has correct armband on for positive identification. Bed in low position. Call al5 light in reach. Side rails up X2. Provided Education on: plan of care. 02:31 No provider procedures requiring assistance completed. al5 Administered Medications: 02:38 Drug: Ibuprofen PO 800 mg PO once Route: PO; al5 03:17 Follow up: Response: No adverse reaction; Marked relief of symptoms aa10 03:07 Drug: Rocephin (cefTRIAXone) IM 1 grams IM once Route: IM; Site: left gluteus; aa10 03:15 Follow up: Response: No adverse reaction; Marked relief of symptoms aa10 03:07 Drug: diphenhydrAMINE PO 50 mg PO once Route: PO; aa10 03:15 Follow up: Response: No adverse reaction; Marked relief of symptoms aa10 03:07 Drug: Methocarbamol PO 750 mg PO once Route: PO; aa10 03:14 Follow up: Response: No adverse reaction; Marked relief of symptoms aa10 Medication: 02:30 VIS not applicable for this client. al5 Outcome: 02:50 Discharge ordered by . sp4 03:22 Patient left the ED. aa10 Signatures: Steffany PeterjSylvester Marroquin MD MD sp4 Kathy Ryan Amanda, RN RN al5 Marlyn Herrmann RN RN aa10 Corrections: (The following items were deleted from the chart) 02:28 02:27 PSHx: cochlear implants (suicidal ideation); al5 al5
--- NOTE | 2024-07-23 02:51 | EDPHYS ---
Physician Documentation [facility] Name: Kana Galdamez Age: 33 yrs Sex: Male : 1990 Arrival Date: 07/23/2024 Time: 01:59 Bed 6 Private MD: ED Physician Sylvester Garner HPI: 07/23 02:49 This 33 yrs old Male presents to ER via Ambulatory with complaints of Nasal sp4 Congestion, Neck and Upper Back Pain. 23:37 33-year-old male presents with nasal congestion neck upper back pain and purulent nasal sp4 discharge starting 3 days ago. Historical: - Allergies: 02:27 ACETAMINOPHEN; al5 02:27 OPIATES; al5 - PMHx: 02:27 ADD/ADHD; Asthma; Bipolar disorder; Depression; drug abuse; HEARING IMPAIRED; homeless; al5 suicidal attempts-multiple; suicidal ideation; - PSHx: 02:27 cochlear implant (2022); al5 - Immunization history:: Adult Immunizations up to date. - Infectious Disease History:: Denies. - Social history:: Smoking status: unknown. - Family history:: not pertinent. ROS: 23:37 Constitutional: Negative for fever, chills, and weight loss, positive for nasal sp4 discharge, positive neck upper back pain, positive for congestion 23:37 All other systems are negative, Exam: 23:37 Constitutional: This is a well developed, well nourished patient who is awake, alert, sp4 and in no acute distress. Head/Face: Normocephalic, atraumatic. Eyes: Pupils equal round and reactive to light, extra-ocular motions intact. Lids and lashes normal. Conjunctiva and sclera are not injected. Cornea within normal limits. Periorbital areas with no swelling, redness, or edema. ENT: Nares patent. No nasal discharge, no septal abnormalities noted. Tympanic membranes are normal and external auditory canals are clear. Oropharynx with no redness, swelling, or masses, exudates, or evidence of obstruction, uvula midline. Mucous membranes moist. Neck: Trachea midline, no thyromegaly or masses palpated, and no cervical lymphadenopathy. Supple, full range of motion without nuchal rigidity, or vertebral point tenderness. Chest/axilla: Normal chest wall appearance and motion. Nontender with no deformity. No lesions are appreciated. Cardiovascular: Regular rate and rhythm with a normal S1 and S2. No gallops, murmurs, or rubs. Normal PMI, no JVD. No pulse deficits. Respiratory: Lungs have equal breath sounds bilaterally, clear to auscultation and percussion. No rales, rhonchi or wheezes noted. No increased work of breathing, no retractions or nasal flaring. Abdomen/GI: Soft, with normal bowel sounds. No distension or tympany. No guarding or rebound. No evidence of tenderness throughout. Back: No spinal tenderness. No costovertebral tenderness. Skin: Warm, dry with normal turgor. Normal color with no rashes, no lesions, and no evidence of cellulitis. MS/ Extremity: Pulses equal, no cyanosis. Neurovascular intact. Full, normal range of motion. Neuro: Awake and alert, GCS 15, oriented to person, place, time, and situation. Cranial nerves II-XII grossly intact. Motor strength 5/5 in all extremities. Sensory grossly intact. Psych: Awake, alert, with orientation to person, place and time. Behavior, mood, and affect are within normal limits Vital Signs: 02:25 BP 134 / 87; Pulse 90; Resp 18; Temp 98.1; Pulse Ox 100% on R/A; Weight 70.76 kg; al5 Height 5 ft. 8 in. ; 03:08 BP 104 / 86; Pulse 90 MON; Resp 20 S; Pulse Ox 99% on R/A; aa10 02:25 Body Mass Index 23.72 (70.76 kg, 172.72 cm) al5 03:08 Normal Sinus Rhythm aa10 MDM: 02:16 Medical Screening Exam initiated sp4 23:37 Differential Diagnosis: Bronchitis Influenza Upper Respiratory Infection Sinusitis. sp4 Data reviewed: vital signs, nurses notes. ED course: Exam consistent with acute sinusitis associated with purulent nasal discharge. Patient stable for discharge home with p.o. cefdinir. 07/23 02:16 Order name: Flu; Complete Time: 23:39 jj7 07/23 02:16 Order name: SARS RAPID; Complete Time: 23:39 jj7 Administered Medications: 02:38 Drug: Ibuprofen PO 800 mg PO once Route: PO; al5 03:17 Follow up: Response: No adverse reaction; Marked relief of symptoms aa10 03:07 Drug: Rocephin (cefTRIAXone) IM 1 grams IM once Route: IM; Site: left gluteus; aa10 03:15 Follow up: Response: No adverse reaction; Marked relief of symptoms aa10 03:07 Drug: diphenhydrAMINE PO 50 mg PO once Route: PO; aa10 03:15 Follow up: Response: No adverse reaction; Marked relief of symptoms aa10 03:07 Drug: Methocarbamol PO 750 mg PO once Route: PO; aa10 03:14 Follow up: Response: No adverse reaction; Marked relief of symptoms aa10 Disposition: 23:39 Chart complete. sp4 Disposition Summary: 07/23/24 02:50 Discharge Ordered Notes: Location: Home sp4 Problem: new sp4 Symptoms: have improved sp4 Condition: Stable sp4 Diagnosis - Acute maxillary sinusitis, unspecified sp4 - Acute frontal sinusitis, unspecified sp4 Followup: sp4 - With: Private Physician - When: 7 - 10 days - Reason: Recheck today's complaints Discharge Instructions: - Discharge Summary Sheet sp4 - Sinusitis, Adult sp4 Forms: - Patient Portal Instructions sp4 Prescriptions: - cefdinir 300 mg Oral capsule - take 1 capsule ORAL route 2 times per day for 10 days; 20 capsule; Refills: 0, sp4 Product Selection Permitted - diphenhydramine HCl 25 mg Oral capsule - take 2 capsule ORAL route every evening PRN congestion; 50 capsule; Refills: 0, sp4 Product Selection Permitted - Ibuprofen 800 mg Oral Tablet - take 1 tablet ORAL route every 8 hours As needed take with food; 30 tablet; sp4 Refills: 0, Product Selection Permitted Signatures: Dispatcher [employer] EDSylvester Feldman MD MD sp4 Elidia Murrieta RN RN al5 Marlyn Herrmann, RN RN aa10 Corrections: (The following items were deleted from the chart) 02:16 02:16 Influenza Screen (A \T\ B)+BA.LAB.BRZ ordered. EDMS EDMS 02:16 02:16 SARS-COV-2 Antigen Rapid+I.LAB.BRZ ordered. EDMS EDMS 02:28 02:27 PSHx: cochlear implants (suicidal ideation); al5 al5
[2024-07-23] MEDS ORDERED: CEFTRIAXONE 1000 MG/VIAL ONE (02:57)
[2024-07-23] MEDS ORDERED: methocarbamoL 750 MG TAB ONE (02:57)
[2024-07-23] MEDS ORDERED: LIDOCAINE 1% MPF 5 ML VIAL ONE (02:57)
[2024-07-23] MEDS ORDERED: DIPHENHYDRAMINE 25 MG TAB/CAP ONE (02:58)
[2024-07-23 03:02] LABS: SARS-CoV-2 Antigen CONTROL BLUE LINE VIS/BG OK; SARS-CoV-2 Antigen Rapid Res Negative (Negative)
[2024-07-23 03:33] VITALS: TEMP 98.1
[2024-07-23 03:34] VITALS: BP 104/86; O2SAT 99
== END 2024-07-23 03:22 | disposition home or self-care (01) ==
LOC: ER 01:59
DX: J01.00 Acute maxillary sinusitis, unspecified (principal); J01.10 Acute frontal sinusitis, unspecified; Z11.52 Encounter for screening for COVID-19
CPT/HCPCS: 36415; 87804 ×2; 96372; 99284; 87811; J2003; J0696

== ENCOUNTER 2025-05-15 21:12 | Emergency (ER) | payer MEDICAID, OTHER ==
[2025-05-15] MEDS ORDERED: LORazepam 2 MG/ML VIAL ONE (21:58)
[2025-05-15 22:07] LABS: Absolute Lymphocytes (CBC) 1.6 K/uL (0.7-4.9); Hematocrit 44.5 % (39.6-49.0); Hemoglobin 15.0 g/dL (13.6-17.9); MCH 29.7 pg (27.0-35.0); MCHC 33.7 g/dL (32.0-36.0); MCV 88.1 fL (80-100); MPV 7.7 fL (7.6-11.3); Nucleated RBC Absolute Count 0.0 (0-0); Nucleated Red Blood Cells % 0.0 % (0-0); RBC Red Blood Cell Count 5.04 M/uL (4.33-5.43); White Blood Count 16.90 thou/uL (4.3-10.9)
[2025-05-15 22:25] LABS: Influenza A Ag Negative; Influenza B Ag Negative; SARS-CoV-2 Antigen Rapid Res Negative (Negative)
[2025-05-15 23:25] LABS: Anion Gap 9.6 mEq/L (5.0-15.0); BUN Blood Urea Nitrogen 5.0 mg/dL (7-18); Glucose Level 107.0 mg/dL (74-106); NT PRO-BNP 343.0 pg/mL (<125); Potassium 3.6 mEq/L (3.5-5.1); Troponin High Sensitivity 4.6 pg/mL (<58.9)
--- NOTE | 2025-05-16 01:22 | EDPHYS ---
Physician Documentation [facility] Name: Kana Galdamez Age: 34 yrs Sex: Male : 1990 Arrival Date: 05/15/2025 Time: 21:12 Bed 6 Private MD: Tanner Rebolledo ED Physician Tera Mg HPI: 05/16 07:25 This 34 yrs old Male presents to ER via Ambulatory with complaints of Shortness Of tt7 Breath. 07:25 Patient reports chest pain that is described as right-sided intermittent sharp pain, tt7 started about an hour prior to arrival, associated with shortness of breath, associated with feeling of anxiety, past medical history includes depression, asthma, bipolar disorder, polysubstance abuse, no exacerbating or alleviating factors. Historical: - Allergies: 05/15 21:25 ACETAMINOPHEN; me1 21:25 OPIATES; me1 - PMHx: 21:25 ADD/ADHD; Asthma; Bipolar disorder; Depression; drug abuse; HEARING IMPAIRED; suicidal me1 attempts-multiple; suicidal ideation; - PSHx: 21:25 cochlear implant (2022); me1 - Immunization history:: Adult Immunizations up to date. - Infectious Disease History:: Denies. - Social history:: Smoking status: Reported history of juuling and/or vaping. ROS: 05/16 07:24 Constitutional: negative for fever. Abdomen/GI: negative for abdominal pain, nausea, tt7 vomiting, diarrhea. MS/Extremity: negative for injury and deformity. Skin: negative for rash. Neuro: negative for focal weakness. Cardiovascular: Positive for chest pain, Respiratory: Positive for shortness of breath, Exam: 07:25 Constitutional: vital signs reviewed, well appearing. Head/Face: normocephalic, tt7 atraumatic. Eyes: no conjunctival injection, anicteric sclerae. ENT: mucus membranes moist. Neck: trachea midline, no JVD, no meningismus. Chest/axilla: normal chest wall appearance and motion, nontender, no crepitus. Cardiovascular: regular rate and rhythm, no murmurs, no rubs, no lower extremity edema. Respiratory: normal respiratory effort, no accessory muscle use, lungs CTAB. Abdomen/GI: soft, nondistended, nontender, no guarding or rebound, negative Morris's sign, no McBurney point tenderness. Back: normal ROM. Skin: warm, dry, intact, normal turgor, normal color, no rash. MS/ Extremity: normal ROM of extremities, no gross deformities. Neuro: alert and oriented with appropriate mental status, normal speech, follows commands, no focal neurologic deficits. Psych: Very anxious Vital Signs: 05/15 21:22 BP 137 / 95; Pulse 108; Resp 20; Temp 98.1; Pulse Ox 98% ; Weight 91.63 kg; Height 5 me1 ft. 8 in. ; Pain 5/10; 22:30 BP 122 / 85; Pulse 99; Resp 20; Pulse Ox 96% ; vc1 23:30 BP 121 / 68; Pulse 88; Resp 20; Pulse Ox 95% ; vc1 05/16 00:00 BP 120 / 68; Pulse 86; Resp 20; Pulse Ox 96% ; vc1 01:30 BP 110 / 68; Pulse 95; Resp 20; Pulse Ox 93% ; vc1 05/15 21:22 Body Mass Index 30.71 (91.63 kg, 172.72 cm) me1 05/15 21:22 Pain Scale: Adult me1 MDM: 05/15 21:28 Medical Screening Exam initiated tt7 05/16 07:26 Differential diagnosis: Anxiety Reaction asthma, Myocardial Infarction pneumonia, tt7 Pneumothorax Psychogenic pulmonary edema, Pulmonary Embolism. Data reviewed: vital signs, nurses notes, lab test result(s), EKG, radiologic studies. ED course: Patient very anxious but well-appearing, stable vital signs, no respiratory distress, saturating appropriately on room air, standard cardiac workup ordered, pulmonary embolism ruled out with PERC rule, EKG nonischemic, patient's symptoms were treated with IV benzodiazepine, laboratory studies reassuring, I independently interpreted the patient's chest x-ray. On my interpretation, chest x-ray demonstrates no radiographic evidence of acute cardiopulmonary disease, laboratory studies reassuring, troponin negative, low risk heart score, repeat troponin obtained after 2+ hours, again negative, I reassessed the patient and symptoms resolved, after completion of the patient's emergency department evaluation, I do not suspect a life-threatening or disabling process. Patient is medically stable and not in need of emergent medical intervention. I had a detailed discussion with the patient regarding the historical points, exam findings, emergency department evaluation, diagnostic results, and the discharge diagnosis. I instructed the patient on outpatient management of their condition. I discussed the need for outpatient follow-up with a primary care physician. I informed the patient on return precautions, including the need to return to the ED if symptoms do not improve, worsen, or if there are any questions or concerns that arise at home. The patient was discharged in stable condition. 05/15 21:29 Order name: Basic Metabolic Panel; Complete Time: 23:52 tt7 05/15 21:29 Order name: CBC with Diff; Complete Time: 23:09 tt7 05/15 21:29 Order name: D-Dimer; Complete Time: 22:27 tt7 05/15 21:29 Order name: NT PRO-BNP; Complete Time: 23:52 tt7 05/15 21:29 Order name: Troponin HS; Complete Time: 23:52 tt7 05/15 21:33 Order name: COVID-19 Ag + Flu A+B Ag; Complete Time: 22:27 tt7 05/16 00:24 Order name: Troponin HS; Complete Time: 01:20 tt7 05/15 21:29 Order name: XRAY Chest (1 view) tt7 05/15 21:29 Order name: EKG; Complete Time: 21:29 tt7 05/15 21:29 Order name: Cardiac monitoring; Complete Time: 22:03 tt7 05/15 21:29 Order name: EKG - Nurse/Tech; Complete Time: 22:03 tt7 05/15 21:29 Order name: IV Saline Lock; Complete Time: 21:58 tt7 05/15 21:29 Order name: Labs collected and sent; Complete Time: 21:58 7 05/15 21:29 Order name: O2 Per Protocol; Complete Time: 21:59 tt7 05/15 21:29 Order name: O2 Sat Monitoring; Complete Time: 21:59 tt7 Administered Medications: 05/15 22:11 Drug: Ativan IVP 0.5 mg IVP once Route: IVP; Site: right antecubital; tb4 05/16 00:34 Follow up: Response: No adverse reaction; Anxiety decreased; RASS: Drowsy (-1) tb4 Disposition: 07:28 Co-signature as Attending Physician, Tera Mg DO. tt7 Disposition Summary: 05/16/25 01:21 Discharge Ordered Notes: Location: Home tt7 Problem: new tt7 Symptoms: have improved tt7 Condition: Stable tt7 Diagnosis - Chest pain, unspecified tt7 - Dyspnea tt7 Followup: tt7 - With: Emergency Department - When: As needed - Reason: Followup: tt7 - With: Tanner Rebolledo DO - When: 1 - 2 days - Reason: Recheck today's complaints, Continuance of care, Re-evaluation by your physician Discharge Instructions: - Discharge Summary Sheet tt7 - Nonspecific Chest Pain, Adult, [id number] tt7 Forms: - Medication Reconciliation Form tt7 - Antibiotic Education tt7 - Prescription Opioid Use tt7 - Patient Portal Instructions tt7 - Leadership Thank You Letter tt7 Signatures: Dispatcher [employer] Zulay Mae, RN RN me1 Carmella Chavez RN RN tb4 Tera Mg DO DO tt7 Corrections: (The following items were deleted from the chart) 05/15 21:29 21:29 BASIC METABOLIC PANEL+C.LAB.BRZ ordered. EDMS EDMS 21:29 21:29 CBC+H.LAB.BRZ ordered. EDMS EDMS 21:29 21:29 D-DIMER+COAG.LAB.BRZ ordered. EDMS EDMS 21:29 21:29 PROBNP+C.LAB.BRZ ordered. EDMS EDMS 21:29 21:29 Troponin High Sensitivity+C.LAB.BRZ ordered. EDMS EDMS 21:33 21:33 COVID-19 Ag + Flu A+B Ag+I.LAB.BRZ ordered. EDMS EDMS
--- NOTE | 2025-05-16 01:22 | ER ---
Nurse's Notes [facility] Name: Kana Galdamez Age: 34 yrs Sex: Male : 1990 Arrival Date: 05/15/2025 Time: 21:12 Bed 6 Private MD: Tanner Rebolledo Diagnosis: Chest pain, unspecified;Dyspnea Presentation: 05/15 21:22 Chief complaint: Patient states: cough, congestion, sob and diarrhea since yesterday. me1 SOB worse today. Pain to right ear and jaw for about a week. Saw ENT yesterday as he has a cochlear implant on the right. No diagnosis or meds given then. Coronavirus screen: Vaccine status: Patient reports being unvaccinated. Ebola Screen: No symptoms or risks identified at this time. Initial Sepsis Screen: Does the patient meet any 2 criteria? HR > 90 bpm. Does the patient have a suspected source of infection? No. Patient's initial sepsis screen is negative. Risk Assessment: Do you want to hurt yourself or someone else? Patient reports no desire to harm self or others. Onset of symptoms was May 14, 2025. 21:22 Method Of Arrival: Ambulatory wi1 21:22 Acuity: RHETT 3 me1 Triage Assessment: 05/16 00:35 Respiratory: Reports shortness of breath at rest. tb4 Historical: - Allergies: 05/15 21:25 ACETAMINOPHEN; me1 21:25 OPIATES; me1 - PMHx: 21:25 ADD/ADHD; Asthma; Bipolar disorder; Depression; drug abuse; HEARING IMPAIRED; suicidal me1 attempts-multiple; suicidal ideation; - PSHx: 21:25 cochlear implant (2022); me1 - Immunization history:: Adult Immunizations up to date. - Infectious Disease History:: Denies. - Social history:: Smoking status: Reported history of juuling and/or vaping. Screenin:54 [facility] ED Fall Risk Assessment (Adult) History of falling in the last 3 months, tb4 including since admission No falls in past 3 months (0 pts) Confusion or Disorientation No (0 pts) Intoxicated or Sedated No (0 pts) Impaired Gait No (0 pts) Mobility Assist Device Used No (0 pt) Altered Elimination No (0 pt) Score/Fall Risk Level 0 - 2 = Low Risk Maintained a safe environment. Abuse screen: Denies threats or abuse. Nutritional screening: No deficits noted. Tuberculosis screening: No symptoms or risk factors identified. Assessment: 22:00 General: Appears uncomfortable, Behavior is agitated, anxious. Pain: Complains of pain tb4 in Generalized pain and bodyaches Pain does not radiate. Pain currently is 5 out of 10 on a pain scale. Quality of pain is described as aching, Pain began gradually, 1 day ago. Is continuous. Neuro: Level of Consciousness is awake, alert, obeys commands, Oriented to person, place, time, situation, Moves all extremities. Full function Gait is steady, Speech is normal, Facial symmetry appears normal. Cardiovascular: Rhythm is regular. Respiratory: Airway is patent Respiratory effort is even, unlabored, Respiratory pattern is regular, Breath sounds are clear bilaterally. the patient has mild shortness of breath. GI: No signs and/or symptoms were reported involving the gastrointestinal system. : No signs and/or symptoms were reported regarding the genitourinary system. EENT: No signs and/or symptoms were reported regarding the EENT system. Patient congested. 22:32 Reassessment: Patient appears in no apparent distress at this time. Patient and/or vc1 family updated on plan of care and expected duration. Pain level reassessed. 05/16 00:07 Reassessment: Patient appears in no apparent distress at this time. No changes from vc1 previously documented assessment. Patient and/or family updated on plan of care and expected duration. Pain level reassessed. Patient is alert, oriented x 3, equal unlabored respirations, skin warm/dry/pink. 01:37 Reassessment: Patient appears in no apparent distress at this time. No changes from vc1 previously documented assessment. Patient and/or family updated on plan of care and expected duration. Pain level reassessed. Patient is alert, oriented x 3, equal unlabored respirations, skin warm/dry/pink. Vital Signs: 05/15 21:22 BP 137 / 95; Pulse 108; Resp 20; Temp 98.1; Pulse Ox 98% ; Weight 91.63 kg; Height 5 me1 ft. 8 in. ; Pain 5/10; 22:30 BP 122 / 85; Pulse 99; Resp 20; Pulse Ox 96% ; vc1 23:30 BP 121 / 68; Pulse 88; Resp 20; Pulse Ox 95% ; vc1 05/16 00:00 BP 120 / 68; Pulse 86; Resp 20; Pulse Ox 96% ; vc1 01:30 BP 110 / 68; Pulse 95; Resp 20; Pulse Ox 93% ; vc1 05/15 21:22 Body Mass Index 30.71 (91.63 kg, 172.72 cm) me1 05/15 21:22 Pain Scale: Adult wi1 ED Course: 05/15 21:16 Patient arrived in ED. gm2 21:17 Tanner Rebolledo DO is Private Physician. gm2 21:25 Triage completed. me1 21:25 Arm band placed on Patient placed in waiting room. me1 21:27 Tera Mg DO is Attending Physician. me1 21:58 COVID-19 Ag + Flu A+B Ag Sent. ss12 21:59 Basic Metabolic Panel Sent. ss12 21:59 CBC with Diff Sent. ss12 21:59 D-Dimer Sent. ss12 21:59 NT PRO-BNP Sent. ss12 21:59 Troponin HS Sent. ss12 21:59 Inserted saline lock: 22 gauge in right antecubital area, using aseptic technique. ss12 Blood collected. Flushed with 10 mL NS. 22:54 Patient has correct armband on for positive identification. Bed in low position. Call tb4 light in reach. Side rails up X 1. Adult w/ patient. Client placed on continuous cardiac and pulse oximetry monitoring. NIBP monitoring applied. vacuum bottle assembler on. Door closed. Lights dimmed. Warm blanket given. 23:20 XRAY Chest (1 view) In Process Unspecified. EDMS 05/16 00:36 No provider procedures requiring assistance completed. tb4 00:36 Initial lab(s) drawn, by ED staff, sent to lab. tb4 00:46 Troponin HS Sent. tb4 01:21 Tanner Rebolledo DO is Referral Physician. tt7 01:41 IV discontinued, intact, bleeding controlled, No redness/swelling at site. Pressure tb4 dressing applied. 01:43 Provided Education on: Follow up with PCP. tb4 Administered Medications: 05/15 22:11 Drug: Ativan IVP 0.5 mg IVP once Route: IVP; Site: right antecubital; tb4 05/16 00:34 Follow up: Response: No adverse reaction; Anxiety decreased; RASS: Drowsy (-1) tb4 Medication: 00:36 VIS not applicable for this client. tb4 Outcome: 01:21 Discharge ordered by . tt7 01:41 Discharged to home ambulatory, tb4 01:41 Condition: stable 01:41 Discharge instructions given to patient, Instructed on discharge instructions, follow up and referral plans. Demonstrated understanding of instructions, follow-up care, 01:44 Patient left the ED. tb4 Signatures: Dispatcher [employer] EDCat Campos RN RN vc1 Zulay Palumbo, RN RN wi1 Christina Daniel 2 Carmella Chavez RN RN tb4 Juliet Chung RN RN ss12 Tera Mg, DO tt7
--- NOTE | 2025-05-16 01:44 | RAD REPORT ---
XR CHEST 1 VIEW CLINICAL INDICATION: Dyspnea COMPARISON: None FINDINGS: SUPPORT DEVICES: None LUNGS/PLEURAL SPACES: Mild bibasilar interstitial opacities may represent vascular congestion, subseg mental atelectasis or infiltrates. No pleural effusion. No pneumothorax. HEART/MEDIASTINUM: Within normal range. BONES/UPPER ABDOMEN/SOFT TISSUES: No acute findings. IMPRESSION: Mild bibasilar interstitial opacities may represent vascular congestion, subsegmental atelectasis or infiltrates. Electronically signed by: Isabella Guo MD 05/16/2025 01:35 AM CDT Due to temporary technical issues with the PACS/[employer] reporting system, reports are being davidson d by the in-house radiologist without review as a courtesy to ensure prompt reporting the interpreting radiologist is fully responsible for the content of the report. Transcribed Date/Time: 05/16/2025 1:44 AM
[2025-05-16 07:52] VITALS: TEMP 98.1
[2025-05-16 08:00] VITALS: BP 110/68; O2SAT 93
== END 2025-05-16 01:44 | disposition home or self-care (01) ==
LOC: ER 21:12
DX: R07.9 Chest pain, unspecified (principal); R06.00 Dyspnea, unspecified; Z11.52 Encounter for screening for COVID-19
CPT/HCPCS: 36415; 71045; 80048; 83880; 84484; 85025; 85379; 87428; 93005; 96374; 99285